=== PATIENT | female | born 1975 | race Caucasian/White ===

== ENCOUNTER → 2016-06-16 | Outpatient (REF) | payer MEDICARE, MEDICAID, OTHER ==
[~2016-06-16] MED LIST: ACET500T37 PO; MOTR200T44 PO; NEXI40CA PO; PERC5TAB6 PO; SYNT112T2 PO
[2016-06-16 17:55] LABS: FREE T4 1.28 NG/DL (0.76-1.46)
== END ==
LOC: M SFHCLERA 14:15
PROVIDERS: ATTEND Physician Assistant
DX: E03.9 Hypothyroidism, unspecified (principal)
CPT/HCPCS: 84439; 84443; G0463

== ENCOUNTER → 2016-07-22 | Outpatient (CLI) | payer MEDICARE, MEDICAID ==
--- NOTE | 2016-07-22 10:28 | REP ---
RIGHT UPPER QUADRANT ULTRASOUND: Real-time sonographic evaluation of right upper quadrant performed. Gallbladder demonstrates no evidence of intraluminal sludge or calculi, wall thickening, or pericholecystic fluid. There is no intrahepatic or extrahepatic biliary dilatation, common bile duct measuring 4 mm in diameter. Liver demonstrates heterogeneous increased echotexture compatible with diffuse fibrofatty infiltration. No gross liver or pancreatic mass is seen. Pancreas is not well seen due to overlying bowel gas. Right kidney demonstrates no hydronephrosis or nephrolithiasis with normal size at 10.1 cm in length. IMPRESSION: Diffuse fibrofatty infiltration of the liver. Signed by Twan Salcedo MD 07/22/2016 04:50 P
== END ==
LOC: M RAD 09:12
PROVIDERS: ATTEND Surgery
DX: K82.4 Cholesterolosis of gallbladder (principal)

== ENCOUNTER → 2016-08-31 | Outpatient (CLI) | payer MEDICARE, MEDICAID ==
--- NOTE | 2016-08-31 18:26 | ECHO ---
DATE OF PROCEDURE: 08/31/2016 REFERRING PHYSICIAN: Jacquelyn Vidales MD PATIENT LOCATION: Outpatient INDICATION: Pulmonary hypertension. HEIGHT: 65 inches WEIGHT: 197 pounds DIMENSIONS: IVS: 0.9 LV: 4.1 LVPW: 1.0 LA: 2.9 Aorta: 2.9 FINDINGS: The study is of good technical quality. Left ventricle is of normal size and normal left ventricle (LV) systolic function. Estimated left ventricular ejection fraction (LVEF) 60-65%. Right ventricle is also normal size and systolic function. All four cardiac valves were well visualized and appear normal. No pericardial effusion is present. Inferior vena cava is normal size. Aortic root and aortic arch appear normal. Abdominal aorta was not visualized. Doppler interrogation reveals competent aortic valve. There is also no significant mitral stenosis or insufficiency and only trace tricuspid insufficiency. Calculated pulmonary artery pressure is within normal limits. Pulmonic valve is functionally competent. Mitral inflow pattern and tissue Doppler imaging of mitral annulus reveal normal diastolic function. CONCLUSIONS: 1. Study is of good technical quality. 2. Normal left ventricle (LV) size and systolic function, normal diastolic function. 3. No significant valvular disease. 4. Normal central venous pressure and likely normal pulmonary artery pressure. COMMENT: Subacute bacterial endocarditis (SBE) prophylaxis is not recommended. This study does not support diagnosis of pulmonary hypertension.
== END ==
LOC: M CARPUL 13:05
PROVIDERS: ATTEND Internal Medicine Rheumatology
DX: M34.1 CR(E)ST syndrome (principal); I10 Essential (primary) hypertension

== ENCOUNTER → 2016-09-17 | Outpatient (REF) | payer MEDICARE, MEDICAID, OTHER ==
[2016-09-17 20:34] LABS: MEAN CORPUSCULAR HEMOGLOBIN 30.1 pg (27.0-33.0); MEAN CORPUSCULAR HGB CONC 33.3 g/dl (32.0-36.5); MEAN CORPUSCULAR VOLUME 90.5 fl (80.0-96.0); RED CELL DISTRIBUTION WIDTH 12.8 % (11.5-14.5)
[2016-09-17 21:19] LABS: ALBUMIN 3.9 GM/DL (3.2-5.2); ALBUMIN/GLOBULIN RATIO 1.15 (1.00-1.93); ALKALINE PHOSPHATASE 58 U/L (45-117); ALT/SGPT 39 U/L (12-78); ANION GAP 7 MEQ/L (8-16); AST/SGOT 23 U/L (15-37); BILIRUBIN,TOTAL 0.6 MG/DL (0.2-1.0); BLOOD UREA NITROGEN 9 MG/DL (7-18); CARBON DIOXIDE LEVEL 26 MEQ/L (21-32); CHLORIDE LEVEL 108 MEQ/L (98-107); CREATININE FOR GFR 0.92 MG/DL (0.55-1.02); GLOMERULAR FILTRATION RATE > 60.0 (>58); GLUCOSE, FASTING 75 MG/DL (70-105); POTASSIUM SERUM 4.1 MEQ/L (3.5-5.1); SODIUM LEVEL 141 MEQ/L (136-145); TOTAL PROTEIN 7.3 GM/DL (6.4-8.2)
== END ==
LOC: M SFHCLERA 15:14
PROVIDERS: ATTEND Physician Assistant
DX: R59.9 Enlarged lymph nodes, unspecified (principal); E03.9 Hypothyroidism, unspecified
CPT/HCPCS: 80053; 84439; 84443; 85027; G0463

== ENCOUNTER → 2017-03-15 | Outpatient (CLI) | payer MEDICARE, MEDICAID, OTHER ==
[~2017-03-15] MED LIST changes: +ACET-683 PO; -ACET500T37 PO; +PERC5TAB12 PO; -PERC5TAB6 PO
--- NOTE | 2017-03-15 17:02 | REP ---
Clinical: Right hip pain. Technique: Neutral and frog lateral views of the right hip. Findings: Mild age-related changes include increased sclerosis to the acetabular roof with subtle marginal spurring. No acute fracture dislocation. The femoral head/neck appear normal. Surrounding soft tissues are unremarkable. Impression: Mild age-related changes. No overt osteoarthritic degenerative changes noted. Signed by Chirag Price MD 03/15/2017 04:53 P
== END ==
LOC: M LRY 15:56
PROVIDERS: ATTEND Physician Assistant
DX: M25.551 Pain in right hip (principal); E03.9 Hypothyroidism, unspecified; Z72.0 Tobacco use; K21.9 Gastro-esophageal reflux disease without esophagitis; H91.93 Unspecified hearing loss, bilateral
CPT/HCPCS: 73502; 80053; 84443; 85027; G0463

== ENCOUNTER → 2017-03-15 | Outpatient (REF) | payer MEDICARE, MEDICAID, OTHER ==
[2017-03-15 19:06] LABS: MEAN CORPUSCULAR HEMOGLOBIN 29.1 pg (27.0-33.0); MEAN CORPUSCULAR HGB CONC 32.6 g/dl (32.0-36.5); MEAN CORPUSCULAR VOLUME 89.3 fl (80.0-96.0); PLATELET COUNT, AUTOMATED 314 10^3/uL (150-450); RED CELL DISTRIBUTION WIDTH 12.6 % (11.5-14.5); WHITE BLOOD COUNT 11.2 10^3/uL (4.0-10.0)
[2017-03-15 19:19] LABS: ALBUMIN 3.8 GM/DL (3.2-5.2); ALBUMIN/GLOBULIN RATIO 1.06 (1.00-1.93); ALKALINE PHOSPHATASE 55 U/L (45-117); ALT/SGPT 26 U/L (12-78); ANION GAP 6 MEQ/L (8-16); AST/SGOT 17 U/L (7-37); BILIRUBIN,TOTAL 0.6 MG/DL (0.2-1.0); BLOOD UREA NITROGEN 9 MG/DL (7-18); CALCIUM LEVEL 8.9 MG/DL (8.5-10.1); CARBON DIOXIDE LEVEL 24 MEQ/L (21-32); CHLORIDE LEVEL 109 MEQ/L (98-107); CREATININE FOR GFR 0.96 MG/DL (0.55-1.02); GLOMERULAR FILTRATION RATE > 60.0 (>58); GLUCOSE, FASTING 81 MG/DL (70-105); SODIUM LEVEL 139 MEQ/L (136-145); TOTAL PROTEIN 7.4 GM/DL (6.4-8.2)
== END ==
LOC: M SFHCLERA 15:51
PROVIDERS: ATTEND Physician Assistant
DX: E03.9 Hypothyroidism, unspecified (principal); M25.551 Pain in right hip

== ENCOUNTER → 2017-07-08 | Outpatient (CLI) | payer MEDICARE, MEDICAID | LOC: M RAD 08:34 | DX: M16.11 Unilateral primary osteoarthritis, right hip (principal) | CPT/HCPCS: 73721 ==

== ENCOUNTER → 2017-09-29 | Outpatient (REF) | payer MEDICARE, MEDICAID, OTHER ==
[2017-09-29 20:15] LABS: CHOLESTEROL LEVEL 185 MG/DL (<200); CHOLESTEROL RISK RATIO 4.204 (<5); HDL CHOLESTEROL 44 MG/DL (>40); NON-HDL-C 141 MG/DL; TRIGLYCERIDES LEVEL 145 MG/DL (<150)
[2017-09-29 20:16] LABS: ESTIMATED AVERAGE GLUCOSE 82 MG/DL (60-110); HEMOGLOBIN A1c 4.5 %
== END ==
LOC: M SFHCLERA 16:11
DX: Z13.1 Encounter for screening for diabetes mellitus (principal); Z13.220 Encounter for screening for lipoid disorders; F17.200 Nicotine dependence, unspecified, uncomplicated; K21.9 Gastro-esophageal reflux disease without esophagitis; I73.00 Raynaud's syndrome without gangrene; E03.9 Hypothyroidism, unspecified; K62.89 Other specified diseases of anus and rectum; M34.9 Systemic sclerosis, unspecified; E66.09 Other obesity due to excess calories; Z68.35 Body mass index [BMI] 35.0-35.9, adult; Z79.899 Other long term (current) drug therapy
CPT/HCPCS: 83036

== ENCOUNTER → 2017-11-03 | Outpatient (REF) | payer MEDICARE, MEDICAID, OTHER | LOC: M SFHCLERA 09:34 | DX: D22.5 Melanocytic nevi of trunk (principal); D22.71 Melanocytic nevi of right lower limb, including hip | CPT/HCPCS: 88305 ==

== ENCOUNTER 2018-02-10 12:30 | Day surgery (SDC) | payer MEDICARE, MEDICAID ==
[2018-02-10] MEDS: NS 1,000 ML IV (13:05)
[2018-02-10] MEDS ORDERED: PROPOFOL 200 MG/20 ML VIAL As Ordered ×2 (13:39→13:47)
== END 2018-02-10 16:42 | disposition home or self-care (01) ==
LOC: M OPP 12:30
DX: R21 Rash and other nonspecific skin eruption (principal); D12.5 Benign neoplasm of sigmoid colon; K64.8 Other hemorrhoids; R19.4 Change in bowel habit; R15.9 Full incontinence of feces; E03.9 Hypothyroidism, unspecified; K21.9 Gastro-esophageal reflux disease without esophagitis; H91.90 Unspecified hearing loss, unspecified ear; M16.11 Unilateral primary osteoarthritis, right hip; M34.9 Systemic sclerosis, unspecified; I73.01 Raynaud's syndrome with gangrene; Z79.899 Other long term (current) drug therapy; Z90.710 Acquired absence of both cervix and uterus
CPT/HCPCS: 45385

== ENCOUNTER → 2018-03-07 | Outpatient (REF) | payer MEDICARE, MEDICAID, OTHER ==
[2018-03-07 21:23] LABS: THYROID STIMULATING HORMONE 0.257 uIU/ML (0.358-3.740)
== END ==
LOC: M SFHCLERA 15:28
DX: E03.9 Hypothyroidism, unspecified (principal); Z23 Encounter for immunization
CPT/HCPCS: 84443

== ENCOUNTER → 2018-07-10 | Outpatient (CLI) | payer MEDICARE, MEDICAID ==
[~2018-07-10] MED LIST changes: +CELE1CAP9; +PANT40TA3
--- NOTE | 2018-07-23 23:32 | ECWPNPC ---
PATIENT NAME: YUSEF TAO : 1975 GENDER: FEMALE VISIT DATE: 07/10/2018 DISCHARGE DATE: 07/10/18 1606 VISIT LOCKED DATE TIME: PHYSICIAN: CYNTHIA MORA MD RESOURCE: CYNTHIA MORA MD REASON FOR APPOINTMENT 1. (R) HIP PAIN- PATIENT IS DEAF HISTORY OF PRESENT ILLNESS PAIN SCREENING: PATIENT HAS A COMPLAINT OF ACUTE OR CHRONIC PAIN :YES 42 YEAR OLD FEMALE PATIENT WITH A HSITORY OF CHRONIC LOW BACK AND RIGHT HIP PAIN. THE PATIENT DESCRIBES THE PAIN ACHING, SORE, STIFF, AND INTERMITTENT WITH A PAIN SCORE OF 4-8/10 DEPENDING ON PHYSICAL ACTIVITY. THE PATIENT SAYS THAT SHE HAS HAD THIS PAIN FOR ABOUT 2 YEARS AND IT IS LOCATED OVER HER LOW BACK AREA AND RIGHT HIP. THE PATIENT SAYS THAT HER RIGHT HIP IS CURRENTLY THE WORST PAIN. THE PATIENT SAYS THAT SHE HAS A HISTORY OF ARTHRITIS OVER HER RIGHT HIP AND HAS RECEIVED INJECTIONS WITH VARIABLE RESULTS. THE PATIENT SAYS THAT SHE HAS DIFFICULTY SLEEPING DUE TO THIS PAIN. FALL RISK SCREENING: SCREENING :NO FALLS REPORTED IN THE LAST YEAR CURRENT MEDICATIONS TAKING LEVOTHYROXINE SODIUM 112 MCG TABLET 1 TABLET ON AN EMPTY STOMACH IN THE MORNING ORALLY ONCE A DAY FOR LOW THYROID TAKING PANTOPRAZOLE SODIUM 40 MG TABLET DELAYED RELEASE 1 TABLET ORALLY ONCE A DAY TAKING SPIRONOLACTONE 50 MG TABLET 1 TABLET FOR 7 DAYS THEN INCREASE TO 2 TABLETS ORALLY WITH FOOD ONCE A DAY NOT-TAKING MELOXICAM 7.5 MG TABLET 1 TABLET ORALLY ONCE A DAY NOT-TAKING DOXYCYCLINE HYCLATE 100 MG CAPSULE 1 CAPSULE ORALLY TWICE A DAY FOR ACNE NOT-TAKING ADAPALENE 0.1 % GEL PEA SIZED AMOUNT EXTERNALLY TO FACE EVERY OTHER NIGHT NOT-TAKING [id number]-[id number] 3.5-46713-9.1 SUSPENSION APPLY ONE DROP INTO BOTH EYES FOUR TIMES A DAY DIRECTED OPHTHALMIC NOT-TAKING ADAPALENE 0.1 % GEL 1 APPLICATION TO AFFECTED AREA IN THE EVENING EXTERNALLY PEA SIZED AMOUNT TO ENTIRE FACE EVERY OTHER DAY MEDICATION LIST REVIEWED AND RECONCILED WITH THE PATIENT PAST MEDICAL HISTORY HYPOTHYROIDISM (2000) LOW BACK PAIN CREST SYNDROME ALLERGIES N.K.D.A. SURGICAL HISTORY LEFT FOOT SURGERY 1996? HYSTERECTOMY- PARTIAL 11/20/14 COLONOSCOPY 02/10/2018 FAMILY HISTORY FATHER: ALIVE, CANCER, SKIN, CANCER, PROSTATE MOTHER: ALIVE, DIABETES SIBLINGS: ALIVE, KIDNEY DISEASE (SISTER) PATERNAL GRAND FATHER: , [place] PATERNAL GRAND MOTHER: ALIVE, CORONARY ARTERY DISEASE MATERNAL GRAND FATHER: , [place] MATERNAL GRAND MOTHER: , STROKE 1 BROTHER(S) , 1 SISTER(S) . SOCIAL HISTORY GENERAL: TOBACCO USE ARE YOU A:CURRENT SMOKER ARE YOU INTERESTED IN QUITTING?NOT READY TO QUIT HOW MANY CIGARETTES A DAY DO YOU SMOKE?03-07 PATIENT COUNSELED ON THE DANGERS OF TOBACCO USE AND URGED TO QUIT:03/07/2018 SMOKING CESSATION INFORMATION GIVEN03/07/2018 LATEX QUESTIONNAIRE LATEX ALLERGY : HAVE YOU EVER DEVELOPED ANY TYPE OF REACTION AFTER HANDLING LATEX PRODUCTS SUCH RUBBER GLOVES, CONDOMS, DIAPHRAGMS, BALLOONS, SOCKS, OR UNDERWEAR?NO LATEX ALLERGY : HAVE YOU EVER DEVELOPED ANY TYPE OF REACTION DURING OR AFTER DENTAL APPOINTMENT, VAGINAL/RECTAL EXAMINATION, SURGICAL PROCEDURE, OR ANY OTHER EXPOSURE?NO DATE ASKED : 07/03/2018 LATEX RISK : HAVE YOU EVER HAD ANY DIFFICULTY BREATHING OR HIVES AFTER EATING OR HANDLING ANY FRUITS, OR VEGETABLES; SUCH KIWI, BANANAS, STONE FRUITS, OR CHESTNUTSNO LATEX RISK : DO YOU HAVE A PREVIOUS PERSONAL HISTORY OF MORE THAN NINE SURGERIES, SPINA BIFIDA, OR REPEATED CATHERTIZATIONS? NO LATEX RISK : ARE YOU FREQUENTLY EXPOSED TO LATEX PRODUCTS IN YOUR OCCUPATION?NO LUNG CANCER SCREENING SMOKING STATUS:CURRENT SMOKER IS THE PATIENT BETWEEN THE AGE OF 53 AND 75?NO BMI CARE GOAL FOLLOW-UP ABOVE NORMAL BMI FOLLOW-UPDIETARY MANAGEMENT EDUCATION, GUIDANCE, AND COUNSELING, DIETARY NEEDS EDUCATION RECREATIONAL DRUG USE DRUG USE?NO CAFFEINE CAFFEINE USE?YES HOW OFTEN AND HOW MUCH? COFFEE, TEA SEXUAL HX HAD SEX IN THE LAST 12 MONTHS (VAGINAL, ORAL, OR ANAL)?NO LMP:2014 HAVE YOU EVER HAD AN STD?NO HIV / HEP-C SCREENING HIV TEST OFFERED TO PATIENT:YES DATE OFFERED:09/29/2017 TEST ACCEPTED:NO HEP-C TEST OFFERED TO PATIENT:YES DATE OFFERED:09/29/2017 REASON:PATIENT DECLINED TEST ACCEPTED:NO REASON:PATIENT DECLINED BROCHURE PROVIDED TO PATIENTNO DENOMINATIONAL [id number] NONE LANGUAGE LANGUAGES SPOKEN:OTHER SIGN EDUCATION LEVEL OF EDUCATION:FINISHED HIGH SCHOOL LEARNING BARRIERS / SPECIAL NEEDS CHANGE FROM LAST VISIT?NO BARRIERS TO LEARNING?NO HEARING IMPAIRED?YES : PT IS DEAF VISION IMPAIRED?YES :CORRECTIVE LENSES COGNITIVELY IMPAIRED?NO READINESS TO LEARN?YES LEARNING PREFERENCES?NO LEARNING CAPABILITIES PRESENT?YES EMOTIONAL BARRIERS?NO SPECIAL DEVICES?NO ABSTRACT MAKER NEEDED?YES DOMESTIC VIOLENCE DO YOU FEEL SAFE IN YOUR ENVIRONMENT?YES OCCUPATION: UNEMPLOYED. DIET: REGULAR. EXERCISE: NO REGULAR EXERCISE. MARITAL STATUS: SINGLE. PAIN CLINIC PFS, CLERGY, PUBLIC HEALTH REFERRALS HAS THE PATIENT BEEN EDUCATED REGARDING HIS/HER PLAN OF CARE?YES HAS THE PATIENT BEEN EDUCATED REGARDING PAIN, THE RISK FOR PAIN, THE IMPORTANCE OF EFFECTIVE PAIN MANAGEMENT, AND THE PAIN ASSESSMENT PROCESS?YES ADVANCE DIRECTIVE ADVANCE DIRECTIVE DISCUSSED WITH PATIENT:YES HCP FORM GIVEN TO PT, HELP OFFERED, PT WANTS TO TAKE HOME AND THINK ABOUT IT. EM HOSPITALIZATION/MAJOR DIAGNOSTIC PROCEDURE SURGERY REVIEW OF SYSTEMS REVIEWED BY: PROVIDER: CYNTHIA MORA MD . CONSTITUTIONAL: ANY CHANGE IN YOUR MEDICAL CONDITION? NO . CHILLS NO . FEVER NO . INFECTION: DO YOU HAVE NEW INFECTIONS? NO . DO YOU HAVE HISTORY OF MRSA? NO . MUSCULOSKELETAL: ANY NEW PATTERNS OF PAIN OR NUMBNESS? YES, BILAT HAND AND FOOT NUMBNESS, TINGLING AT NIGHT . SYTEMIC LUPUS NO . GASTROENTEROLOGY: ANY NEW CHANGE IN BOWEL CONTROL? NO . BARRETTS ESOPHAGUS NO . CIRRHOSIS NO . HEPATITIS NO . LIVER FAILURE NO . ACID REFLUX YES . UNEXPLAINED WEIGHT LOSS NO . GENITOURINARY: ANY NEW CHANGE IN BLADDER CONTROL? NO . IS THERE A CHANCE YOU COULD BE ? NO . HEMATOLOGY/LYMPH: DO YOU TAKE ANY BLOOD THINNERS? (FOR EXAMPLE- COUMADIN, PLAVIX, AGGRENOX, PLATEL, PRADAXA, OR XARELTO) NO . WHEN WAS YOUR LAST DOSE? DATE: TIME: . LOW PLATELET COUNT NO . SICKLE CELL DISEASE NO . VON WILLIEBRANDS NO . FACTOR V LEIDEN NO . THALLASEMIA NO . ANEMIA NO . EASY BRUISING NO . NEUROLOGY: HAVE YOU FALLEN IN THE PAST 12 MONTHS? YES, LAST YEAR FROM LOSS OF BALANCE, PT DENIES TX FOR ANY INJURIES . ANY NEW EXTREMITY NUMBNESS OR WEAKNESS? YES, BILAT HAND AND FOOT NUMBNESS X 5 YEARS . HEAD INJURY NO . DEMENTIA NO . CEREBRAL PALSY NO . MULTIPLE SCLEROSIS NO . DIZZINESS NO . HEADACHE NO . STROKES NO . VERTIGO NO . CARDIOLOGY: DO YOU HAVE A PACEMAKER OR DEFIBRILLATOR? NO . ANGINA NO . HEART ATTACK NO . HEART SURGERY NO . CONGESTIVE HEART FAILURE/FLUID OVERLOAD NO . CHEST PAIN NO . HIGH BLOOD PRESSURE NO . IRREGULAR HEART BEAT NO . RESPIRATORY: HAVE YOU BEEN SICK IN THE PAST WEEK? NO . FEVER NO . FLU LIKE SYMPTOMS? NO . CPAP NO . BYPAP NO . ASTHMA NO . EMPHYSEMA NO . CHRONIC LUNG DISEASES NO . SHORTNESS OF BREATH ON EXERTION NO . COUGH NO . SNORING NO . INTEGUMENTARY: DO YOU HAVE ANY RASHES OR OPEN SORES? NO . ALLERGIC/IMMUNO: ARE YOU ALLERGIC TO IV DYE? NO . ANY NEW ALLERGIES? NO . PSYCHIATRIC: DO YOU HAVE THOUGHTS OF HURTING YOURSELF OR SOMEONE ELSE? NO . ARE YOU ABUSED, NEGLECTED, OR IN AN UNSAFE ENVIRONMENT? NO . ENDOCRINOLOGY: ARE YOU DIABETIC? NO . THYROID DISORDER HYPOTHYROID . OTHER: DO YOU NEED ANY PRESCRIPTIONS? NO . IF YES, PLEASE LIST: ____ . ANY NEW PROBLEMS WITH YOUR MEDICATIONS? NO . WHEN DID YOU LAST EAT? ____ . WHEN DID YOU LAST DRINK? ____ . WHAT DID YOU LAST DRINK? ____ . NAME OF PERSON DRIVING YOU HOME? ____ . DO YOU HAVE ANY OTHER QUESTIONS OR CONCERNS NO . VITAL SIGNS WT 177.8 LBS, HT 64.75 IN, BMI 29.81 INDEX, BP 128/90 MM HG, HR 91 /MIN, RR 18 /MIN, TEMP 98.7 F, OXYGEN SAT % 100%, NA INITIALS SC 13:35, REVIEWED BY: EM. EXAMINATION GENERAL EXAMINATION: PATIENT IS ALERT O X 3 AND COOPERATIVE. LUNGS CLEAR, TO AUSCULTATION. HEART: NO MURMURS OR GALLOPS; FACIAL CRANIAL NERVES ARE GROSSLY NORMAL. GOOD SYMMETRY OF FACIAL MUSCLE MOVEMENT. NORMAL VISUAL DREW. ANTALGIC GAIT. PATIENT IS USING A CANE TO AMBULATE. PAIN OVER THE INGUINAL AREA WITH ROTATION OF THE FEMORAL HEAD. TENDERNESS OVER THE LOW BACK AREA. MRI OF THE RIGHT HIP DONE ON 07/08/2017 SHOWS ARTHRITIC CHANGES. MRI OF THE LUMBAR SPINE DONE ON 10/30/2017 SHOWS FACET ARTHROPATHY CHANGES AT MULTIPLE LEVELS. ASSESSMENTS OSTEOARTHRITIS OF RIGHT HIP, UNSPECIFIED OSTEOARTHRITIS TYPE - M16.11 (PRIMARY) RIGHT HIP PAIN - M25.551 LOW BACK PAIN - M54.5 OTHER CHRONIC PAIN - G89.29 TREATMENT OSTEOARTHRITIS OF RIGHT HIP, UNSPECIFIED OSTEOARTHRITIS TYPE CLINICAL NOTES: WE DISCUSSED SEVERAL ISSUES WITH MRS. TAO'S PAIN MANAGEMENT CASE. DUE TO THE RIGHT HIP OSTEOARTHRITIS, I WOULD LIKE TO MOVE FORWARD WITH A RIGHT HIP INJECTION AT THIS TIME. WE DISCUSSED THE BENEFITS, RISKS, AND ALTERNATIVES OF THE INJECTION AND THE PATIENT WOULD LIKE TO PROCEED. THE PATIENT WILL FOLLOW UP 3 WEEKS AFTER THE INJECTION. INSTRUCTIONS WERE GIVEN, QUESTIONS WERE ANSWERED, PATIENT REPORTS UNDERSTANDING AND AGREES WITH THE PLAN. I, WENDY JIN, DOCUMENTED THE ABOVE INFORMATION ACTING A SCRIBE FOR DR. MORA. I HAVE REVIEWED THE ABOVE DOCUMENT, WRITTEN BY WENDY SANTIZOIBJoao AND I VERIFY THAT IT IS ACCURATE. DEAR DR. DAVIES:THANK YOU FOR YOUR KIND REFERRAL OF MRS TAO. IF YOU WANT TO DISCUSS HER CASE WITH ME PLEASE CALL ME AT THE PAIN CENTER AT [phone]. SINCERELY,CYNTHIA MORA, [facility] . PROCEDURE CODES FA211 ESTABILISHED PATIENT [facility] CHARGE G8427 CURRENT MEDS W/DOSAGES DOCUMENTED G8730 PAIN ASSESS POS TOOL F/U PLAN DOC DISPOSITION & COMMUNICATION FOLLOW UP 3 WEEKS ELECTRONICALLY SIGNED BY CYNTHIA MORA MD, MD ON 07/23/2018 AT 03:52 PM EDT DISCLAIMER : THIS IS A VISIT SUMMARY EXTRACTED FROM THE [employer] CHART. IT IS NOT A COPY OF THE [employer] PROGRESS NOTE. TABBY
== END ==
LOC: M PAIN 13:00
PROVIDERS: ATTEND Anesthesiology
DX: G89.29 Other chronic pain (principal); M16.11 Unilateral primary osteoarthritis, right hip; M25.551 Pain in right hip; M34.1 CR(E)ST syndrome; M54.5 Low back pain; H91.93 Unspecified hearing loss, bilateral; R20.0 Anesthesia of skin; E03.9 Hypothyroidism, unspecified; F17.210 Nicotine dependence, cigarettes, uncomplicated; Z79.899 Other long term (current) drug therapy

== ENCOUNTER → 2018-08-23 | Outpatient (CLI) | payer MEDICARE, MEDICAID ==
[~2018-08-23] MED LIST changes: +BUPIVACAINE HCL 0.25% 30 ML VIAL As Ordered ONE; +ISOVUE-M 300 61% 15ML VIAL (Q9967) As Ordered ONE; +LIDOCAINE 1% SDV INJ 30 ML VIAL As Ordered ONE; +TRIAMCINOLONE ACETONIDE SUSP 40 MG/ML VIAL (J3301) As Ordered ONE; +diazePAM 5 MG TAB As Ordered ONE; +diphenhydrAMINE 25 MG CAP As Ordered ONE
--- NOTE | 2018-08-24 09:07 | REP ---
Right hip: Limited study four views. History: Right hip injection for pain. 23 seconds of fluoroscopy time is reported. Findings: A sequence of four last image hold fluoroscopically obtained spot radiographs of the right hip document needle position and contrast injection for injection procedure Electronically Signed by Iron Lockhart MD 08/24/2018 08:58 A
--- NOTE | 2018-09-09 23:44 | ECWPNPC ---
PATIENT NAME: YUSEF TAO : 1975 GENDER: FEMALE VISIT DATE: 08/23/2018 DISCHARGE DATE: 08/23/18911 VISIT LOCKED DATE TIME: PHYSICIAN: CYNTHIA MORA MD RESOURCE: CYNTHIA MORA MD REASON FOR APPOINTMENT 1. RIGHT HIP HISTORY OF PRESENT ILLNESS HISTORY OF PRESENT ILLNESS: PAIN THE PATIENT DESCRIBES THE PAIN... FALL RISK SCREENING: SCREENING :NO FALLS REPORTED IN THE LAST YEAR CURRENT MEDICATIONS TAKING SPIRONOLACTONE 25 MG TABLET 2 TABLETS ORALLY ONCE A DAY, NOTES: 08/22 1799 TAKING PANTOPRAZOLE SODIUM 40 MG TABLET DELAYED RELEASE 1 TABLET ORALLY ONCE A DAY, NOTES: 08/22 1799 TAKING LEVOTHYROXINE SODIUM 112 MCG TABLET 1 TABLET ON AN EMPTY STOMACH IN THE MORNING ORALLY ONCE A DAY FOR LOW THYROID, NOTES: 08/23 1000 TAKING ADAPALENE 0.1 % GEL PEA SIZED AMOUNT EXTERNALLY TO FACE EVERY OTHER NIGHT, NOTES: 1-2 WEEKS AGO TAKING [id number] 3.5-17208-7.1 SUSPENSION APPLY ONE DROP INTO BOTH EYES FOUR TIMES A DAY DIRECTED OPHTHALMIC , NOTES: 1 MONTH AGO NOT-TAKING MELOXICAM 7.5 MG TABLET 1 TABLET ORALLY ONCE A DAY NOT-TAKING DOXYCYCLINE HYCLATE 100 MG CAPSULE 1 CAPSULE ORALLY TWICE A DAY FOR ACNE DISCONTINUED ADAPALENE 0.1 % GEL 1 APPLICATION TO AFFECTED AREA IN THE EVENING EXTERNALLY PEA SIZED AMOUNT TO ENTIRE FACE EVERY OTHER DAY, NOTES: DUPLICATE MEDICATION LIST REVIEWED AND RECONCILED WITH THE PATIENT PAST MEDICAL HISTORY HYPOTHYROIDISM (2000) LOW BACK PAIN 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 SURGICAL HISTORY LEFT FOOT SURGERY 1996? HYSTERECTOMY- PARTIAL 11/20/14 COLONOSCOPY 02/10/2018 FAMILY HISTORY FATHER: ALIVE, CANCER, SKIN, CANCER, PROSTATE MOTHER: ALIVE, DIABETES SIBLINGS: ALIVE, KIDNEY DISEASE (SISTER) PATERNAL GRAND FATHER: , [place] PATERNAL GRAND MOTHER: ALIVE, CORONARY ARTERY DISEASE MATERNAL GRAND FATHER: , [place] MATERNAL GRAND MOTHER: , STROKE 1 BROTHER(S) , 1 SISTER(S) . SOCIAL HISTORY GENERAL: TOBACCO USE ARE YOU A:CURRENT SMOKER ARE YOU INTERESTED IN QUITTING?NOT READY TO QUIT COUNSELED THE PATIENT ON SMOKING EFFECTS, EDUCATION [id number]/08/2019 HOW MANY CIGARETTES A DAY DO YOU SMOKE?11-20 PATIENT COUNSELED ON THE DANGERS OF TOBACCO USE AND URGED TO QUIT:03/07/2018 SMOKING CESSATION INFORMATION GIVEN03/07/2018 HIV / HEP-C SCREENING HIV TEST OFFERED TO PATIENT:YES DATE OFFERED:09/29/2017 TEST ACCEPTED:NO HEP-C TEST OFFERED TO PATIENT:YES DATE OFFERED:09/29/2017 REASON:PATIENT DECLINED TEST ACCEPTED:NO REASON:PATIENT DECLINED BROCHURE PROVIDED TO PATIENTNO OTHERS AT HOME: IV'S TO RIGHT ARM ONLY, PT HAS CREST SYNDROME. EDUCATION LEVEL OF EDUCATION:FINISHED HIGH SCHOOL DIET: REGULAR. LANGUAGE LANGUAGES SPOKEN:OTHER SIGN DOMESTIC VIOLENCE DO YOU FEEL SAFE IN YOUR ENVIRONMENT?YES BMI CARE GOAL FOLLOW-UP ABOVE NORMAL BMI FOLLOW-UPDIETARY MANAGEMENT EDUCATION, GUIDANCE, AND COUNSELING, DIETARY NEEDS EDUCATION RECREATIONAL DRUG USE DRUG USE?NO EXERCISE: NO REGULAR EXERCISE. LEARNING BARRIERS / SPECIAL NEEDS CHANGE FROM LAST VISIT?NO BARRIERS TO LEARNING?NO HEARING IMPAIRED?YES : PT IS DEAF VISION IMPAIRED?YES :CORRECTIVE LENSES COGNITIVELY IMPAIRED?NO READINESS TO LEARN?YES LEARNING PREFERENCES?NO LEARNING CAPABILITIES PRESENT?YES EMOTIONAL BARRIERS?NO SPECIAL DEVICES?NO RECREATION TEACHER NEEDED?YES LUNG CANCER SCREENING SMOKING STATUS:CURRENT SMOKER IS THE PATIENT BETWEEN THE AGE OF 53 AND 75?NO PAIN CLINIC PFS, CLERGY, PUBLIC HEALTH REFERRALS HAS THE PATIENT BEEN EDUCATED REGARDING HIS/HER PLAN OF CARE?YES HAS THE PATIENT BEEN EDUCATED REGARDING PAIN, THE RISK FOR PAIN, THE IMPORTANCE OF EFFECTIVE PAIN MANAGEMENT, AND THE PAIN ASSESSMENT PROCESS?YES LATEX QUESTIONNAIRE LATEX ALLERGY : HAVE YOU EVER DEVELOPED ANY TYPE OF REACTION AFTER HANDLING LATEX PRODUCTS SUCH RUBBER GLOVES, CONDOMS, DIAPHRAGMS, BALLOONS, SOCKS, OR UNDERWEAR?NO LATEX ALLERGY : HAVE YOU EVER DEVELOPED ANY TYPE OF REACTION DURING OR AFTER DENTAL APPOINTMENT, VAGINAL/RECTAL EXAMINATION, SURGICAL PROCEDURE, OR ANY OTHER EXPOSURE?NO DATE ASKED : 07/03/2018 LATEX RISK : HAVE YOU EVER HAD ANY DIFFICULTY BREATHING OR HIVES AFTER EATING OR HANDLING ANY FRUITS, OR VEGETABLES; SUCH KIWI, BANANAS, STONE FRUITS, OR CHESTNUTSNO LATEX RISK : DO YOU HAVE A PREVIOUS PERSONAL HISTORY OF MORE THAN NINE SURGERIES, SPINA BIFIDA, OR REPEATED CATHERTIZATIONS? NO LATEX RISK : ARE YOU FREQUENTLY EXPOSED TO LATEX PRODUCTS IN YOUR OCCUPATION?NO CAFFEINE CAFFEINE USE?YES HOW OFTEN AND HOW MUCH? COFFEE, TEA ADVANCE DIRECTIVE ADVANCE DIRECTIVE DISCUSSED WITH PATIENT:YES HCP FORM GIVEN TO PT, HELP OFFERED, PT WANTS TO TAKE HOME AND THINK ABOUT IT. EM CHEONDOISM [id number] NONE MARITAL STATUS: SINGLE. OCCUPATION: UNEMPLOYED. SEXUAL HX HAD SEX IN THE LAST 12 MONTHS (VAGINAL, ORAL, OR ANAL)?NO LMP:2014 HAVE YOU EVER HAD AN STD?NO HOSPITALIZATION/MAJOR DIAGNOSTIC PROCEDURE SURGERY REVIEW OF SYSTEMS REVIEWED BY: PROVIDER: . CONSTITUTIONAL: ANY CHANGE IN YOUR MEDICAL CONDITION? NO . CHILLS NO . FEVER NO . INFECTION: DO YOU HAVE NEW INFECTIONS? NO . DO YOU HAVE HISTORY OF MRSA? NO . MUSCULOSKELETAL: ANY NEW PATTERNS OF PAIN OR NUMBNESS? NO . GASTROENTEROLOGY: ANY NEW CHANGE IN BOWEL CONTROL? NO . GENITOURINARY: ANY NEW CHANGE IN BLADDER CONTROL? NO . IS THERE A CHANCE YOU COULD BE ? NO . HEMATOLOGY/LYMPH: DO YOU TAKE ANY BLOOD THINNERS? (FOR EXAMPLE- COUMADIN, PLAVIX, AGGRENOX, PLATEL, PRADAXA, OR XARELTO) NO . WHEN WAS YOUR LAST DOSE? DATE: TIME: . NEUROLOGY: HAVE YOU FALLEN IN THE PAST 12 MONTHS? NO . ANY NEW EXTREMITY NUMBNESS OR WEAKNESS? NO . CARDIOLOGY: DO YOU HAVE A PACEMAKER OR DEFIBRILLATOR? NO . RESPIRATORY: HAVE YOU BEEN SICK IN THE PAST WEEK? NO . FEVER NO . FLU LIKE SYMPTOMS? NO . COUGH NO . INTEGUMENTARY: DO YOU HAVE ANY RASHES OR OPEN SORES? NO . ALLERGIC/IMMUNO: ARE YOU ALLERGIC TO IV DYE? NO . ANY NEW ALLERGIES? NO . PSYCHIATRIC: DO YOU HAVE THOUGHTS OF HURTING YOURSELF OR SOMEONE ELSE? NO . ARE YOU ABUSED, NEGLECTED, OR IN AN UNSAFE ENVIRONMENT? NO . ENDOCRINOLOGY: ARE YOU DIABETIC? NO . OTHER: DO YOU NEED ANY PRESCRIPTIONS? NO . IF YES, PLEASE LIST: ____ . ANY NEW PROBLEMS WITH YOUR MEDICATIONS? NO . WHEN DID YOU LAST EAT? 08/22/18 1700 . WHEN DID YOU LAST DRINK? 08/23/18 1000 . WHAT DID YOU LAST DRINK? WATER . NAME OF PERSON DRIVING YOU HOME? [employer] . DO YOU HAVE ANY OTHER QUESTIONS OR CONCERNS NO . VITAL SIGNS WT 166.2 LBS, HT 64.75 IN, BMI 27.87 INDEX, BP 142/92 MM HG, HR 81 /MIN, RR 18 /MIN, TEMP 97.1 F, OXYGEN SAT % 100%, NA INITIALS SC 13:07, REVIEWED BY: EM. ASSESSMENTS OSTEOARTHRITIS OF RIGHT HIP, UNSPECIFIED OSTEOARTHRITIS TYPE - M16.11 (PRIMARY) RIGHT HIP PAIN - M25.551 TREATMENT OSTEOARTHRITIS OF RIGHT HIP, UNSPECIFIED OSTEOARTHRITIS TYPE [facility] FLUORO GUIDANCE (PAIN)[id number] PROCEDURES PREOPERATIVE DIAGNOSIS: RIGHT HIP OSTEOARTHRITIS. HIP PAINPOSTOPERATIVE DIAGNOSIS: RIGHT HIP OSTEOARTHRITIS. HIP PAINPROCEDURE: INJECTION OF THE RIGHT HIP JOINT UNDER FLUOROSCOPIC GUIDANCESURGEON: CYNTHIA STORY MDANESTHESIA: LOCALPREOPERATIVE NOTE: THE PATIENT HAS HISTORY OF RIGHT HIP PAIN. I EVALUATE THE PATIENT AND REVIEWED THE CHART. I WENT THROUGH THE RISK ALTERNATIVES AND BENEFITS ASSOCIATED WITH A HIP INJECTION WHICH INCLUDE INFECTIONS, NERVE DAMAGE INJECTION INSIDE OF A BLOOD VESSEL, CARDIOVASCULAR REST. PATIENT EXPRESSED THAT WILL LIKE TO PROCEED. THE PATIENT DENIES UNEXPLAINABLE WEIGHT LOSS FEVER CHILLS NEW CHANGES ON HER MEDICAL CONDITION.PROCEDURE NOTE: AFTER CONSENT WAS REVIEWED WITH THE PATIENT WAS BROUGHT TO THE PROCEDURE ROOM AND PLACED IN THE SUPINE POSITION. THE RIGHT INGUINAL AREA WAS CLEANED WITH CHLORAPREP SOLUTION AND DRAPED ASEPTICALLY. PROCEDURE WAS DONE UNDER STERILE CONDITIONS. UNDER FLUOROSCOPIC GUIDANCE A 22-GAUGE SPINAL NEEDLE WAS ADVANCED TO THE LATERAL ASPECT OF THE FEMORAL NECK. I PALPATE AND EVALUATE THE RIGHT INGUINAL AREA .THE POSITION OF THE FEMORAL ARTERY WAS IDENTIFIED. NEEDLE WAS ADVANCED UNDER FLUOROSCOPIC GUIDANCE. AFTER PROPER POSITION OF THE NEEDLE WAS ACHIEVED ISOVUE-M DYE 30% 0.25 ML WAS INJECTED SHOWING ADEQUATE SPREAD OF THE DYE. THEN A SOLUTION OF 3 ML OF BUPIVACAINE 0.125% AND KENALOG 40 MG WAS INJECTED SLOWLY FOLLOWING PATIENT FEEDBACK. THERE WAS NO EVIDENCE OF BLOOD, PARESTHESIA OR ANY OTHER COMPLICATION. PATIENT WAS SENT TO THE RECOVERY ROOM WHERE SHE WAS MOVING THE EXTREMITIES. THERE WERE NO COMPLICATIONS DURING THE PROCEDURE. FLUOROSCOPY TIME WAS 23 SECONDS. POSTOPERATIVE NOTE: PATIENT IS GOING TO BE SITTING IN A FOLLOW-UP. WE ARE LOOKING FOR LASTING PAIN RELIEF WITH THIS INTERVENTION. INSTRUCTIONS WERE GIVING, QUESTIONS WERE ANSWERED, THE PATIENT REPORTS UNDERSTANDING AND AGREES WITH THE PLAN. I, WENDY JIN, DOCUMENTED THE ABOVE INFORMATION ACTING A SCRIBE FOR DR. MORA. I HAVE REVIEWED THE ABOVE DOCUMENT, WRITTEN BY WENDY SANTIZOIBJoao AND I VERIFY THAT IT IS ACCURATE. PROCEDURE CODES 6045F RADXPS IN END [id number] PXD [id number] NEEDLE LOCALIZATION BY XRAY, MODIFIERS: 26 DRAIN/INJ JOINT/BURSA W/O US, MODIFIERS: RT DISPOSITION & COMMUNICATION FOLLOW UP 3 WEEKS ELECTRONICALLY SIGNED BY CYNTHIA MORA MD, MD ON 09/09/2018 AT 04:09 PM EDT DISCLAIMER : THIS IS A VISIT SUMMARY EXTRACTED FROM THE [employer] CHART. IT IS NOT A COPY OF THE [employer] PROGRESS NOTE. TABBY
== END ==
LOC: M PAIN 13:00
PROVIDERS: ATTEND Anesthesiology
DX: M16.11 Unilateral primary osteoarthritis, right hip (principal); M25.551 Pain in right hip; E03.9 Hypothyroidism, unspecified; M34.1 CR(E)ST syndrome; H91.93 Unspecified hearing loss, bilateral; F17.210 Nicotine dependence, cigarettes, uncomplicated; Z79.899 Other long term (current) drug therapy
CPT/HCPCS: 20610; 77002; J3301; Q9967

== ENCOUNTER → 2018-09-04 | Outpatient (REF) | payer MEDICARE, MEDICAID ==
[~2018-09-04] MED LIST changes: -BUPIVACAINE HCL 0.25% 30 ML VIAL As Ordered ONE; -ISOVUE-M 300 61% 15ML VIAL (Q9967) As Ordered ONE; -LIDOCAINE 1% SDV INJ 30 ML VIAL As Ordered ONE; -TRIAMCINOLONE ACETONIDE SUSP 40 MG/ML VIAL (J3301) As Ordered ONE; -diazePAM 5 MG TAB As Ordered ONE; -diphenhydrAMINE 25 MG CAP As Ordered ONE
[2018-09-04 20:48] LABS: BLOOD UREA NITROGEN 10 MG/DL (7-18); CALCIUM LEVEL 9.4 MG/DL (8.5-10.1); CARBON DIOXIDE LEVEL 25 MEQ/L (21-32); CHLORIDE LEVEL 108 MEQ/L (98-107); GLOMERULAR FILTRATION RATE > 60.0 (>58); GLUCOSE, FASTING 81 MG/DL (70-100); POTASSIUM SERUM 3.7 MEQ/L (3.5-5.1); SODIUM LEVEL 141 MEQ/L (136-145); THYROID STIMULATING HORMONE 0.085 uIU/ML (0.358-3.740)
== END ==
LOC: M SFHCLERA 15:12
PROVIDERS: ATTEND Family Medicine
DX: E03.9 Hypothyroidism, unspecified (principal); L70.0 Acne vulgaris
CPT/HCPCS: 80048; 84443; G0463

== ENCOUNTER → 2018-10-03 | Outpatient (CLI) | payer MEDICARE, MEDICAID ==
[~2018-10-03] MED LIST changes: +E-Z-GAS II EFFERVESCENT PACKET (SODIUM BICARB./CITRIC ACID/SIMETHICONE) As Ordered ONE; +E-Z-HD 98% w/w 340GM SUSP BTL As Ordered ONE; +E-Z-PAQUE 96% w/w SUSP 176GM BTL As Ordered ONE
--- NOTE | 2018-10-03 16:27 | REP ---
Examination Requested: Esophagram Barium Swallow Reason For Exam/Comment: Dysphasia Esophagram: The procedure was performed ABBY Renee, under the direct supervision of Dr. Rodriguez. The images were reviewed with Dr. Rodriguez. A single PA chest x-ray is submitted as a unit tender film. The superior mediastinal structures are midline. The heart size is within normal limits. The lungs are clear. Liquid barium and gas producing granules were given in the erect position as well as liquid barium in the prone oblique position, in order to perform a double contrast esophagram examination. Oral and pharyngeal stages of the examination were unremarkable. Esophageal transport is efficient and there is no esophagitis, stricture, or mucosal ring noted. There is no hiatal hernia noted. Gastroesophageal reflux was not visualized throughout the course of the exam. Impression: 1. Unremarkable esophagram. 0.6 minutes of fluoroscopy time was utilized for this procedure. Reviewed by ABBY David 10/03/2018 03:12 P Electronically Signed by Twan Rodriguez MD 10/03/2018 04:18 P
== END ==
LOC: M RAD 08:30
PROVIDERS: ATTEND Family Medicine
DX: R13.10 Dysphagia, unspecified (principal)

== ENCOUNTER → 2018-10-05 | Outpatient (CLI) | payer MEDICARE, MEDICAID ==
[~2018-10-05] MED LIST changes: -E-Z-GAS II EFFERVESCENT PACKET (SODIUM BICARB./CITRIC ACID/SIMETHICONE) As Ordered ONE; -E-Z-HD 98% w/w 340GM SUSP BTL As Ordered ONE; -E-Z-PAQUE 96% w/w SUSP 176GM BTL As Ordered ONE
--- NOTE | 2018-10-10 14:14 | REP ---
DIGITAL DIAGNOSTIC BILATERAL MAMMOGRAPHY WITH CAD, 3D TOMOGRAPHY, AND FOCUSED RIGHT BREAST SONOGRAPHY: HISTORY: Palpable lump in the right breast times 2 weeks. A 3.3 cm lump 3.5 cm from the areolar edge at 1-o'clock position on clinician breast exam. Comparison is made with prior mammography and bilateral breast sonography from June 03, 2017 and June 10, 2017 respectively. Comparison mammography is also reviewed from April 09, 2016 and March 18, 2015. MAMMOGRAPHIC FINDINGS: Routine views of the right breast are augmented by magnified focal spot compression images. A skin marker is affixed to the skin at the site of the palpable lump right breast. Bilateral routine views and 3D tomography are acquired. Breast parenchyma is heterogeneously dense in a pattern which may inhibit the sensitivity of mammography. At the site of the palpable lump, there is a fairly well-circumscribed 3.1 cm x 2.6 cm x 2.6 cm mass in the superior and medial quadrant of the right breast corresponding to the area of the palpable abnormality. Breast parenchyma is heterogeneously dense. There are disbursed microcalcifications present bilaterally. Some of these are located in the vicinity of the palpable lump but they are unchanged and punctate. No spiculation is seen. The mass is visualized on 3D tomography images and has somewhat lobulated or macrolobulated contours. No other abnormality is seen on tomography. SONOGRAPHIC FINDINGS: The right breast is scanned medially from 12-o'clock position to 6-o'clock position. At 1-o'clock position, there is a 2.7 x 2.3 x 2.3 cm anechoic area approximately 5.1 cm from the nipple. This has a well defined back wall and enhanced through transmission consistent with a simple cyst. At 3-o'clock position, there are two anechoic areas measuring 0.3 and 0.6 cm in greatest diameter consistent with small cysts. At 6-o'clock position, there is a 0.8 cm cyst. No sonographically suspicious finding. IMPRESSION: BIRADS 2: BI-RADS/ACR category 2 mammogram. Benign Findings. BIRADS category 2 benign findings. 2.7 cm cyst in the superomedial quadrant of the right breast. This is slightly more prominent than on the prior mammogram. No other suspicious abnormality. This mammogram was interpreted with the aid of an FDA-approved computer-aided detection system. The patient states she had a clinical breast exam in September 2018. The patient letter being requested is M2 dense. This patient's estimated [facility] lifetime risk assessment for the breast cancer is 20.8 %. Enhanced screening in the form of annual bilateral breast MRI scanning is warranted. Bilateral breast MRI scanning is recommended annually, beginning 6 months from now. Electronically Signed by Iron Lockhart MD 10/10/2018 04:00 P
== END ==
LOC: M RAD 15:19
PROVIDERS: ATTEND Family Medicine
DX: Z12.31 Encounter for screening mammogram for malignant neoplasm of breast (principal); N63.10 Unspecified lump in the right breast, unspecified quadrant
CPT/HCPCS: 76642; 77066; G0279

== ENCOUNTER → 2018-10-06 | Outpatient (CLI) | payer MEDICARE, MEDICAID ==
--- NOTE | 2018-10-15 23:41 | ECWPNPC ---
PATIENT NAME: YUSEF TAO : 1975 GENDER: FEMALE VISIT DATE: 10/06/2018 DISCHARGE DATE: 10/06/18 1451 VISIT LOCKED DATE TIME: PHYSICIAN: CYNTHIA MORA MD RESOURCE: CYNTHIA MORA MD REASON FOR APPOINTMENT 1. POST PROC HISTORY OF PRESENT ILLNESS HISTORY OF PRESENT ILLNESS: PAIN THE PATIENT DESCRIBES THE PAIN... 42 YEAR OLD FEMALE PATIENT WITH A HISTORY OF CHRONIC LOW BACK AND RIGHT HIP PAIN. THE PATIENT DESCRIBES THE PAIN ACHING, SHARP, STIFF, DAILY, AND CONTINUOUS WITH A PAIN SCORE OF 7-10/10 DEPENDING ON PHYSICAL ACTIVITY. THE PATIENT SAYS SHE HAS HAD THIS PAIN FOR A COUPLE OF YEARS. THE PATIENT RECEIVED A RIGHT HIP INJECTION ON 08/23/2018, WHICH SHE SAYS OFFERED SOME PAIN RELIEF, HOWEVER THE PAIN HAS RETURNED. THE PATIENT SAYS THE MAIN PAIN IS IN HER LOW BACK THAT FEELS LIKE A SHARP PAIN AND STIFFNESS IN THE MIDDLE OF HER BACK THAT GETS WORSE WITH HER STOMACH PAIN, MOVING, AND PHYSICAL ACTIVITY. THE PATIENT SAYS SHE HAS BEEN HAVING SOME STOMACH ISSUES AND WILL BE HAVING AN ENDOSCOPY DONE TO SEE WHAT IS THE ISSUE. THE PATIENT SAYS SHE IS USING TYLENOL TO HELP WITH HER PAIN, BUT DOES NOT OFFER MUCH RELIEF WITH HER LOW BACK PAIN. THE PATIENT SAYS TUMS DOES NOT HELP WITH HER STOMACH PAIN, BUT PANTOPRAZOLE SODIUM FOR ACID REFLUX HELPS RELIEVE HER PAIN. THE PATIENT MENTIONED SHE HAD A MAMMOGRAM DONE RECENTLY AND A LUMP WAS FOUND. PATIENT DENIES UNEXPLAINABLE WEIGHT LOSS, FEVER, CHILLS, NEW CHANGES ON HER URINARY OR BOWEL CONTROL. FALL RISK SCREENING: SCREENING :NO FALLS REPORTED IN THE LAST YEAR CURRENT MEDICATIONS TAKING PANTOPRAZOLE SODIUM 40 MG TABLET DELAYED RELEASE 1 TABLET ORALLY ONCE A DAY TAKING ADAPALENE 0.1 % GEL PEA SIZED AMOUNT EXTERNALLY TO FACE NEEDED TAKING [id number] 3.5-67089-4.1 SUSPENSION APPLY ONE DROP INTO BOTH EYES FOUR TIMES A DAY DIRECTED OPHTHALMIC NEEDED TAKING SPIRONOLACTONE 25 MG TABLET 2 TABLETS ORALLY ONCE A DAY TAKING LEVOTHYROXINE SODIUM 100 MCG TABLET 1 TABLET ON AN EMPTY STOMACH IN THE MORNING ORALLY ONCE A DAY TAKING TYLENOL EXTRA STRENGTH 500 MG TABLET 1 TABLET NEEDED ORALLY EVERY 6 HRS NOT-TAKING DOCUSATE SODIUM 250 MG CAPSULE 1 CAPSULE NEEDED ORALLY ONCE A DAY, NOTES: NOT STARTED YET-INSURANCE WOULD NOT COVER NOT-TAKING MELOXICAM 7.5 MG TABLET 1 TABLET ORALLY ONCE A DAY NOT-TAKING DOXYCYCLINE HYCLATE 100 MG CAPSULE 1 CAPSULE ORALLY TWICE A DAY FOR ACNE MEDICATION LIST REVIEWED AND RECONCILED WITH THE PATIENT PAST MEDICAL HISTORY HYPOTHYROIDISM (2000) LOW BACK PAIN 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 SURGICAL HISTORY LEFT FOOT SURGERY 1996? HYSTERECTOMY- PARTIAL 11/20/14 COLONOSCOPY 02/10/2018 FAMILY HISTORY FATHER: ALIVE, CANCER, SKIN, CANCER, PROSTATE MOTHER: ALIVE, DIABETES SIBLINGS: ALIVE, KIDNEY DISEASE (SISTER) PATERNAL GRAND FATHER: , [place] PATERNAL GRAND MOTHER: ALIVE, CORONARY ARTERY DISEASE MATERNAL GRAND FATHER: , [place] MATERNAL GRAND MOTHER: , STROKE 1 BROTHER(S) , 1 SISTER(S) . SOCIAL HISTORY GENERAL: TOBACCO USE ARE YOU A:CURRENT SMOKER HOW OFTEN DO YOU SMOKE CIGARETTES?EVERY DAY HOW MANY CIGARETTES A DAY DO YOU SMOKE?6-10 ARE YOU INTERESTED IN QUITTING?THINKING ABOUT QUITTING PATIENT COUNSELED ON THE DANGERS OF TOBACCO USE AND URGED TO QUIT:10/04/2018 SMOKING CESSATION INFORMATION GIVEN10/04/2018 HIV / HEP-C SCREENING HIV TEST OFFERED TO PATIENT:YES DATE OFFERED:09/29/2017 TEST ACCEPTED:NO HEP-C TEST OFFERED TO PATIENT:YES DATE OFFERED:09/29/2017 REASON:PATIENT DECLINED TEST ACCEPTED:NO REASON:PATIENT DECLINED BROCHURE PROVIDED TO PATIENTNO OTHERS AT HOME: IV'S TO RIGHT ARM ONLY, PT HAS CREST SYNDROME. EDUCATION LEVEL OF EDUCATION:FINISHED HIGH SCHOOL DIET: REGULAR. LANGUAGE LANGUAGES SPOKEN:OTHER SIGN DOMESTIC VIOLENCE DO YOU FEEL SAFE IN YOUR ENVIRONMENT?YES BMI CARE GOAL FOLLOW-UP ABOVE NORMAL BMI FOLLOW-UPDIETARY MANAGEMENT EDUCATION, GUIDANCE, AND COUNSELING, DIETARY NEEDS EDUCATION RECREATIONAL DRUG USE DRUG USE?NO EXERCISE: NO REGULAR EXERCISE. 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 :CORRECTIVE LENSES READINESS TO LEARN?YES LEARNING PREFERENCES?NO LEARNING CAPABILITIES PRESENT?YES EMOTIONAL BARRIERS?NO SPECIAL DEVICES?NO MOTOR EQUIPMENT CAPTAIN NEEDED?YES LUNG CANCER SCREENING SMOKING STATUS:CURRENT SMOKER IS THE PATIENT BETWEEN THE AGE OF 53 AND 75?NO PAIN CLINIC PFS, CLERGY, PUBLIC HEALTH REFERRALS HAS THE PATIENT BEEN EDUCATED REGARDING HIS/HER PLAN OF CARE?YES HAS THE PATIENT BEEN EDUCATED REGARDING PAIN, THE RISK FOR PAIN, THE IMPORTANCE OF EFFECTIVE PAIN MANAGEMENT, AND THE PAIN ASSESSMENT PROCESS?YES LATEX QUESTIONNAIRE LATEX ALLERGY : HAVE YOU EVER DEVELOPED ANY TYPE OF REACTION AFTER HANDLING LATEX PRODUCTS SUCH RUBBER GLOVES, CONDOMS, DIAPHRAGMS, BALLOONS, SOCKS, OR UNDERWEAR?NO LATEX ALLERGY : HAVE YOU EVER DEVELOPED ANY TYPE OF REACTION DURING OR AFTER DENTAL APPOINTMENT, VAGINAL/RECTAL EXAMINATION, SURGICAL PROCEDURE, OR ANY OTHER EXPOSURE?NO DATE ASKED : 07/03/2018 LATEX RISK : HAVE YOU EVER HAD ANY DIFFICULTY BREATHING OR HIVES AFTER EATING OR HANDLING ANY FRUITS, OR VEGETABLES; SUCH KIWI, BANANAS, STONE FRUITS, OR CHESTNUTSNO LATEX RISK : DO YOU HAVE A PREVIOUS PERSONAL HISTORY OF MORE THAN NINE SURGERIES, SPINA BIFIDA, OR REPEATED CATHERTIZATIONS? NO LATEX RISK : ARE YOU FREQUENTLY EXPOSED TO LATEX PRODUCTS IN YOUR OCCUPATION?NO CAFFEINE CAFFEINE USE?YES HOW OFTEN AND HOW MUCH? COFFEE, TEA ADVANCE DIRECTIVE ADVANCE DIRECTIVE DISCUSSED WITH PATIENT:YES HCP FORM GIVEN TO PT, HELP OFFERED, PT WANTS TO TAKE HOME AND THINK ABOUT IT. 10/06/18 HOLINESS [id number] NONE MARITAL STATUS: SINGLE. OCCUPATION: UNEMPLOYED. SEXUAL HX HAD SEX IN THE LAST 12 MONTHS (VAGINAL, ORAL, OR ANAL)?NO LMP:2014 HAVE YOU EVER HAD AN STD?NO REVIEWED WITH PT 10/06/18 1318 BV. HOSPITALIZATION/MAJOR DIAGNOSTIC PROCEDURE SURGERY REVIEW OF SYSTEMS REVIEWED BY: PROVIDER: CYNTHIA MORA MD . CONSTITUTIONAL: ANY CHANGE IN YOUR MEDICAL CONDITION? NO . CHILLS NO . FEVER NO . INFECTION: DO YOU HAVE NEW INFECTIONS? NO . DO YOU HAVE HISTORY OF MRSA? NO . MUSCULOSKELETAL: ANY NEW PATTERNS OF PAIN OR NUMBNESS? NO . GASTROENTEROLOGY: ANY NEW CHANGE IN BOWEL CONTROL? NO . GENITOURINARY: ANY NEW CHANGE IN BLADDER CONTROL? NO . IS THERE A CHANCE YOU COULD BE ? NO . HEMATOLOGY/LYMPH: DO YOU TAKE ANY BLOOD THINNERS? (FOR EXAMPLE- COUMADIN, PLAVIX, AGGRENOX, PLATEL, PRADAXA, OR XARELTO) NO . WHEN WAS YOUR LAST DOSE? DATE: TIME: . NEUROLOGY: HAVE YOU FALLEN IN THE PAST 12 MONTHS? NO . ANY NEW EXTREMITY NUMBNESS OR WEAKNESS? NO . CARDIOLOGY: DO YOU HAVE A PACEMAKER OR DEFIBRILLATOR? NO . RESPIRATORY: HAVE YOU BEEN SICK IN THE PAST WEEK? NO . FEVER NO . FLU LIKE SYMPTOMS? NO . COUGH NO . INTEGUMENTARY: DO YOU HAVE ANY RASHES OR OPEN SORES? NO . ALLERGIC/IMMUNO: ARE YOU ALLERGIC TO IV DYE? NO . ANY NEW ALLERGIES? NO . PSYCHIATRIC: DO YOU HAVE THOUGHTS OF HURTING YOURSELF OR SOMEONE ELSE? NO . ARE YOU ABUSED, NEGLECTED, OR IN AN UNSAFE ENVIRONMENT? NO . ENDOCRINOLOGY: ARE YOU DIABETIC? NO . OTHER: DO YOU NEED ANY PRESCRIPTIONS? NO . IF YES, PLEASE LIST: ____ . ANY NEW PROBLEMS WITH YOUR MEDICATIONS? NO . WHEN DID YOU LAST EAT? ____ . WHEN DID YOU LAST DRINK? ____ . WHAT DID YOU LAST DRINK? ____ . NAME OF PERSON DRIVING YOU HOME? ____ . DO YOU HAVE ANY OTHER QUESTIONS OR CONCERNS NO . VITAL SIGNS WT 167 LBS, HT 64.75 IN, BMI 28.00 INDEX, BP 113/57 MM HG, HR 80 /MIN, RR 16 /MIN, TEMP 97.7 F, OXYGEN SAT % 98%, NA INITIALS SC 13:17. EXAMINATION GENERAL EXAMINATION: PATIENT IS ALERT O X 3 AND COOPERATIVE. TENDERNESS IN THE LOW BACK. PRESENCE OF BANDS OF TISSUE AND TRIGGER POINTS WITH RESTRICTION OF MOVEMENT OF THE LOW BACK. MRI OF THE LUMBAR SPINE DONE ON 09/30/2017 SHOWS FACET ARTHROPATHY CHANGES. ASSESSMENTS MYALGIA, OTHER SITE - M79.18 (PRIMARY) LUMBAR PAIN - M54.5 TREATMENT MYALGIA, OTHER SITE CLINICAL NOTES: WE DISCUSSED SEVERAL ISSUES WITH MS. TAO'S PAIN MANAGEMENT CASE. DUE TO THE TRIGGER POINTS, BANDS OF TISSUE, AND RESTRICTION OF MOVEMENT, I WOULD LIKE TO MOVE FORWARD WITH A TRIGGER POINT INJECTION AT THIS TIME. WE DISCUSSED THE BENEFITS, RISKS, AND ALTERNATIVES OF THE INJECTION AND THE PATIENT WOULD LIKE TO PROCEED. I WOULD LIKE TO AVOID PRESCRIBING ANY MEDICATION FOR THE MOMENT AND FOCUS ON RELIEVING THE PATIENT'S PAIN THROUGH INTERVENTIONAL THERAPIES DUE TO HER CURRENT STOMACH ISSUES. THE PATIENT SAID SHE WILL BE HAVING AN ENDOSCOPY PERFORMED IN THE NEAR FUTURE TO FIND THE CAUSE OF THE STOMACH PAIN. THE PATIENT WILL FOLLOW UP IN SEVERAL WEEKS AFTER THE INJECTION. INSTRUCTIONS WERE GIVEN, QUESTIONS WERE ANSWERED, PATIENT REPORTS UNDERSTANDING AND AGREES WITH THE PLAN. I, JUN WHITE, DOCUMENTED THE ABOVE INFORMATION ACTING A SCRIBE FOR DR. MORA. I HAVE REVIEWED THE ABOVE DOCUMENT, WRITTEN BY JUN HOLLY AND I VERIFY THAT IT IS ACCURATE. . OTHERS NOTES: OPTIONS: TRIGGER POINT INJECTION MATERIAL WAS PRINTED. PREVENTIVE MEDICINE PAIN CLINIC TEACHING: PROCEDURE TEACHING PRINTED AND REVIEWED INFORMATION ON TRIGGER POINT INJECTION PROCEDURE WITH PATIENT. ALSO REVIEWED PRE-PROCEDURE INSTRUCTIONS. PATIENT VERBALIZED AN UNDERSTANDING. MARKUS GRANGER 10/06/2018 2:48:44 PM > . PROCEDURE CODES FA211 ESTABILISHED PATIENT MERGED WITH [facility] CHARGE G8427 CURRENT MEDS W/DOSAGES DOCUMENTED G8730 PAIN ASSESS POS TOOL F/U PLAN DOC DISPOSITION & COMMUNICATION FOLLOW UP 3 WEEKS (REASON: TPI) ELECTRONICALLY SIGNED BY CYNTHIA MORA MD, ON 10/15/2018 AT 08:10 PM EDT DISCLAIMER : THIS IS A VISIT SUMMARY EXTRACTED FROM THE [employer] CHART. IT IS NOT A COPY OF THE [employer] PROGRESS NOTE. TABBY
== END ==
LOC: M PAIN 12:45
PROVIDERS: ATTEND Anesthesiology
DX: M79.18 Myalgia, other site (principal); M54.5 Low back pain; M25.551 Pain in right hip; E03.9 Hypothyroidism, unspecified; H91.93 Unspecified hearing loss, bilateral; F17.210 Nicotine dependence, cigarettes, uncomplicated; Z79.899 Other long term (current) drug therapy

== ENCOUNTER → 2018-11-15 | Outpatient (CLI) | payer MEDICARE, MEDICAID ==
[~2018-11-15] MED LIST changes: +BUPIVACAINE HCL 0.25% 10 ML VIAL As Ordered ONE; +BUPIVACAINE HCL 0.25% 30 ML VIAL As Ordered ONE; +TRIAMCINOLONE ACETONIDE SUSP 40 MG/ML VIAL (J3301) As Ordered ONE; +diazePAM 5 MG TAB As Ordered ONE; +diphenhydrAMINE 25 MG CAP As Ordered ONE
--- NOTE | 2018-11-30 00:45 | ECWPNPC ---
PATIENT NAME: YUSEF TAO : 1975 GENDER: FEMALE VISIT DATE: 11/15/2018 DISCHARGE DATE: 11/15/18 1643 VISIT LOCKED DATE TIME: PHYSICIAN: CYNTHIA MORA MD RESOURCE: CYNTHIA MORA MD REASON FOR APPOINTMENT 1. TPI BACK HISTORY OF PRESENT ILLNESS HISTORY OF PRESENT ILLNESS: PAIN THE PATIENT DESCRIBES THE PAIN... FALL RISK SCREENING: SCREENING :NO FALLS REPORTED IN THE LAST YEAR CURRENT MEDICATIONS TAKING PANTOPRAZOLE SODIUM 40 MG TABLET DELAYED RELEASE 1 TABLET ORALLY ONCE A DAY, NOTES: 11/14/18 TAKING ADAPALENE 0.1 % GEL PEA SIZED AMOUNT EXTERNALLY TO FACE NEEDED, NOTES: NONE RECENT TAKING [id number] 3.5-34057-9.1 SUSPENSION APPLY ONE DROP INTO BOTH EYES FOUR TIMES A DAY DIRECTED OPHTHALMIC NEEDED, NOTES: 2 DAYS AGO TAKING SPIRONOLACTONE 25 MG TABLET 2 TABLETS ORALLY ONCE A DAY, NOTES: 11/14/18 TAKING LEVOTHYROXINE SODIUM 100 MCG TABLET 1 TABLET ON AN EMPTY STOMACH IN THE MORNING ORALLY ONCE A DAY, NOTES: 11/15/18 1000 TAKING TYLENOL EXTRA STRENGTH 500 MG TABLET 1 TABLET NEEDED ORALLY EVERY 6 HRS, NOTES: 2 DAYS AGO TAKING DOCUSATE SODIUM 250 MG CAPSULE 1 CAPSULE NEEDED ORALLY ONCE A DAY, NOTES: 11/14/18 NOT-TAKING MELOXICAM 7.5 MG TABLET 1 TABLET ORALLY ONCE A DAY NOT-TAKING DOXYCYCLINE HYCLATE 100 MG CAPSULE 1 CAPSULE ORALLY TWICE A DAY FOR ACNE MEDICATION LIST REVIEWED AND RECONCILED WITH THE PATIENT PAST MEDICAL HISTORY HYPOTHYROIDISM (2000) LOW BACK PAIN 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 SURGICAL HISTORY LEFT FOOT SURGERY 1996? HYSTERECTOMY- PARTIAL 11/20/14 COLONOSCOPY 02/10/2018 FAMILY HISTORY FATHER: ALIVE, CANCER, SKIN, CANCER, PROSTATE MOTHER: ALIVE, DIABETES SIBLINGS: ALIVE, KIDNEY DISEASE (SISTER) PATERNAL GRAND FATHER: , [place] PATERNAL GRAND MOTHER: ALIVE, CORONARY ARTERY DISEASE MATERNAL GRAND FATHER: , [place] MATERNAL GRAND MOTHER: , STROKE 1 BROTHER(S) , 1 SISTER(S) . SOCIAL HISTORY GENERAL: TOBACCO USE ARE YOU A:CURRENT SMOKER HOW OFTEN DO YOU SMOKE CIGARETTES?EVERY DAY HOW MANY CIGARETTES A DAY DO YOU SMOKE?6-10 ARE YOU INTERESTED IN QUITTING?THINKING ABOUT QUITTING PATIENT COUNSELED ON THE DANGERS OF TOBACCO USE AND URGED TO QUIT:10/04/2018 SMOKING CESSATION INFORMATION GIVEN10/04/2018 HIV / HEP-C SCREENING HIV TEST OFFERED TO PATIENT:YES DATE OFFERED:09/29/2017 TEST ACCEPTED:NO HEP-C TEST OFFERED TO PATIENT:YES DATE OFFERED:09/29/2017 REASON:PATIENT DECLINED TEST ACCEPTED:NO REASON:PATIENT DECLINED BROCHURE PROVIDED TO PATIENTNO OTHERS AT HOME: IV'S TO RIGHT ARM ONLY, PT HAS CREST SYNDROME. EDUCATION LEVEL OF EDUCATION:FINISHED HIGH SCHOOL DIET: REGULAR. LANGUAGE LANGUAGES SPOKEN:OTHER SIGN DOMESTIC VIOLENCE DO YOU FEEL SAFE IN YOUR ENVIRONMENT?YES BMI CARE GOAL FOLLOW-UP ABOVE NORMAL BMI FOLLOW-UPDIETARY MANAGEMENT EDUCATION, GUIDANCE, AND COUNSELING, DIETARY NEEDS EDUCATION RECREATIONAL DRUG USE DRUG USE?NO EXERCISE: NO REGULAR EXERCISE. 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 :CORRECTIVE LENSES READINESS TO LEARN?YES LEARNING PREFERENCES?NO LEARNING CAPABILITIES PRESENT?YES EMOTIONAL BARRIERS?NO SPECIAL DEVICES?NO ELEMENTARY TEACHER NEEDED?YES LUNG CANCER SCREENING SMOKING STATUS:CURRENT SMOKER IS THE PATIENT BETWEEN THE AGE OF 53 AND 75?NO PAIN CLINIC PFS, CLERGY, PUBLIC HEALTH REFERRALS HAS THE PATIENT BEEN EDUCATED REGARDING HIS/HER PLAN OF CARE?YES HAS THE PATIENT BEEN EDUCATED REGARDING PAIN, THE RISK FOR PAIN, THE IMPORTANCE OF EFFECTIVE PAIN MANAGEMENT, AND THE PAIN ASSESSMENT PROCESS?YES LATEX QUESTIONNAIRE LATEX ALLERGY : HAVE YOU EVER DEVELOPED ANY TYPE OF REACTION AFTER HANDLING LATEX PRODUCTS SUCH RUBBER GLOVES, CONDOMS, DIAPHRAGMS, BALLOONS, SOCKS, OR UNDERWEAR?NO LATEX ALLERGY : HAVE YOU EVER DEVELOPED ANY TYPE OF REACTION DURING OR AFTER DENTAL APPOINTMENT, VAGINAL/RECTAL EXAMINATION, SURGICAL PROCEDURE, OR ANY OTHER EXPOSURE?NO DATE ASKED : 07/03/2018 LATEX RISK : HAVE YOU EVER HAD ANY DIFFICULTY BREATHING OR HIVES AFTER EATING OR HANDLING ANY FRUITS, OR VEGETABLES; SUCH KIWI, BANANAS, STONE FRUITS, OR CHESTNUTSNO LATEX RISK : DO YOU HAVE A PREVIOUS PERSONAL HISTORY OF MORE THAN NINE SURGERIES, SPINA BIFIDA, OR REPEATED CATHERIZATIONS? NO LATEX RISK : ARE YOU FREQUENTLY EXPOSED TO LATEX PRODUCTS IN YOUR OCCUPATION?NO CAFFEINE CAFFEINE USE?YES HOW OFTEN AND HOW MUCH? COFFEE, TEA ADVANCE DIRECTIVE ADVANCE DIRECTIVE DISCUSSED WITH PATIENT:YES PT HAS HCP FORM AT HOME AND IS THINKING ABOUT IT. DECLINES ASSISTANCE WITH FORM TODAY 11/15/18 JEHOVAH'S WITNESS [id number] NONE MARITAL STATUS: SINGLE. OCCUPATION: UNEMPLOYED. SEXUAL HX HAD SEX IN THE LAST 12 MONTHS (VAGINAL, ORAL, OR ANAL)?NO LMP:2014 HAVE YOU EVER HAD AN STD?NO REVIEWED WITH PT 10/06/18 1318 BVREVIEWED WITH PT 11/15/18 1412 BV. HOSPITALIZATION/MAJOR DIAGNOSTIC PROCEDURE SURGERY REVIEW OF SYSTEMS REVIEWED BY: PROVIDER: . CONSTITUTIONAL: ANY CHANGE IN YOUR MEDICAL CONDITION? NO . CHILLS NO . FEVER NO . INFECTION: DO YOU HAVE NEW INFECTIONS? NO . DO YOU HAVE HISTORY OF MRSA? NO . MUSCULOSKELETAL: ANY NEW PATTERNS OF PAIN OR NUMBNESS? NO . GASTROENTEROLOGY: ANY NEW CHANGE IN BOWEL CONTROL? NO . GENITOURINARY: ANY NEW CHANGE IN BLADDER CONTROL? NO . IS THERE A CHANCE YOU COULD BE ? NO . HEMATOLOGY/LYMPH: DO YOU TAKE ANY BLOOD THINNERS? (FOR EXAMPLE- COUMADIN, PLAVIX, AGGRENOX, PLATEL, PRADAXA, OR XARELTO) NO . WHEN WAS YOUR LAST DOSE? DATE: TIME: . NEUROLOGY: HAVE YOU FALLEN IN THE PAST 12 MONTHS? NO . ANY NEW EXTREMITY NUMBNESS OR WEAKNESS? NO . CARDIOLOGY: DO YOU HAVE A PACEMAKER OR DEFIBRILLATOR? NO . RESPIRATORY: HAVE YOU BEEN SICK IN THE PAST WEEK? NO . FEVER NO . FLU LIKE SYMPTOMS? NO . COUGH NO . INTEGUMENTARY: DO YOU HAVE ANY RASHES OR OPEN SORES? NO . ALLERGIC/IMMUNO: ARE YOU ALLERGIC TO IV DYE? NO . ANY NEW ALLERGIES? NO . PSYCHIATRIC: DO YOU HAVE THOUGHTS OF HURTING YOURSELF OR SOMEONE ELSE? NO . ARE YOU ABUSED, NEGLECTED, OR IN AN UNSAFE ENVIRONMENT? NO . ENDOCRINOLOGY: ARE YOU DIABETIC? NO . OTHER: DO YOU NEED ANY PRESCRIPTIONS? NO . IF YES, PLEASE LIST: ____ . ANY NEW PROBLEMS WITH YOUR MEDICATIONS? NO . WHEN DID YOU LAST EAT? 11/14/18 1930 . WHEN DID YOU LAST DRINK? 11/15/18 1000 . WHAT DID YOU LAST DRINK? WATER . NAME OF PERSON DRIVING YOU HOME? YAYA-[address] BUILDER . DO YOU HAVE ANY OTHER QUESTIONS OR CONCERNS NO . VITAL SIGNS WT 154 LBS, HT 64.75 IN, BMI 25.82 INDEX, BP 107/71 MM HG, HR 86 /MIN, RR 17 /MIN, TEMP 98.0 F, OXYGEN SAT % 98%, NA INITIALS SC 14:00, REVIEWED BY: BV. ASSESSMENTS MYALGIA, OTHER SITE - M79.18 (PRIMARY) PROCEDURES PN TRIGGER POINT INJECTION WITH STEROIDS PRE PROCEDURE DIAGNOSIS 1. MYALGIA 2. PAIN AT BILATERAL THORACIC AREA AND BILATERAL LOW BACK AREA POST PROCEDURE DIAGNOSIS 1. MYALGIA 2. PAIN AT BILATERAL THORACIC AREA AND BILATERAL LOW BACK AREA PROCEDURE TRIGGER POINT INJECTION AT BILATERAL THORACIC AREA AND BILATERAL LOW BACK AREA SURGEON DR. CYNTHIA MORA LEAD ADVISOR NONE ANESTHESIA LOCAL PRE PROCEDURE NOTE THE PATIENT HAS A HISTORY OF CHRONIC PAIN AT THE RIGHT AND LEFT THORACIC AREA AND RIGHT AND LEFT LOW BACK AREA. I EVALUATE THE PATIENT AND REVIEWED THE CHART. THERE IS EVIDENCE OF BANDS OF TISSUE WITH RESTRICTION OF MOVEMENT AND PRESENCE OF TRIGGER POINT AT THE AFFECTED AREA. I WENT OVER THE RISKS, ALTERNATIVES, AND BENEFITS ASSOCIATED WITH THIS PROCEDURE. THE PATIENT WOULD LIKE TO PROCEED AND GIVE CONSENT TO PERFORMED THE PROCEDURE. THE PATIENT DENIES UNEXPLAINABLE WEIGHT LOSS, FEVER, CHILLS, OR NEW CHANGES IN URINARY OR BOWEL CONTROL DESCRIPTION OF PROCEDURE THE PATIENT WAS BROUGHT TO THE PROCEDURE ROOM AND PLACED IN THE SITTING POSITION. THE AREA WAS CLEANED WITH ALCOHOL. THE PROCEDURE WAS DONE USING ASEPTIC STERILE TECHNIQUE. I CHECKED LATERALITY AND THE LEVEL WHERE THE PROCEDURE WAS GOING TO BE PERFORMED WITH THE PATIENT AND THE SUPPORTING STAFF AT THE MOMENT OF THE TIME OUT IN THE PROCEDURE ROOM. USING A 25-GAUGE NEEDLE, TRIGGER POINTS WERE INJECTED AT THE RIGHT AND LEFT THORACIC AREA AND RIGHT AND LEFT LOW BACK AREA WITH A TOTAL OF 40 ML OF BUPIVACAINE 0.25% AND KENALOG 40 MG. THERE WAS NO EVIDENCE OF BLOOD, PARESTHESIA OR CEREBROSPINAL FLUID DURING THE PROCEDURE. THE PATIENT WAS SENT TO THE RECOVERY ROOM. THE PATIENT WAS MOVING THE EXTREMITIES AND DOING WELL. THERE WAS NO COMPLICATION DURING THE PROCEDURE POST PROCEDURE NOTE THE PATIENT WILL BE SEEN IN A FOLLOW UP IN THE NEXT FEW WEEKS. INSTRUCTIONS WERE GIVEN, QUESTIONS WERE ANSWERED, AND THE PATIENT EXPRESSED UNDERSTANDING AND AGREES WITH THE PLAN. I, WENDY JIN, DOCUMENTED THE ABOVE INFORMATION ACTING A SCRIBE FOR DR. MORA. I HAVE REVIEWED THE ABOVE DOCUMENT, WRITTEN BY WENDY HOLLY AND I VERIFY THAT IT IS ACCURATE. PROCEDURE CODES 14178 INJECT TRIGGER POINTS 3/> DISPOSITION & COMMUNICATION FOLLOW UP 3 WEEKS ELECTRONICALLY SIGNED BY CYNTHIA MORA MD, MD ON 11/29/2018 AT 11:57 AM EDT DISCLAIMER : THIS IS A VISIT SUMMARY EXTRACTED FROM THE [employer] CHART. IT IS NOT A COPY OF THE [employer] PROGRESS NOTE. TABBY
== END ==
LOC: M PAIN 13:45
PROVIDERS: ATTEND Anesthesiology
DX: M79.18 Myalgia, other site (principal); M54.5 Low back pain; M54.6 Pain in thoracic spine; E03.9 Hypothyroidism, unspecified; M34.1 CR(E)ST syndrome; F17.210 Nicotine dependence, cigarettes, uncomplicated; Z79.899 Other long term (current) drug therapy
CPT/HCPCS: 20553; J3301

== ENCOUNTER → 2018-12-06 | Outpatient (CLI) | payer MEDICARE, MEDICAID ==
[~2018-12-06] MED LIST changes: -BUPIVACAINE HCL 0.25% 10 ML VIAL As Ordered ONE; -BUPIVACAINE HCL 0.25% 30 ML VIAL As Ordered ONE; -TRIAMCINOLONE ACETONIDE SUSP 40 MG/ML VIAL (J3301) As Ordered ONE; -diazePAM 5 MG TAB As Ordered ONE; -diphenhydrAMINE 25 MG CAP As Ordered ONE
--- NOTE | 2018-12-08 00:11 | ECWPNPC ---
PATIENT NAME: YUSEF TAO : 1975 GENDER: FEMALE VISIT DATE: 12/06/2018 DISCHARGE DATE: 12/06/18 1238 VISIT LOCKED DATE TIME: PHYSICIAN: CL FORTE RESOURCE: CL FORTE REASON FOR APPOINTMENT 1. POST PROC CHECKING IN NOW HISTORY OF PRESENT ILLNESS HISTORY OF PRESENT ILLNESS: PAIN THE PATIENT DESCRIBES THE PAIN... 42 YEAR OLD FEMALE IN FOR POST TPI FOLLOW UP. SHE FEELS THE PROCEDURE WORKED WELL ON HER LOWER BACK BUT NOT IN HER THORACIC AREA. SHE RATES HER PAIN AT A 3/10 FOR HER LOW BACK AND AN 8/10 FOR HER THORACIC. SHE DESCRIBES HER PAIN SHARP AND ACHING. FALL RISK SCREENING: SCREENING :NO FALLS REPORTED IN THE LAST YEAR CURRENT MEDICATIONS TAKING PANTOPRAZOLE SODIUM 40 MG TABLET DELAYED RELEASE 1 TABLET ORALLY ONCE A DAY TAKING ADAPALENE 0.1 % GEL PEA SIZED AMOUNT EXTERNALLY TO FACE NEEDED, NOTES: NONE RECENT TAKING [id number] SUSPENSION APPLY ONE DROP INTO BOTH EYES FOUR TIMES A DAY DIRECTED OPHTHALMIC NEEDED TAKING SPIRONOLACTONE 25 MG TABLET 2 TABLETS ORALLY ONCE A DAY TAKING LEVOTHYROXINE SODIUM 100 MCG TABLET 1 TABLET ON AN EMPTY STOMACH IN THE MORNING ORALLY ONCE A DAY TAKING TYLENOL EXTRA STRENGTH 500 MG TABLET 1 TABLET NEEDED ORALLY EVERY 6 HRS TAKING DOCUSATE SODIUM 250 MG CAPSULE 1 CAPSULE NEEDED ORALLY ONCE A DAY NOT-TAKING MELOXICAM 7.5 MG TABLET 1 TABLET ORALLY ONCE A DAY NOT-TAKING DOXYCYCLINE HYCLATE 100 MG CAPSULE 1 CAPSULE ORALLY TWICE A DAY FOR ACNE MEDICATION LIST REVIEWED AND RECONCILED WITH THE PATIENT PAST MEDICAL HISTORY HYPOTHYROIDISM (2000) LOW BACK PAIN 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 RICO FOR GASTRO ISSUES ALLERGIES N.K.D.A. SURGICAL HISTORY LEFT FOOT SURGERY 1996? HYSTERECTOMY- PARTIAL 11/20/14 COLONOSCOPY 02/10/2018 FAMILY HISTORY FATHER: ALIVE, CANCER, SKIN, CANCER, PROSTATE MOTHER: ALIVE, DIABETES SIBLINGS: ALIVE, KIDNEY DISEASE (SISTER) PATERNAL GRAND FATHER: , [place] PATERNAL GRAND MOTHER: ALIVE, CORONARY ARTERY DISEASE MATERNAL GRAND FATHER: , [place] MATERNAL GRAND MOTHER: , STROKE 1 BROTHER(S) , 1 SISTER(S) . NEPHEW HAS CANCER- RECENT DIAGONSED. SOCIAL HISTORY GENERAL: TOBACCO USE ARE YOU A:CURRENT SMOKER ARE YOU INTERESTED IN QUITTING?THINKING ABOUT QUITTING HOW MANY CIGARETTES A DAY DO YOU SMOKE?6-10 HOW OFTEN DO YOU SMOKE CIGARETTES?EVERY DAY PATIENT COUNSELED ON THE DANGERS OF TOBACCO USE AND URGED TO QUIT:10/04/2018 SMOKING CESSATION INFORMATION GIVEN12/06/2018 HIV / HEP-C SCREENING HIV TEST OFFERED TO PATIENT:YES DATE OFFERED:09/29/2017 TEST ACCEPTED:NO HEP-C TEST OFFERED TO PATIENT:YES DATE OFFERED:09/29/2017 REASON:PATIENT DECLINED TEST ACCEPTED:NO REASON:PATIENT DECLINED BROCHURE PROVIDED TO PATIENTNO OTHERS AT HOME: IV'S TO RIGHT ARM ONLY, PT HAS CREST SYNDROME. EDUCATION LEVEL OF EDUCATION:FINISHED HIGH SCHOOL DIET: REGULAR. LANGUAGE LANGUAGES SPOKEN:OTHER SIGN DOMESTIC VIOLENCE DO YOU FEEL SAFE IN YOUR ENVIRONMENT?YES BMI CARE GOAL FOLLOW-UP ABOVE NORMAL BMI FOLLOW-UPDIETARY MANAGEMENT EDUCATION, GUIDANCE, AND COUNSELING, DIETARY NEEDS EDUCATION RECREATIONAL DRUG USE DRUG USE?NO EXERCISE: NO REGULAR EXERCISE. 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 :CORRECTIVE LENSES READINESS TO LEARN?YES LEARNING PREFERENCES?NO LEARNING CAPABILITIES PRESENT?YES EMOTIONAL BARRIERS?NO SPECIAL DEVICES?NO MASSAGE COORDINATOR NEEDED?YES LUNG CANCER SCREENING SMOKING STATUS:CURRENT SMOKER IS THE PATIENT BETWEEN THE AGE OF 55 AND 77?NO PAIN CLINIC PFS, CLERGY, PUBLIC HEALTH REFERRALS HAS THE PATIENT BEEN EDUCATED REGARDING HIS/HER PLAN OF CARE?YES HAS THE PATIENT BEEN EDUCATED REGARDING PAIN, THE RISK FOR PAIN, THE IMPORTANCE OF EFFECTIVE PAIN MANAGEMENT, AND THE PAIN ASSESSMENT PROCESS?YES LATEX QUESTIONNAIRE LATEX ALLERGY : HAVE YOU EVER DEVELOPED ANY TYPE OF REACTION AFTER HANDLING LATEX PRODUCTS SUCH RUBBER GLOVES, CONDOMS, DIAPHRAGMS, BALLOONS, SOCKS, OR UNDERWEAR?NO LATEX ALLERGY : HAVE YOU EVER DEVELOPED ANY TYPE OF REACTION DURING OR AFTER DENTAL APPOINTMENT, VAGINAL/RECTAL EXAMINATION, SURGICAL PROCEDURE, OR ANY OTHER EXPOSURE?NO DATE ASKED : 07/03/2018 LATEX RISK : HAVE YOU EVER HAD ANY DIFFICULTY BREATHING OR HIVES AFTER EATING OR HANDLING ANY FRUITS, OR VEGETABLES; SUCH KIWI, BANANAS, STONE FRUITS, OR CHESTNUTSNO LATEX RISK : DO YOU HAVE A PREVIOUS PERSONAL HISTORY OF MORE THAN NINE SURGERIES, SPINA BIFIDA, OR REPEATED CATHERIZATIONS? NO LATEX RISK : ARE YOU FREQUENTLY EXPOSED TO LATEX PRODUCTS IN YOUR OCCUPATION?NO CAFFEINE CAFFEINE USE?YES HOW OFTEN AND HOW MUCH? COFFEE, TEA ADVANCE DIRECTIVE ADVANCE DIRECTIVE DISCUSSED WITH PATIENT:YES PT HAS HCP FORM AT HOME AND IS THINKING ABOUT IT. DECLINES ASSISTANCE WITH FORM TODAY 11/15/18 DRUZE [id number] NONE MARITAL STATUS: SINGLE. OCCUPATION: UNEMPLOYED. SEXUAL HX HAD SEX IN THE LAST 12 MONTHS (VAGINAL, ORAL, OR ANAL)?NO LMP:2014 HAVE YOU EVER HAD AN STD?NO REVIEWED WITH PT 10/06/18 1318 BVREVIEWED WITH PT 11/15/18 1412 BVREVIEWED WITH PATIENT 12/06/18 NLJ. HOSPITALIZATION/MAJOR DIAGNOSTIC PROCEDURE SURGERY REVIEW OF SYSTEMS REVIEWED BY: PROVIDER: SONIA FLETCHER . CONSTITUTIONAL: ANY CHANGE IN YOUR MEDICAL CONDITION? NO . CHILLS NO . FEVER NO . INFECTION: DO YOU HAVE NEW INFECTIONS? NO . DO YOU HAVE HISTORY OF MRSA? NO . MUSCULOSKELETAL: ANY NEW PATTERNS OF PAIN OR NUMBNESS? NO- STATES PAIN IS BETTER IN LOWER BACK, HAS HAD ISSUES IN THORACIC AREA, TROUBLE SLEEPING AT NIGHT, COUGHING. STATES SHE IS SEEING DR. RICO FOR CARE AND IS GOING TO HAVING AN ENDOSCOPY . GASTROENTEROLOGY: ANY NEW CHANGE IN BOWEL CONTROL? NO . GENITOURINARY: ANY NEW CHANGE IN BLADDER CONTROL? NO . IS THERE A CHANCE YOU COULD BE ? NO . HEMATOLOGY/LYMPH: DO YOU TAKE ANY BLOOD THINNERS? (FOR EXAMPLE- COUMADIN, PLAVIX, AGGRENOX, PLATEL, PRADAXA, OR XARELTO) NO . WHEN WAS YOUR LAST DOSE? DATE: TIME: . NEUROLOGY: HAVE YOU FALLEN IN THE PAST 12 MONTHS? NO . ANY NEW EXTREMITY NUMBNESS OR WEAKNESS? NO . CARDIOLOGY: DO YOU HAVE A PACEMAKER OR DEFIBRILLATOR? NO . RESPIRATORY: HAVE YOU BEEN SICK IN THE PAST WEEK? NO . FEVER NO . FLU LIKE SYMPTOMS? NO . COUGH YES- PATIENT STATES SHE HAS BEEN COUGHING AND HAS OCCASIONAL TROUBLE BREATHING, STATES SHE HAS BEEN SEEING DR. RICO FOR CARE . INTEGUMENTARY: DO YOU HAVE ANY RASHES OR OPEN SORES? NO . ALLERGIC/IMMUNO: ARE YOU ALLERGIC TO IV DYE? NO . ANY NEW ALLERGIES? NO . PSYCHIATRIC: DO YOU HAVE THOUGHTS OF HURTING YOURSELF OR SOMEONE ELSE? NO . ARE YOU ABUSED, NEGLECTED, OR IN AN UNSAFE ENVIRONMENT? NO . ENDOCRINOLOGY: ARE YOU DIABETIC? NO . OTHER: DO YOU NEED ANY PRESCRIPTIONS? NO . IF YES, PLEASE LIST: ____ . ANY NEW PROBLEMS WITH YOUR MEDICATIONS? NO . WHEN DID YOU LAST EAT? ____ . WHEN DID YOU LAST DRINK? ____ . WHAT DID YOU LAST DRINK? ____ . NAME OF PERSON DRIVING YOU HOME? ____ . DO YOU HAVE ANY OTHER QUESTIONS OR CONCERNS NO . VITAL SIGNS WT 154 LBS, HT 64.75 IN, BMI 25.82 INDEX, BP 135/73 MM HG, HR 60 /MIN, RR 18 /MIN, TEMP 97.3 F, OXYGEN SAT % 94%, SAFE IN ENV? (Y/N) YES, NA INITIALS AW 1141, REVIEWED BY: [email or web address]. EXAMINATION GENERAL EXAMINATION: GENERALNO ACUTE DISTRESS, WELL NOURISHED AND HYDRATED. PSYCHAPPROPRIATE MOOD AND AFFECT . ASSESSMENTS MYALGIA, OTHER SITE - M79.18 (PRIMARY) TREATMENT MYALGIA, OTHER SITE CLINICAL NOTES: 42 YEAR OLD FEMALE IN FOR POST TPI FOLLOW UP. SHE ADMITS TO UPCOMING TEST FOR SOME TROUBLE SWALLOWING AND BREATHING ISSUES. GIVEN PRESENTING SYMPTOMS AND RESULTS OF PHYSICAL EXAMINATION RECOMMENDED WAITING TO REPEAT THORACIC TPI UNTIL WE HAVE THE RESULTS OF HER UPCOMING STUDIES WITH FOLLOW UP IN 2 MONTHS. PATIENT HAS EXPRESSED UNDERSTANDING OF AND WAS IN AGREEMENT WITH TREATMENT PLAN. GIVEN TIME TO ASK QUESTIONS AND EXPRESS CONCERNS. PROCEDURE CODES FA211 ESTABILISHED PATIENT [facility] FACILITY CHARGE DISPOSITION & COMMUNICATION FOLLOW UP 2 MONTHS (REASON: CHRONIC PAIN ) ELECTRONICALLY SIGNED BY DERREK MELLO ON 12/07/2018 AT 08:58 AM EDT DISCLAIMER : THIS IS A VISIT SUMMARY EXTRACTED FROM THE [employer] CHART. IT IS NOT A COPY OF THE [employer] PROGRESS NOTE. MTDD
== END ==
LOC: M PAIN 11:15
PROVIDERS: ATTEND Family Medicine
DX: M79.18 Myalgia, other site (principal); E03.9 Hypothyroidism, unspecified; F17.210 Nicotine dependence, cigarettes, uncomplicated; Z79.899 Other long term (current) drug therapy

== ENCOUNTER 2018-12-25 06:49 | Day surgery (SDC) | payer MEDICARE, MEDICAID ==
[~2018-12-25] VITALS: Ht 167.6 cm; Wt 71.2 kg
[~2018-12-25 06:49] MED LIST changes: +ALDA50TA2 PO; +CVS50CAP PO; +NS 1,000 ML IV ONE; +REFR0.5D8 OP; +[UNRECOGNIZED DRUG - CODE] TOP
[2018-12-25] MEDS ORDERED: PROPOFOL 200 MG/20 ML VIAL As Ordered ONE (07:11)
[2018-12-25] MEDS ORDERED: LIDOCAINE 2% INJ 100 MG/5 ML SDV (FOR ANES.) As Ordered ONE (07:12)
[2018-12-25] MEDS ORDERED: fentaNYL 100 MCG/2 ML INJECTION (J3010) As Ordered ONE (07:12)
--- NOTE | 2018-12-25 07:53 | ROOR ---
Patient Name: Daisha Mercado Procedure Date: 12/25/2018 7:33 AM Date of : 1975 Age: 43 Room: [facility] Gender: Female Note Status: Finalized Procedure: Upper GI endoscopy Indications: Epigastric abdominal pain, Heartburn Providers: Roberto Carlos TOBIAS MD Referring MD: Twan RAMIREZ MD Requesting Provider: Medicines: Monitored Anesthesia Care Complications: No immediate complications. Procedure: Pre-Anesthesia Assessment: - The heart rate, respiratory rate, oxygen saturations, blood pressure, adequacy of pulmonary ventilation, and response to care were monitored throughout the procedure. The Endoscope was introduced through the mouth, and advanced to the second part of duodenum. The upper GI endoscopy was performed with difficulty due to presence of food. The patient tolerated the procedure well. Findings: The examined esophagus was normal. A large amount of food (residue) was found in the cardia and in the gastric body. The examined duodenum was normal. Impression: - Normal esophagus. - A large amount of food (residue) in the stomach c/w Gastroparesis (This precludes visualisation of the stomach).- - Normal examined duodenum. - No specimens collected. Recommendation: - Repeat upper endoscopy at the next available appointment because the preparation was poor. - Gastroparesis diet: - Eat smaller, more frequent meals throughout the day. - Low fat diet. - Liquid/soft foods are tolerated better than solid foods. - Low fiber/well cooked vegetables are tolerated better than high fiber/fibrous foods/raw vegetables. - Avoid medications that inhibit gastric/intestinal motility such as narcotic medications. - My office will call you in the next few days to set you up for a repeat exam. Roberto Carlos Tobias MD Roberto Carlos TOBIAS MD 12/25/2018 7:52:22 AM Electronically signed by Roberto Carlos TOBIAS MD Number of Addenda: 0 Note Initiated On: 12/25/2018 7:33 AM Estimated Blood Loss: Estimated blood loss: none.
[2018-12-25 08:40] VITALS: BP 107/67
== END 2018-12-25 12:02 | disposition home or self-care (01) ==
LOC: M OPP 06:49
PROVIDERS: ATTEND Internal Medicine Gastroenterology
DX: R10.13 Epigastric pain (principal); K21.9 Gastro-esophageal reflux disease without esophagitis; Z79.899 Other long term (current) drug therapy; F17.210 Nicotine dependence, cigarettes, uncomplicated
CPT/HCPCS: 43235; J3010

== ENCOUNTER → 2019-02-05 | Outpatient (CLI) | payer MEDICARE, MEDICAID ==
[~2019-02-05] MED LIST changes: -NS 1,000 ML IV ONE
--- NOTE | 2019-02-07 01:32 | ECWPNPC ---
PATIENT NAME: YUSEF TAO : 1975 GENDER: FEMALE VISIT DATE: 02/05/2019 DISCHARGE DATE: 02/05/19 1441 VISIT LOCKED DATE TIME: PHYSICIAN: CL FORTE RESOURCE: CL FORTE REASON FOR APPOINTMENT 1. 2 MOS HISTORY OF PRESENT ILLNESS HISTORY OF PRESENT ILLNESS: PAIN THE PATIENT DESCRIBES THE PAIN... 43-YEAR-OLD FEMALE IN FOR CHRONIC PAIN FOLLOW-UP. SHE HAS YET TO HAVE THE GASTROPARESIS STUDY DONE BUT DOES ADMIT THAT THE STUDY IS SCHEDULED FOR FEBRUARY 16. SHE RATES HER PAIN CURRENTLY AT AN 8 OUT OF 10 AND DESCRIBES IT SORE, ACHING, AND SHARP. FALL RISK SCREENING: SCREENING :NO FALLS REPORTED IN THE LAST YEAR CURRENT MEDICATIONS TAKING [id number] SUSPENSION APPLY ONE DROP INTO BOTH EYES FOUR TIMES A DAY DIRECTED OPHTHALMIC NEEDED TAKING TYLENOL EXTRA STRENGTH 500 MG TABLET 1 TABLET NEEDED ORALLY EVERY 6 HRS TAKING DOCUSATE SODIUM 250 MG CAPSULE 1 CAPSULE NEEDED ORALLY ONCE A DAY TAKING SPIRONOLACTONE 50 MG TABLET 2 TABLETS ORALLY ONCE A DAY TAKING TRETINOIN 0.05 % CREAM 1 APPLICATION TO AFFECTED AREA IN THE EVENING TO FACE EXTERNALLY ONCE A DAY IN EVENING TO WHOLE FACE AFTER WASHING TAKING LEVOTHYROXINE SODIUM 100 MCG TABLET 1 TABLET ON AN EMPTY STOMACH IN THE MORNING ORALLY ONCE A DAY TAKING PANTOPRAZOLE SODIUM 40 MG TABLET DELAYED RELEASE 1 TABLET ORALLY ONCE A DAY NOT-TAKING MELOXICAM 7.5 MG TABLET 1 TABLET ORALLY ONCE A DAY NOT-TAKING DOXYCYCLINE HYCLATE 100 MG CAPSULE 1 CAPSULE ORALLY TWICE A DAY FOR ACNE MEDICATION LIST REVIEWED AND RECONCILED WITH THE PATIENT PAST MEDICAL HISTORY HYPOTHYROIDISM (2000) LOW BACK PAIN 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 RICO FOR GASTRO ISSUES ALLERGIES N.K.D.A. SURGICAL HISTORY LEFT FOOT SURGERY 1996? HYSTERECTOMY- PARTIAL 11/20/14 COLONOSCOPY 02/10/2018 FAMILY HISTORY FATHER: ALIVE, CANCER, SKIN, CANCER, PROSTATE MOTHER: ALIVE, DIABETES SIBLINGS: ALIVE, KIDNEY DISEASE (SISTER) PATERNAL GRAND FATHER: , [place] PATERNAL GRAND MOTHER: ALIVE, CORONARY ARTERY DISEASE MATERNAL GRAND FATHER: , [place] MATERNAL GRAND MOTHER: , STROKE 1 BROTHER(S) , 1 SISTER(S) . NEPHEW HAS CANCER- RECENT DIAGONSED FATHER HAD SKIN CANCER, UNSURE WHAT TYPE. AUNT ON MATERNAL SIDE HAD BREAST CANCER.DENIES FAMILY HX OF PANCREATIC CANCER. SOCIAL HISTORY GENERAL: TOBACCO USE ARE YOU A:CURRENT SMOKER ARE YOU INTERESTED IN QUITTING?THINKING ABOUT QUITTING COUNSELED THE PATIENT ON SMOKING CESSATION, EDUCATION [id number]/21/2019 HOW MANY CIGARETTES A DAY DO YOU SMOKE?6-10 HOW OFTEN DO YOU SMOKE CIGARETTES?EVERY DAY PATIENT COUNSELED ON THE DANGERS OF TOBACCO USE AND URGED TO QUIT:10/04/2018 SMOKING CESSATION INFORMATION GIVEN12/06/2018 HIV / HEP-C SCREENING HIV TEST OFFERED TO PATIENT:YES DATE OFFERED:09/29/2017 TEST ACCEPTED:NO HEP-C TEST OFFERED TO PATIENT:YES DATE OFFERED:09/29/2017 REASON:PATIENT DECLINED TEST ACCEPTED:NO REASON:PATIENT DECLINED BROCHURE PROVIDED TO PATIENTNO OTHERS AT HOME: IV'S TO RIGHT ARM ONLY, PT HAS CREST SYNDROME. EDUCATION LEVEL OF EDUCATION:FINISHED HIGH SCHOOL DIET: REGULAR. LANGUAGE LANGUAGES SPOKEN:OTHER SIGN DOMESTIC VIOLENCE DO YOU FEEL SAFE IN YOUR ENVIRONMENT?YES BMI CARE GOAL FOLLOW-UP ABOVE NORMAL BMI FOLLOW-UPDIETARY MANAGEMENT EDUCATION, GUIDANCE, AND COUNSELING, DIETARY NEEDS EDUCATION RECREATIONAL DRUG USE DRUG USE?NO EXERCISE: NO REGULAR EXERCISE. 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 READINESS TO LEARN?YES LEARNING PREFERENCES?NO LEARNING CAPABILITIES PRESENT?YES EMOTIONAL BARRIERS?NO SPECIAL DEVICES?NO BIOMEDICAL SPECIALIST NEEDED?YES LUNG CANCER SCREENING SMOKING STATUS:CURRENT SMOKER IS THE PATIENT BETWEEN THE AGE OF 53 AND 75?NO PAIN CLINIC PFS, CLERGY, PUBLIC HEALTH REFERRALS HAS THE PATIENT BEEN EDUCATED REGARDING HIS/HER PLAN OF CARE?YES HAS THE PATIENT BEEN EDUCATED REGARDING PAIN, THE RISK FOR PAIN, THE IMPORTANCE OF EFFECTIVE PAIN MANAGEMENT, AND THE PAIN ASSESSMENT PROCESS?YES LATEX QUESTIONNAIRE LATEX ALLERGY : HAVE YOU EVER DEVELOPED ANY TYPE OF REACTION AFTER HANDLING LATEX PRODUCTS SUCH RUBBER GLOVES, CONDOMS, DIAPHRAGMS, BALLOONS, SOCKS, OR UNDERWEAR?NO LATEX ALLERGY : HAVE YOU EVER DEVELOPED ANY TYPE OF REACTION DURING OR AFTER DENTAL APPOINTMENT, VAGINAL/RECTAL EXAMINATION, SURGICAL PROCEDURE, OR ANY OTHER EXPOSURE?NO DATE ASKED : 07/03/2018 LATEX RISK : HAVE YOU EVER HAD ANY DIFFICULTY BREATHING OR HIVES AFTER EATING OR HANDLING ANY FRUITS, OR VEGETABLES; SUCH KIWI, BANANAS, STONE FRUITS, OR CHESTNUTSNO LATEX RISK : DO YOU HAVE A PREVIOUS PERSONAL HISTORY OF MORE THAN NINE SURGERIES, SPINA BIFIDA, OR REPEATED CATHERIZATIONS? NO LATEX RISK : ARE YOU FREQUENTLY EXPOSED TO LATEX PRODUCTS IN YOUR OCCUPATION?NO CAFFEINE CAFFEINE USE?YES HOW OFTEN AND HOW MUCH? COFFEE, TEA ADVANCE DIRECTIVE ADVANCE DIRECTIVE DISCUSSED WITH PATIENT:YES PT HAS HCP FORM AT HOME AND IS THINKING ABOUT IT. DECLINES ASSISTANCE WITH FORM TODAY JAIN [id number] NONE MARITAL STATUS: SINGLE. OCCUPATION: UNEMPLOYED. SEXUAL HX HAD SEX IN THE LAST 12 MONTHS (VAGINAL, ORAL, OR ANAL)?NO LMP:2014 HAVE YOU EVER HAD AN STD?NO REVIEWED WITH PT 10/06/18 1318 BVREVIEWED WITH PT 11/15/18 1412 BVREVIEWED WITH PATIENT 12/06/18 NLJ. HOSPITALIZATION/MAJOR DIAGNOSTIC PROCEDURE SURGERY REVIEW OF SYSTEMS REVIEWED BY: PROVIDER: SONIA FLETCHER . CONSTITUTIONAL: ANY CHANGE IN YOUR MEDICAL CONDITION? NO . CHILLS NO . FEVER NO . INFECTION: DO YOU HAVE NEW INFECTIONS? NO . DO YOU HAVE HISTORY OF MRSA? NO . MUSCULOSKELETAL: ANY NEW PATTERNS OF PAIN OR NUMBNESS? NO . GASTROENTEROLOGY: ANY NEW CHANGE IN BOWEL CONTROL? NO . GENITOURINARY: ANY NEW CHANGE IN BLADDER CONTROL? NO . IS THERE A CHANCE YOU COULD BE ? NO . HEMATOLOGY/LYMPH: DO YOU TAKE ANY BLOOD THINNERS? (FOR EXAMPLE- COUMADIN, PLAVIX, AGGRENOX, PLATEL, PRADAXA, OR XARELTO) NO . WHEN WAS YOUR LAST DOSE? DATE: TIME: . NEUROLOGY: HAVE YOU FALLEN IN THE PAST 12 MONTHS? NO . ANY NEW EXTREMITY NUMBNESS OR WEAKNESS? NO . CARDIOLOGY: DO YOU HAVE A PACEMAKER OR DEFIBRILLATOR? NO . RESPIRATORY: HAVE YOU BEEN SICK IN THE PAST WEEK? NO . FEVER NO . FLU LIKE SYMPTOMS? NO . COUGH NO . INTEGUMENTARY: DO YOU HAVE ANY RASHES OR OPEN SORES? NO . ALLERGIC/IMMUNO: ARE YOU ALLERGIC TO IV DYE? NO . ANY NEW ALLERGIES? NO . PSYCHIATRIC: DO YOU HAVE THOUGHTS OF HURTING YOURSELF OR SOMEONE ELSE? NO . ARE YOU ABUSED, NEGLECTED, OR IN AN UNSAFE ENVIRONMENT? NO . ENDOCRINOLOGY: ARE YOU DIABETIC? NO . OTHER: DO YOU NEED ANY PRESCRIPTIONS? NO . IF YES, PLEASE LIST: ____ . ANY NEW PROBLEMS WITH YOUR MEDICATIONS? NO . WHEN DID YOU LAST EAT? ____ . WHEN DID YOU LAST DRINK? ____ . WHAT DID YOU LAST DRINK? ____ . NAME OF PERSON DRIVING YOU HOME? ____ . DO YOU HAVE ANY OTHER QUESTIONS OR CONCERNS NO . VITAL SIGNS WT 155.6 LBS, HT 64.75 IN, BMI 26.09 INDEX, BP 120/76 MM HG, HR 87 /MIN, RR 18 /MIN, TEMP 98.0 F, OXYGEN SAT % 100%, NA INITIALS SC 14:16, REVIEWED BY: EM. EXAMINATION GENERAL EXAMINATION: GENERALNO ACUTE DISTRESS, WELL NOURISHED AND HYDRATED. PSYCHAPPROPRIATE MOOD AND AFFECT . LUNGS:CLEAR TO AUSCULTATION BILATERALLY, NO WHEEZES, RHONCHI, RALES. HEART:NO MURMURS, REGULAR RATE AND RHYTHM. ASSESSMENTS MYALGIA, OTHER SITE - M79.18 (PRIMARY) TREATMENT MYALGIA, OTHER SITE CLINICAL NOTES: 43-YEAR-OLD FEMALE IN FOR CHRONIC PAIN FOLLOW-UP. GIVEN PRESENTING SYMPTOMS AND RESULTS OF PHYSICAL EXAMINATION RECOMMENDED FOLLOW-UP AFTER GASTROPARESIS STUDY SO WE CAN POTENTIALLY SCHEDULE A THORACIC TPI. PATIENT HAS EXPRESSED UNDERSTANDING OF AND WAS IN AGREEMENT WITH TREATMENT PLAN. GIVEN TIME TO ASK QUESTIONS AND EXPRESS CONCERNS. PROCEDURE CODES FA211 ESTABILISHED PATIENT [facility] FACILITY CHARGE DISPOSITION & COMMUNICATION FOLLOW UP 4 WEEKS (REASON: CHRONIC PAIN ) ELECTRONICALLY SIGNED BY DERREK MELLO ON 02/06/2019 AT 12:59 PM EDT DISCLAIMER : THIS IS A VISIT SUMMARY EXTRACTED FROM THE [employer] CHART. IT IS NOT A COPY OF THE [employer] PROGRESS NOTE. TABBY
== END ==
LOC: M PAIN 13:30
PROVIDERS: ATTEND Family Medicine
DX: M79.18 Myalgia, other site (principal); E03.9 Hypothyroidism, unspecified; F17.210 Nicotine dependence, cigarettes, uncomplicated; Z79.899 Other long term (current) drug therapy

== ENCOUNTER 2019-02-16 08:51 | Day surgery (SDC) | payer MEDICARE, MEDICAID ==
[~2019-02-16] VITALS: Ht 167.6 cm; Wt 69.4 kg
[~2019-02-16 08:51] MED LIST changes: +NS 1,000 ML IV ONE
[2019-02-16] MEDS ORDERED: LIDOCAINE 2% INJ 100 MG/5 ML SDV (FOR ANES.) As Ordered ONE (08:58)
[2019-02-16] MEDS ORDERED: PROPOFOL 200 MG/20 ML VIAL As Ordered ONE (08:58)
[2019-02-16] MEDS ORDERED: fentaNYL 100 MCG/2 ML INJECTION (J3010) As Ordered ONE (08:59)
[2019-02-16] MEDS ORDERED: ePHEDrine SULFATE 25 MG/5 ML(5MG/ML) SYRINGE As Ordered ONE (10:55)
--- NOTE | 2019-02-16 11:02 | ROOR ---
Patient Name: Daisha Mercado Procedure Date: 02/16/2019 10:39 AM Date of : 1975 Age: 43 Room: [facility] Gender: Female Note Status: Finalized Procedure: Upper GI endoscopy Indications: Dyspepsia, Gastroparesis (stomach full of food after 8 hour fast on EGD of 12/04) Providers: Roberto Carlos TOBIAS MD Referring MD: Twan RAMIREZ MD Requesting Provider: Medicines: Monitored Anesthesia Care Complications: No immediate complications. Procedure: Pre-Anesthesia Assessment: - The heart rate, respiratory rate, oxygen saturations, blood pressure, adequacy of pulmonary ventilation, and response to care were monitored throughout the procedure. The Endoscope was introduced through the mouth, and advanced to the second part of duodenum. The upper GI endoscopy was accomplished without difficulty. The patient tolerated the procedure well. Findings: The esophagus was normal. The stomach was normal. The examined duodenum was normal. Impression: - Normal esophagus. - Normal stomach. - Normal examined duodenum. - No specimens collected. Recommendation: - Observe patient's clinical course. - Gastroparesis diet: - Eat smaller, more frequent meals throughout the day. - Low fat diet. - Liquid/soft foods are tolerated better than solid foods. - Low fiber/well cooked vegetables are tolerated better than high fiber/fibrous foods/raw vegetables. - Avoid medications that inhibit gastric/intestinal motility such as narcotic medications. Roberto Carlos Tobias MD Roberto Carlos TOBIAS MD 02/16/2019 11:02:11 AM Electronically signed by Roberto Carlos TOBIAS MD Number of Addenda: 0 Note Initiated On: 02/16/2019 10:39 AM Estimated Blood Loss: Estimated blood loss: none.
[2019-02-16 11:32] VITALS: BP 92/53
== END 2019-02-16 15:17 | disposition home or self-care (01) ==
LOC: M OPP 08:51
PROVIDERS: ATTEND Internal Medicine Gastroenterology
DX: R10.13 Epigastric pain (principal); K31.84 Gastroparesis; E03.9 Hypothyroidism, unspecified; M34.1 CR(E)ST syndrome; F17.210 Nicotine dependence, cigarettes, uncomplicated; Z79.899 Other long term (current) drug therapy
CPT/HCPCS: 43235; J3010

== ENCOUNTER → 2019-03-13 | Outpatient (CLI) | payer MEDICARE, MEDICAID ==
[~2019-03-13] MED LIST changes: -NS 1,000 ML IV ONE
--- NOTE | 2019-03-15 01:43 | ECWPNPC ---
PATIENT NAME: YUSEF TAO : 1975 GENDER: FEMALE VISIT DATE: 03/13/2019 DISCHARGE DATE: 03/13/19 1458 VISIT LOCKED DATE TIME: PHYSICIAN: CL FORTE RESOURCE: CL FORTE REASON FOR APPOINTMENT 1. 4 WEEKS HISTORY OF PRESENT ILLNESS HISTORY OF PRESENT ILLNESS: PAIN THE PATIENT DESCRIBES THE PAIN... 43-YEAR-OLD FEMALE IN FOR CHRONIC PAIN FOLLOW-UP. SHE RATES HER PAIN CURRENTLY AT A 6 OUT OF 10 AND DESCRIBES IT ACHING, SHARP, SORE, AND STIFF. SHE HAD A WORKUP BY GI AN EGD WAS PERFORMED AND FOUND TO BE NEGATIVE. PATIENT CONTINUES TO HAVE THORACIC BACK PAIN THAT RADIATES TO THE STERNAL AREA. FALL RISK SCREENING: SCREENING :NO FALLS REPORTED IN THE LAST YEAR CURRENT MEDICATIONS TAKING [id number] 3.5-24412-1.1 SUSPENSION APPLY ONE DROP INTO BOTH EYES FOUR TIMES A DAY DIRECTED OPHTHALMIC NEEDED TAKING TYLENOL EXTRA STRENGTH 500 MG TABLET 1 TABLET NEEDED ORALLY EVERY 6 HRS TAKING DOCUSATE SODIUM 250 MG CAPSULE 1 CAPSULE NEEDED ORALLY ONCE A DAY TAKING SPIRONOLACTONE 50 MG TABLET 2 TABLETS ORALLY ONCE A DAY TAKING TRETINOIN 0.05 % CREAM 1 APPLICATION TO AFFECTED AREA IN THE EVENING TO FACE EXTERNALLY ONCE A DAY IN EVENING TO WHOLE FACE AFTER WASHING TAKING LEVOTHYROXINE SODIUM 100 MCG TABLET 1 TABLET ON AN EMPTY STOMACH IN THE MORNING ORALLY ONCE A DAY TAKING PANTOPRAZOLE SODIUM 40 MG TABLET DELAYED RELEASE 1 TABLET ORALLY ONCE A DAY NOT-TAKING MELOXICAM 7.5 MG TABLET 1 TABLET ORALLY ONCE A DAY NOT-TAKING DOXYCYCLINE HYCLATE 100 MG CAPSULE 1 CAPSULE ORALLY TWICE A DAY FOR ACNE MEDICATION LIST REVIEWED AND RECONCILED WITH THE PATIENT PAST MEDICAL HISTORY HYPOTHYROIDISM (2000) LOW BACK PAIN 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 RICO FOR GASTRO ISSUES GLAUCOMA ALLERGIES N.K.D.A. SURGICAL HISTORY LEFT FOOT SURGERY 1996? HYSTERECTOMY- PARTIAL 11/20/14 COLONOSCOPY 02/10/2018 FAMILY HISTORY FATHER: ALIVE, CANCER, SKIN, CANCER, PROSTATE MOTHER: ALIVE, DIABETES SIBLINGS: ALIVE, KIDNEY DISEASE (SISTER) PATERNAL GRAND FATHER: , [place] PATERNAL GRAND MOTHER: ALIVE, CORONARY ARTERY DISEASE MATERNAL GRAND FATHER: , [place] MATERNAL GRAND MOTHER: , STROKE 1 BROTHER(S) , 1 SISTER(S) . NEPHEW HAS CANCER- RECENT DIAGONSED FATHER HAD SKIN CANCER, UNSURE WHAT TYPE. AUNT ON MATERNAL SIDE HAD BREAST CANCER.DENIES FAMILY HX OF PANCREATIC CANCER. SOCIAL HISTORY GENERAL: TOBACCO USE ARE YOU A:CURRENT SMOKER ARE YOU INTERESTED IN QUITTING?THINKING ABOUT QUITTING HOPING TO QUIT AFTER THE NEW YEAR. COUNSELED THE PATIENT ON SMOKING CESSATION, EDUCATION [id number]/26/2019 HOW MANY CIGARETTES A DAY DO YOU SMOKE?6-10 HOW OFTEN DO YOU SMOKE CIGARETTES?EVERY DAY PATIENT COUNSELED ON THE DANGERS OF TOBACCO USE AND URGED TO QUIT:03/13/2019 SMOKING CESSATION INFORMATION GIVEN12/06/2018 HIV / HEP-C SCREENING HIV TEST OFFERED TO PATIENT:YES DATE OFFERED:09/29/2017 TEST ACCEPTED:NO HEP-C TEST OFFERED TO PATIENT:YES DATE OFFERED:09/29/2017 REASON:PATIENT DECLINED TEST ACCEPTED:NO REASON:PATIENT DECLINED BROCHURE PROVIDED TO PATIENTNO OTHERS AT HOME: IV'S TO RIGHT ARM ONLY, PT HAS CREST SYNDROME. EDUCATION LEVEL OF EDUCATION:FINISHED HIGH SCHOOL DIET: REGULAR. LANGUAGE LANGUAGES SPOKEN:OTHER SIGN DOMESTIC VIOLENCE DO YOU FEEL SAFE IN YOUR ENVIRONMENT?YES BMI CARE GOAL FOLLOW-UP ABOVE NORMAL BMI FOLLOW-UPDIETARY MANAGEMENT EDUCATION, GUIDANCE, AND COUNSELING, DIETARY NEEDS EDUCATION RECREATIONAL DRUG USE DRUG USE?NO EXERCISE: NO REGULAR EXERCISE. 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 NEEDED?YES LUNG CANCER SCREENING SMOKING STATUS:CURRENT SMOKER IS THE PATIENT BETWEEN THE AGE OF 53 AND 75?NO PAIN CLINIC PFS, CLERGY, PUBLIC HEALTH REFERRALS HAS THE PATIENT BEEN EDUCATED REGARDING HIS/HER PLAN OF CARE?YES HAS THE PATIENT BEEN EDUCATED REGARDING PAIN, THE RISK FOR PAIN, THE IMPORTANCE OF EFFECTIVE PAIN MANAGEMENT, AND THE PAIN ASSESSMENT PROCESS?YES LATEX QUESTIONNAIRE LATEX ALLERGY : HAVE YOU EVER DEVELOPED ANY TYPE OF REACTION AFTER HANDLING LATEX PRODUCTS SUCH RUBBER GLOVES, CONDOMS, DIAPHRAGMS, BALLOONS, SOCKS, OR UNDERWEAR?NO LATEX ALLERGY : HAVE YOU EVER DEVELOPED ANY TYPE OF REACTION DURING OR AFTER DENTAL APPOINTMENT, VAGINAL/RECTAL EXAMINATION, SURGICAL PROCEDURE, OR ANY OTHER EXPOSURE?NO LATEX RISK : HAVE YOU EVER HAD ANY DIFFICULTY BREATHING OR HIVES AFTER EATING OR HANDLING ANY FRUITS, OR VEGETABLES; SUCH KIWI, BANANAS, STONE FRUITS, OR CHESTNUTSNO LATEX RISK : DO YOU HAVE A PREVIOUS PERSONAL HISTORY OF MORE THAN NINE SURGERIES, SPINA BIFIDA, OR REPEATED CATHERIZATIONS? NO LATEX RISK : ARE YOU FREQUENTLY EXPOSED TO LATEX PRODUCTS IN YOUR OCCUPATION?NO DATE ASKED : 07/03/2018 CAFFEINE CAFFEINE USE?YES HOW OFTEN AND HOW MUCH? COFFEE, TEA ADVANCE DIRECTIVE ADVANCE DIRECTIVE DISCUSSED WITH PATIENT:YES PT HAS HCP FORM AT HOME AND IS THINKING ABOUT IT. DECLINES ASSISTANCE WITH FORM TODAY [id number] NONE MARITAL STATUS: SINGLE. OCCUPATION: UNEMPLOYED. SEXUAL HX HAD SEX IN THE LAST 12 MONTHS (VAGINAL, ORAL, OR ANAL)?NO LMP:2014 HAVE YOU EVER HAD AN STD?NO REVIEWED WITH PT 10/06/18 1318 BVREVIEWED WITH PT 11/15/18 1412 BVREVIEWED WITH PATIENT 12/06/18 NLJREVIEWED WITH PATIENT 03/13/19 1414 JS. HOSPITALIZATION/MAJOR DIAGNOSTIC PROCEDURE SURGERY REVIEW OF SYSTEMS REVIEWED BY: PROVIDER: SONIA FLETCHER . CONSTITUTIONAL: ANY CHANGE IN YOUR MEDICAL CONDITION? YES, GLAUCOMA . CHILLS NO . FEVER NO . INFECTION: DO YOU HAVE NEW INFECTIONS? NO . DO YOU HAVE HISTORY OF MRSA? NO . MUSCULOSKELETAL: ANY NEW PATTERNS OF PAIN OR NUMBNESS? NO . GASTROENTEROLOGY: ANY NEW CHANGE IN BOWEL CONTROL? NO . GENITOURINARY: ANY NEW CHANGE IN BLADDER CONTROL? NO . IS THERE A CHANCE YOU COULD BE ? NO . HEMATOLOGY/LYMPH: DO YOU TAKE ANY BLOOD THINNERS? (FOR EXAMPLE- COUMADIN, PLAVIX, AGGRENOX, PLATEL, PRADAXA, OR XARELTO) NO . WHEN WAS YOUR LAST DOSE? DATE: TIME: . NEUROLOGY: HAVE YOU FALLEN IN THE PAST 12 MONTHS? NO . ANY NEW EXTREMITY NUMBNESS OR WEAKNESS? NO . CARDIOLOGY: DO YOU HAVE A PACEMAKER OR DEFIBRILLATOR? NO . RESPIRATORY: HAVE YOU BEEN SICK IN THE PAST WEEK? NO . FEVER NO . FLU LIKE SYMPTOMS? NO . COUGH NO . INTEGUMENTARY: DO YOU HAVE ANY RASHES OR OPEN SORES? NO . ALLERGIC/IMMUNO: ARE YOU ALLERGIC TO IV DYE? NO . ANY NEW ALLERGIES? NO . PSYCHIATRIC: DO YOU HAVE THOUGHTS OF HURTING YOURSELF OR SOMEONE ELSE? NO . ARE YOU ABUSED, NEGLECTED, OR IN AN UNSAFE ENVIRONMENT? NO . ENDOCRINOLOGY: ARE YOU DIABETIC? NO . OTHER: DO YOU NEED ANY PRESCRIPTIONS? NO . IF YES, PLEASE LIST: ____ . ANY NEW PROBLEMS WITH YOUR MEDICATIONS? NO . WHEN DID YOU LAST EAT? ____ . WHEN DID YOU LAST DRINK? ____ . WHAT DID YOU LAST DRINK? ____ . NAME OF PERSON DRIVING YOU HOME? ____ . DO YOU HAVE ANY OTHER QUESTIONS OR CONCERNS FLU VACCINE NEXT MONTH . VITAL SIGNS WT 155.6 LBS, HT 64.75 IN, BMI 26.09 INDEX, BP 114/65 MM HG, HR 75 /MIN, RR 18 /MIN, TEMP 97.4 F, OXYGEN SAT % 92%, SAFE IN ENV? (Y/N) YES, NA INITIALS AW 1356, REVIEWED BY: MAXWELL. EXAMINATION GENERAL EXAMINATION: GENERALNO ACUTE DISTRESS, WELL NOURISHED AND HYDRATED. PSYCHAPPROPRIATE MOOD AND AFFECT . LUNGS:CLEAR TO AUSCULTATION BILATERALLY, NO WHEEZES, RHONCHI, RALES. HEART:NO MURMURS, REGULAR RATE AND RHYTHM. ASSESSMENTS MYALGIA, OTHER SITE - M79.18 (PRIMARY) TREATMENT MYALGIA, OTHER SITE START CYCLOBENZAPRINE HCL TABLET, 10 MG, 1 TABLET NEEDED, ORALLY, BID NEEDED, 30 DAYS, 60 CLINICAL NOTES: 43-YEAR-OLD FEMALE IN FOR CHRONIC PAIN FOLLOW-UP. GIVEN PRESENTING SYMPTOMS AND RESULTS PHYSICAL EXAMINATION RECOMMENDED SICKLED BENZAPRIL TWICE A DAY NEEDED. INFORMED PATIENT THIS GLOBAL COORDINATOR WOULD DISCUSS PROCEDURES WITH DR. MORA AND CALL HER REGARDING AND PLAN. PATIENT HAS EXPRESSED UNDERSTANDING OF AND WAS IN AGREEMENT WITH TREATMENT PLAN. GIVEN TIME TO ASK QUESTIONS AND EXPRESS CONCERNS. PREVENTIVE MEDICINE PAIN CLINIC TEACHING: MEDICATIONS PRINTED AND REVIEWED INFORMATION ON NEW MEDICATION, CYCLOBENZAPRINE, WITH PATIENT. PATIENT VERBALIZED AN UNDERSTANDING. MARKUS GRANGER 03/13/2019 2:57:34 PM > . PROCEDURE CODES FA211 ESTABILISHED PATIENT [facility] CHARGE DISPOSITION & COMMUNICATION FOLLOW UP 4 WEEKS (REASON: THORACIC BACK PAIN MEDICATION) ELECTRONICALLY SIGNED BY DERREK MELLO ON 03/14/2019 AT 01:55 PM EST DISCLAIMER : THIS IS A VISIT SUMMARY EXTRACTED FROM THE [facility] CHART. IT IS NOT A COPY OF THE [facility] PROGRESS NOTE. TABBY
== END ==
LOC: M PAIN 13:30
PROVIDERS: ATTEND Family Medicine
DX: M79.18 Myalgia, other site (principal); E03.9 Hypothyroidism, unspecified; F17.210 Nicotine dependence, cigarettes, uncomplicated; Z79.899 Other long term (current) drug therapy

== ENCOUNTER → 2019-04-02 | Outpatient (REF) | payer MEDICARE, MEDICAID | LOC: M SFHCLERA 13:59 | PROVIDERS: ATTEND Family Medicine | DX: E03.9 Hypothyroidism, unspecified (principal) | CPT/HCPCS: 84443; 90682; G0008 ==

== ENCOUNTER → 2019-04-19 | Outpatient (CLI) | payer MEDICARE, MEDICAID ==
--- NOTE | 2019-04-21 01:13 | ECWPNPC ---
PATIENT NAME: YUSEF TAO : 1975 GENDER: FEMALE VISIT DATE: 04/19/2019 DISCHARGE DATE: 04/19/19 1417 VISIT LOCKED DATE TIME: PHYSICIAN: CL FORTE RESOURCE: CL FORTE REASON FOR APPOINTMENT 1. 4 WEEKS HISTORY OF PRESENT ILLNESS HISTORY OF PRESENT ILLNESS: PAIN THE PATIENT DESCRIBES THE PAIN... 43-YEAR-OLD FEMALE IN FOR CHRONIC PAIN FOLLOW-UP. SHE HAS HAD AN EGD DONE AND THE RESULTS WERE NEGATIVE FOR PATIENT. SHE RATES HER PAIN CURRENTLY AT A 6 OUT OF 10 AND DESCRIBES IT SORE, SHARP, AND STIFF. SHE WOULD LIKE TO DISCUSS A PROCEDURE TO HELP WITH HER PAIN. FALL RISK SCREENING: SCREENING :NO FALLS REPORTED IN THE LAST YEAR CURRENT MEDICATIONS TAKING [id number] 3.5-26739-0.1 SUSPENSION APPLY ONE DROP INTO BOTH EYES FOUR TIMES A DAY DIRECTED OPHTHALMIC NEEDED TAKING TYLENOL EXTRA STRENGTH 500 MG TABLET 1 TABLET NEEDED ORALLY EVERY 6 HRS TAKING DOCUSATE SODIUM 250 MG CAPSULE 1 CAPSULE NEEDED ORALLY ONCE A DAY TAKING SPIRONOLACTONE 50 MG TABLET 2 TABLETS ORALLY ONCE A DAY TAKING TRETINOIN 0.05 % CREAM 1 APPLICATION TO AFFECTED AREA IN THE EVENING TO FACE EXTERNALLY ONCE A DAY IN EVENING TO WHOLE FACE AFTER WASHING TAKING LEVOTHYROXINE SODIUM 100 MCG TABLET 1 TABLET ON AN EMPTY STOMACH IN THE MORNING ORALLY ONCE A DAY TAKING PANTOPRAZOLE SODIUM 40 MG TABLET DELAYED RELEASE 1 TABLET ORALLY ONCE A DAY TAKING CYCLOBENZAPRINE HCL 10 MG TABLET 1 TABLET NEEDED ORALLY BID NEEDED TAKING NICOTROL 10 MG INHALER 1 CARTRIDGE NEEDED INHALATION 10 TIME(S) A DAY NOT-TAKING MELOXICAM 7.5 MG TABLET 1 TABLET ORALLY ONCE A DAY NOT-TAKING DOXYCYCLINE HYCLATE 100 MG CAPSULE 1 CAPSULE ORALLY TWICE A DAY FOR ACNE MEDICATION LIST REVIEWED AND RECONCILED WITH THE PATIENT PAST MEDICAL HISTORY HYPOTHYROIDISM (2000) LOW BACK PAIN 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 RICO FOR GASTRO ISSUES GLAUCOMA ALLERGIES N.K.D.A. SURGICAL HISTORY LEFT FOOT SURGERY 1996? HYSTERECTOMY- PARTIAL 11/20/14 COLONOSCOPY 02/10/2018 FAMILY HISTORY FATHER: ALIVE, CANCER, SKIN, CANCER, PROSTATE MOTHER: ALIVE, DIABETES SIBLINGS: ALIVE, KIDNEY DISEASE (SISTER) PATERNAL GRAND FATHER: , [place] PATERNAL GRAND MOTHER: ALIVE, CORONARY ARTERY DISEASE MATERNAL GRAND FATHER: , [place] MATERNAL GRAND MOTHER: , STROKE 1 BROTHER(S) , 1 SISTER(S) . NEPHEW HAS CANCER- RECENT DIAGONSED FATHER HAD SKIN CANCER, UNSURE WHAT TYPE. AUNT ON MATERNAL SIDE HAD BREAST CANCER.DENIES FAMILY HX OF PANCREATIC CANCER. SOCIAL HISTORY GENERAL: TOBACCO USE ARE YOU A:FORMER SMOKER HOW LONG HAS IT BEEN SINCE YOU LAST SMOKED?1-3 MONTHS SMOKING CESSATION INFORMATION GIVEN04/02/2019 VAPORNO E-CIGARETTENO HIV / HEP-C SCREENING HIV TEST OFFERED TO PATIENT:YES DATE OFFERED:09/29/2017 TEST ACCEPTED:NO HEP-C TEST OFFERED TO PATIENT:YES DATE OFFERED:09/29/2017 REASON:PATIENT DECLINED TEST ACCEPTED:NO REASON:PATIENT DECLINED BROCHURE PROVIDED TO PATIENTNO OTHERS AT HOME: IV'S TO RIGHT ARM ONLY, PT HAS CREST SYNDROME. EDUCATION LEVEL OF EDUCATION:FINISHED HIGH SCHOOL DIET: REGULAR. LANGUAGE LANGUAGES SPOKEN:OTHER SIGN DOMESTIC VIOLENCE DO YOU FEEL SAFE IN YOUR ENVIRONMENT?YES BMI CARE GOAL FOLLOW-UP ABOVE NORMAL BMI FOLLOW-UPDIETARY MANAGEMENT EDUCATION, GUIDANCE, AND COUNSELING, DIETARY NEEDS EDUCATION RECREATIONAL DRUG USE DRUG USE?NO EXERCISE: NO REGULAR EXERCISE. 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 READINESS TO LEARN?YES LEARNING PREFERENCES?NO LEARNING CAPABILITIES PRESENT?YES EMOTIONAL BARRIERS?NO SPECIAL DEVICES?NO OYSTER TONGER NEEDED?YES LUNG CANCER SCREENING SMOKING STATUS:CURRENT SMOKER IS THE PATIENT BETWEEN THE AGE OF 53 AND 75?NO PAIN CLINIC PFS, CLERGY, PUBLIC HEALTH REFERRALS HAS THE PATIENT BEEN EDUCATED REGARDING HIS/HER PLAN OF CARE?YES HAS THE PATIENT BEEN EDUCATED REGARDING PAIN, THE RISK FOR PAIN, THE IMPORTANCE OF EFFECTIVE PAIN MANAGEMENT, AND THE PAIN ASSESSMENT PROCESS?YES LATEX QUESTIONNAIRE LATEX ALLERGY : HAVE YOU EVER DEVELOPED ANY TYPE OF REACTION AFTER HANDLING LATEX PRODUCTS SUCH RUBBER GLOVES, CONDOMS, DIAPHRAGMS, BALLOONS, SOCKS, OR UNDERWEAR?NO LATEX ALLERGY : HAVE YOU EVER DEVELOPED ANY TYPE OF REACTION DURING OR AFTER DENTAL APPOINTMENT, VAGINAL/RECTAL EXAMINATION, SURGICAL PROCEDURE, OR ANY OTHER EXPOSURE?NO DATE ASKED : 07/03/2018 LATEX RISK : HAVE YOU EVER HAD ANY DIFFICULTY BREATHING OR HIVES AFTER EATING OR HANDLING ANY FRUITS, OR VEGETABLES; SUCH KIWI, BANANAS, STONE FRUITS, OR CHESTNUTSNO LATEX RISK : DO YOU HAVE A PREVIOUS PERSONAL HISTORY OF MORE THAN NINE SURGERIES, SPINA BIFIDA, OR REPEATED CATHERIZATIONS? NO LATEX RISK : ARE YOU FREQUENTLY EXPOSED TO LATEX PRODUCTS IN YOUR OCCUPATION?NO CAFFEINE CAFFEINE USE?YES HOW OFTEN AND HOW MUCH? COFFEE, TEA ADVANCE DIRECTIVE ADVANCE DIRECTIVE DISCUSSED WITH PATIENT:YES PT HAS HCP FORM AT HOME AND IS THINKING ABOUT IT. DECLINES ASSISTANCE WITH FORM TODAY GNOSTICIST [id number] NONE MARITAL STATUS: SINGLE. OCCUPATION: UNEMPLOYED. SEXUAL HX HAD SEX IN THE LAST 12 MONTHS (VAGINAL, ORAL, OR ANAL)?NO LMP:2014 HAVE YOU EVER HAD AN STD?NO REVIEWED WITH PT 10/06/18 1318 BVREVIEWED WITH PT 11/15/18 1412 BVREVIEWED WITH PATIENT 12/06/18 NLJREVIEWED WITH PATIENT 03/13/19 1414 JS. HOSPITALIZATION/MAJOR DIAGNOSTIC PROCEDURE SURGERY REVIEW OF SYSTEMS REVIEWED BY: PROVIDER: SONIA FLETCHER . CONSTITUTIONAL: ANY CHANGE IN YOUR MEDICAL CONDITION? NO . CHILLS NO . FEVER NO . INFECTION: DO YOU HAVE NEW INFECTIONS? NO . DO YOU HAVE HISTORY OF MRSA? NO . MUSCULOSKELETAL: ANY NEW PATTERNS OF PAIN OR NUMBNESS? NO . GASTROENTEROLOGY: ANY NEW CHANGE IN BOWEL CONTROL? NO . GENITOURINARY: ANY NEW CHANGE IN BLADDER CONTROL? NO . IS THERE A CHANCE YOU COULD BE ? NO . HEMATOLOGY/LYMPH: DO YOU TAKE ANY BLOOD THINNERS? (FOR EXAMPLE- COUMADIN, PLAVIX, AGGRENOX, PLATEL, PRADAXA, OR XARELTO) NO . WHEN WAS YOUR LAST DOSE? DATE: TIME: . NEUROLOGY: HAVE YOU FALLEN IN THE PAST 12 MONTHS? NO . ANY NEW EXTREMITY NUMBNESS OR WEAKNESS? NO . CARDIOLOGY: DO YOU HAVE A PACEMAKER OR DEFIBRILLATOR? NO . RESPIRATORY: HAVE YOU BEEN SICK IN THE PAST WEEK? NO . FEVER NO . FLU LIKE SYMPTOMS? NO . COUGH NO . INTEGUMENTARY: DO YOU HAVE ANY RASHES OR OPEN SORES? NO . ALLERGIC/IMMUNO: ARE YOU ALLERGIC TO IV DYE? NO . ANY NEW ALLERGIES? NO . PSYCHIATRIC: DO YOU HAVE THOUGHTS OF HURTING YOURSELF OR SOMEONE ELSE? NO . ARE YOU ABUSED, NEGLECTED, OR IN AN UNSAFE ENVIRONMENT? NO . ENDOCRINOLOGY: ARE YOU DIABETIC? NO . OTHER: DO YOU NEED ANY PRESCRIPTIONS? NO . IF YES, PLEASE LIST: ____ . ANY NEW PROBLEMS WITH YOUR MEDICATIONS? NO . WHEN DID YOU LAST EAT? ____ . WHEN DID YOU LAST DRINK? ____ . WHAT DID YOU LAST DRINK? ____ . NAME OF PERSON DRIVING YOU HOME? ____ . DO YOU HAVE ANY OTHER QUESTIONS OR CONCERNS NO . VITAL SIGNS WT 159.6 LBS, HT 64.75 IN, BMI 26.76 INDEX, BP 117/62 MM HG, HR 74 /MIN, RR 18 /MIN, TEMP 97.3 F, OXYGEN SAT % 93%, NA INITIALS AW 1329, REVIEWED BY: EM. EXAMINATION GENERAL EXAMINATION: GENERALNO ACUTE DISTRESS, WELL NOURISHED AND HYDRATED. PSYCHAPPROPRIATE MOOD AND AFFECT . CHEST:POINT TENDER PROXIMAL TO THE XIPHOID PROCESS . LUNGS:CLEAR TO AUSCULTATION BILATERALLY, NO WHEEZES, RHONCHI, RALES. HEART:NO MURMURS, REGULAR RATE AND RHYTHM. ASSESSMENTS RIB PAIN - R07.81 (PRIMARY) TREATMENT RIB PAIN NOTES: INTERCOSTAL BLOCK T6-T8. CLINICAL NOTES: 43 OLD FEMALE IN FOR CHRONIC PAIN FOLLOW-UP. GIVEN PRESENTING SYMPTOMS AND RESULTS OF PHYSICAL EXAMINATION RECOMMENDED INTERCOSTAL BLOCK T6-T8 WITH POSTPROCEDURAL FOLLOW-UP. PATIENT HAS EXPRESSED UNDERSTANDING OF AND WAS IN AGREEMENT WITH TREATMENT PLAN. GIVEN TIME TO ASK QUESTIONS AND EXPRESS CONCERNS. PROCEDURE CODES FA211 ESTABILISHED PATIENT [facility] CHARGE DISPOSITION & COMMUNICATION FOLLOW UP POSTPROCEDURE (REASON: INTERCOSTAL BLOCK T6-T8) ELECTRONICALLY SIGNED BY DERREK MELLO ON 04/20/2019 AT 03:04 PM EST DISCLAIMER : THIS IS A VISIT SUMMARY EXTRACTED FROM THE [employer] CHART. IT IS NOT A COPY OF THE [employer] PROGRESS NOTE. MTDD
== END ==
LOC: M PAIN 13:00
PROVIDERS: ATTEND Family Medicine
DX: R07.81 Pleurodynia (principal)

== ENCOUNTER → 2019-05-24 | Outpatient (CLI) | payer MEDICARE, MEDICAID ==
--- NOTE | 2019-06-01 05:04 | ECWPNPC ---
PATIENT NAME: YUSEF TAO : 1975 GENDER: FEMALE VISIT DATE: 05/24/2019 DISCHARGE DATE: 05/24/19 1635 VISIT LOCKED DATE TIME: PHYSICIAN: YCNTHIA MORA MD RESOURCE: CYNTHIA MORA MD REASON FOR APPOINTMENT 1. INTERCOSTAL BLOCK T6-T8 HISTORY OF PRESENT ILLNESS HISTORY OF PRESENT ILLNESS: PAIN THE PATIENT DESCRIBES THE PAIN... 43 YEAR OLD FEMALE PATIENT WITH A HISTORY OF CHRONIC THORACIC PAIN. THE PATIENT DESCRIBES THE PAIN ACHING, SHARP, DAILY, AND CONTINUOUS WITH A PAIN SCORE OF 6-10/10 DEPENDING ON PHYSICAL ACTIVITY. THE PATIENT SAYS HER PAIN IS NEAR HER ANTERIOR ABDOMINAL AND LOW STERNUM AREA AND SHE HAS BEEN SUFFERING FROM HER PAIN FOR MANY YEARS. THE PATIENT SAYS SHE HAS HAD AN EXTENSIVE WORK UP DONE BY HER PARTNERSHIP MARKETING MANAGER, DR. MAYFIELD, WHO BELIEVES IT IS COSTOCHONDRITIS AND ASSOCIATED WITH EATING. THE PATIENT SAYS SHE IS ALSO EXPERIENCING THORACIC BACK PAIN. PATIENT DENIES UNEXPLAINABLE WEIGHT LOSS, FEVER, CHILLS, NEW CHANGES ON HER URINARY OR BOWEL CONTROL. FALL RISK SCREENING: SCREENING :NO FALLS REPORTED IN THE LAST YEAR CURRENT MEDICATIONS TAKING [id number] SUSPENSION APPLY ONE DROP INTO BOTH EYES FOUR TIMES A DAY DIRECTED OPHTHALMIC NEEDED, NOTES: 05/23 2299 TAKING TYLENOL EXTRA STRENGTH 500 MG TABLET 1 TABLET NEEDED ORALLY EVERY 6 HRS, NOTES: 05/23 1999 TAKING DOCUSATE SODIUM 250 MG CAPSULE 1 CAPSULE NEEDED ORALLY ONCE A DAY, NOTES: 05/23 1829 TAKING LEVOTHYROXINE SODIUM 100 MCG TABLET 1 TABLET ON AN EMPTY STOMACH IN THE MORNING ORALLY ONCE A DAY, NOTES: 05/24 944 TAKING PANTOPRAZOLE SODIUM 40 MG TABLET DELAYED RELEASE 1 TABLET ORALLY ONCE A DAY, NOTES: 05/24 1199 TAKING CYCLOBENZAPRINE HCL 10 MG TABLET 1 TABLET NEEDED ORALLY BID NEEDED, NOTES: 05/20 TAKING NICOTROL 10 MG INHALER 1 CARTRIDGE NEEDED INHALATION 10 TIME(S) A DAY, NOTES: 05/23 1199 TAKING SPIRONOLACTONE 50 MG TABLET 1.5 TAB ORALLY TWICE A DAY, NOTES: 05/23 1899 TAKING TRETINOIN 0.05 % CREAM 1 APPLICATION TO AFFECTED AREA IN THE EVENING TO FACE EXTERNALLY EVERY OTHER EVENING TO WHOLE FACE AFTER WASHING, NOTES: 05/22 TAKING KETOCONAZOLE 2 % CREAM DIRECTED EXTERNALLY ONCE A DAY, NOTES: NONE RECENT NOT-TAKING MELOXICAM 7.5 MG TABLET 1 TABLET ORALLY ONCE A DAY NOT-TAKING DOXYCYCLINE HYCLATE 100 MG CAPSULE 1 CAPSULE ORALLY TWICE A DAY FOR ACNE MEDICATION LIST REVIEWED AND RECONCILED WITH THE PATIENT PAST MEDICAL HISTORY HYPOTHYROIDISM (2000) LOW BACK PAIN 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 RICO FOR GASTRO ISSUES GLAUCOMA RIGHT HIP PAIN-OSTEOARTHRITIS MYALGIA TOBACO USE DISORDER CONSTIPATION DYSPHAGIA ALLERGIES N.K.D.A. SURGICAL HISTORY LEFT FOOT SURGERY 1996? HYSTERECTOMY- PARTIAL 11/20/14 COLONOSCOPY 02/10/2018 FAMILY HISTORY FATHER: ALIVE, CANCER, SKIN, CANCER, PROSTATE MOTHER: ALIVE, DIABETES, EMOTIONAL ISSUES SIBLINGS: ALIVE, KIDNEY DISEASE (SISTER) PATERNAL GRAND FATHER: , PR PATERNAL GRAND MOTHER: ALIVE, CORONARY ARTERY DISEASE MATERNAL GRAND FATHER: , [place] MATERNAL GRAND MOTHER: , STROKE 1 BROTHER(S) , 1 SISTER(S) . NEPHEW HAS CANCER- RECENT DIAGONSED FATHER HAD SKIN CANCER, UNSURE WHAT TYPE. AUNT ON MATERNAL SIDE HAD BREAST CANCER.DENIES FAMILY HX OF PANCREATIC CANCER. SOCIAL HISTORY GENERAL: TOBACCO USE ARE YOU A:FORMER SMOKER HOW LONG HAS IT BEEN SINCE YOU LAST SMOKED?1-3 MONTHS SMOKING CESSATION INFORMATION GIVEN04/02/2019 VAPORNO E-CIGARETTENO HIV / HEP-C SCREENING HIV TEST OFFERED TO PATIENT:YES DATE OFFERED:09/29/2017 TEST ACCEPTED:NO HEP-C TEST OFFERED TO PATIENT:YES DATE OFFERED:09/29/2017 REASON:PATIENT DECLINED TEST ACCEPTED:NO REASON:PATIENT DECLINED BROCHURE PROVIDED TO PATIENTNO OTHERS AT HOME: IV'S TO RIGHT ARM ONLY, PT HAS CREST SYNDROME. EDUCATION LEVEL OF EDUCATION:FINISHED HIGH SCHOOL DIET: REGULAR. LANGUAGE LANGUAGES SPOKEN:OTHER SIGN DOMESTIC VIOLENCE DO YOU FEEL SAFE IN YOUR ENVIRONMENT?YES BMI CARE GOAL FOLLOW-UP ABOVE NORMAL BMI FOLLOW-UPDIETARY MANAGEMENT EDUCATION, GUIDANCE, AND COUNSELING, DIETARY NEEDS EDUCATION RECREATIONAL DRUG USE DRUG USE?NO EXERCISE: NO REGULAR EXERCISE. LEARNING BARRIERS / SPECIAL NEEDS CHANGE FROM LAST VISIT?NO BARRIERS TO LEARNING?NO HEARING IMPAIRED?YES : PT IS DEAF, PRODUCT DEVELOPMENT ACTUARY PRESENT VISION IMPAIRED?YES :CORRECTIVE LENSES COGNITIVELY IMPAIRED?NO READINESS TO LEARN?YES LEARNING PREFERENCES?NO LEARNING CAPABILITIES PRESENT?YES EMOTIONAL BARRIERS?NO SPECIAL DEVICES?YES :CANE SHEEP RANCHER NEEDED?YES LUNG CANCER SCREENING SMOKING STATUS:CURRENT SMOKER IS THE PATIENT BETWEEN THE AGE OF 53 AND 77?NO PAIN CLINIC PFS, CLERGY, PUBLIC HEALTH REFERRALS HAS THE PATIENT BEEN EDUCATED REGARDING HIS/HER PLAN OF CARE?YES HAS THE PATIENT BEEN EDUCATED REGARDING PAIN, THE RISK FOR PAIN, THE IMPORTANCE OF EFFECTIVE PAIN MANAGEMENT, AND THE PAIN ASSESSMENT PROCESS?YES LATEX QUESTIONNAIRE LATEX ALLERGY : HAVE YOU EVER DEVELOPED ANY TYPE OF REACTION AFTER HANDLING LATEX PRODUCTS SUCH RUBBER GLOVES, CONDOMS, DIAPHRAGMS, BALLOONS, SOCKS, OR UNDERWEAR?NO LATEX ALLERGY : HAVE YOU EVER DEVELOPED ANY TYPE OF REACTION DURING OR AFTER DENTAL APPOINTMENT, VAGINAL/RECTAL EXAMINATION, SURGICAL PROCEDURE, OR ANY OTHER EXPOSURE?NO LATEX RISK : HAVE YOU EVER HAD ANY DIFFICULTY BREATHING OR HIVES AFTER EATING OR HANDLING ANY FRUITS, OR VEGETABLES; SUCH KIWI, BANANAS, STONE FRUITS, OR CHESTNUTSNO LATEX RISK : DO YOU HAVE A PREVIOUS PERSONAL HISTORY OF MORE THAN NINE SURGERIES, SPINA BIFIDA, OR REPEATED CATHERIZATIONS? NO LATEX RISK : ARE YOU FREQUENTLY EXPOSED TO LATEX PRODUCTS IN YOUR OCCUPATION?NO DATE ASKED : 05/24/2019 CAFFEINE CAFFEINE USE?YES HOW OFTEN AND HOW MUCH? COFFEE, TEA ADVANCE DIRECTIVE ADVANCE DIRECTIVE DISCUSSED WITH PATIENT:YES 05/24/2019 PT DOES NOT HAVE ANY ADVANCED DIRECTIVES. PT HAS HCP FORM AT HOME AND IS THINKING ABOUT IT. DECLINES ASSISTANCE WITH FORM TODAY. PENTECOSTAL [id number] NONE MARITAL STATUS: SINGLE. OCCUPATION: UNEMPLOYED. SEXUAL HX HAD SEX IN THE LAST 12 MONTHS (VAGINAL, ORAL, OR ANAL)?NO LMP:2014 HAVE YOU EVER HAD AN STD?NO REVIEWED WITH PT 10/06/18 1318 BVREVIEWED WITH PT 11/15/18 1412 BVREVIEWED WITH PATIENT 12/06/18 NLJREVIEWED WITH PATIENT 03/13/19 1414 JS. HOSPITALIZATION/MAJOR DIAGNOSTIC PROCEDURE SURGERY REVIEW OF SYSTEMS REVIEWED BY: PROVIDER: CYNTHIA MORA MD . CONSTITUTIONAL: ANY CHANGE IN YOUR MEDICAL CONDITION? NO . CHILLS NO . FEVER NO . INFECTION: DO YOU HAVE NEW INFECTIONS? NO . DO YOU HAVE HISTORY OF MRSA? NO . MUSCULOSKELETAL: ANY NEW PATTERNS OF PAIN OR NUMBNESS? NO . GASTROENTEROLOGY: ANY NEW CHANGE IN BOWEL CONTROL? NO . GENITOURINARY: ANY NEW CHANGE IN BLADDER CONTROL? NO . IS THERE A CHANCE YOU COULD BE ? NO . HEMATOLOGY/LYMPH: DO YOU TAKE ANY BLOOD THINNERS? (FOR EXAMPLE- COUMADIN, PLAVIX, AGGRENOX, PLATEL, PRADAXA, OR XARELTO) NO . WHEN WAS YOUR LAST DOSE? DATE: TIME: . NEUROLOGY: HAVE YOU FALLEN IN THE PAST 12 MONTHS? NO . ANY NEW EXTREMITY NUMBNESS OR WEAKNESS? NO . CARDIOLOGY: DO YOU HAVE A PACEMAKER OR DEFIBRILLATOR? NO . RESPIRATORY: HAVE YOU BEEN SICK IN THE PAST WEEK? NO . FEVER NO . FLU LIKE SYMPTOMS? NO . COUGH NO . INTEGUMENTARY: DO YOU HAVE ANY RASHES OR OPEN SORES? NO . ALLERGIC/IMMUNO: ARE YOU ALLERGIC TO IV DYE? NO . ANY NEW ALLERGIES? NO . PSYCHIATRIC: DO YOU HAVE THOUGHTS OF HURTING YOURSELF OR SOMEONE ELSE? NO . ARE YOU ABUSED, NEGLECTED, OR IN AN UNSAFE ENVIRONMENT? NO . ENDOCRINOLOGY: ARE YOU DIABETIC? NO . OTHER: DO YOU NEED ANY PRESCRIPTIONS? NO . IF YES, PLEASE LIST: ____ . ANY NEW PROBLEMS WITH YOUR MEDICATIONS? NO . WHEN DID YOU LAST EAT? ____ . WHEN DID YOU LAST DRINK? ____ . WHAT DID YOU LAST DRINK? ____ . NAME OF PERSON DRIVING YOU HOME? ELIGIO . DO YOU HAVE ANY OTHER QUESTIONS OR CONCERNS NO ENGINE GENERATOR ASSEMBLER Debra POOL WITH PT . VITAL SIGNS WT 168.8 LBS, HT 64.75 IN, BMI 28.30 INDEX, BP 125/81 MM HG, HR 73 /MIN, RR 18 /MIN, TEMP 97.0 F, OXYGEN SAT % 99%, SAFE IN ENV? (Y/N) Y, NA INITIALS AW 1318, REVIEWED BY: [email or web address]. EXAMINATION GENERAL EXAMINATION: PATIENT IS ALERT O X 3 AND COOPERATIVE. TENDERNESS AND SEVERE PAIN OVER XIPHOID PROCESS AND CONNECTION OF STERNUM. TENDERNESS OVER THORACIC BACK AREA. PRESENCE OF BANDS OF TISSUE AND TRIGGER POINTS WITH RESTRICTION OF MOVEMENT OF THE THORACIC BACK AREA. ASSESSMENTS MYALGIA, OTHER SITE - M79.18 (PRIMARY) COSTOCHONDRITIS - M94.0 STERNAL PAIN - R07.89 PAIN IN THORACIC SPINE - M54.6 OTHER CHRONIC PAIN - G89.29 TREATMENT MYALGIA, OTHER SITE CLINICAL NOTES: WE DISCUSSED SEVERAL ISSUES WITH MS. TAO'S PAIN MANAGEMENT CASE. THE PATIENT IS A CANDIDATE FOR TRIGGER POINT INJECTIONS OR AN EPIDURAL FOR HER THORACIC BACK PAIN. HOWEVER, I WOULD LIKE TO ORDER A THORACIC SPINE MRI TO GAIN A BETTER UNDERSTANDING OF WHAT IS CAUSING THE PATIENT'S THORACIC SPINE PAIN. THE PATIENT IS ALSO HAVING ANTERIOR THORACIC PAIN, AND IS A CANDIDATE FOR A COSTOCHONDRAL BLOCK. I SPOKE WITH DR. HENDRICKS ON THE PATIENT'S CASE, REGARDING WHICH IMAGING STUDY WOULD BE APPROPRIATE FOR HER STERNUM PAIN. I WILL ORDER A STERNUM-XIPHOID PROCESS MRI WITH MARKERS/ANTERIOR CHEST WALL MRI WITH MARKERS FOR THE PATIENT. THE PATIENT'S PAIN IS MORE AROUND THE XIPHOID PROCESS AND IS ALSO ASSOCIATED WITH GASTRIC FUNCTIONALITY, THEREFORE I AM ORDERING THIS MRI TO RULE OUT ANY ISSUES AROUND THE AROUND BEFORE MOVING FORWARD WITH ANY INJECTION THERAPY. I ALSO DISCUSSED THE PATIENT'S CASE WITH DR. MAYFIELD, PATIENT'S PARTNERSHIP MARKETING MANAGER, AND HE ADVISED THAT THE PATIENT HAS REFLUX THAT CAN CAUSE SOME OF THE PAIN. DR. MAYFIELD'S OPINION WAS THAT THE PATIENT'S PAIN IS A MIX ELEMENT OF AN ESOPHAGEAL ISSUE AND PAIN OVER XIPHOID PROCESS. I HAD A LONG CONVERSATION WITH THE PATIENT AND WITH THE HELP OF A PRODUCT DEVELOPMENT ACTUARY. I WAS WITH THE PATIENT FOR MORE THAN 30 MINUTES AND MORE THAN HALF OF THAT TIME WAS SPENT DISCUSSING THE PATIENT'S CARE, PROCEDURE OPTIONS, GETTING THE OPINIONS OF OTHER PROVIDERS, AND ADDRESSING ANY QUESTIONS OR CONCERNS OF THE PATIENT. THE PATIENT WILL FOLLOW UP WITH THE NURSE PRACTITIONER IN 7 WEEKS TO GO OVER THE MRI RESULTS AND DISCUSS OPTIONS TO PROCEED WITH. INSTRUCTIONS WERE GIVEN, QUESTIONS WERE ANSWERED, PATIENT REPORTS UNDERSTANDING AND AGREES WITH THE PLAN. I, JUN WHITE, DOCUMENTED THE ABOVE INFORMATION ACTING A SCRIBE FOR DR. MORA. I HAVE REVIEWED THE ABOVE DOCUMENT, WRITTEN BY JUN SANTIZOIBJoao AND I VERIFY THAT IT IS ACCURATE. . COSTOCHONDRITIS [facility] MRI CHEST W/O FOLL [id number] STERNAL PAIN [facility] MRI CHEST W/O FOLL [id number] PAIN IN THORACIC SPINE [facility] MRI SPINE,THORACIC WITHOUT [id number] OTHER CHRONIC PAIN [facility] MRI SPINE,THORACIC WITHOUT [id number] PREVENTIVE MEDICINE PAIN CLINIC TEACHING: PROCEDURE TEACHING PT GIVEN WRITTEN AND VERBAL PRE PROCEDURE INSTRUCTION VIA PRODUCT DEVELOPMENT ACTUARY IN ROOM. PT VERBALIZES UNDERSTANDING OF ALL EDUCATION AND INSTRUCTIONS. DOMITILA RODRIGUEZ 05/24/2019 4:26:56 PM > . PROCEDURE CODES G8427 CURRENT MEDS W/DOSAGES DOCUMENTED G8730 PAIN ASSESS POS TOOL F/U PLAN DOC FA211 ESTABILISHED PATIENT [facility] CHARGE DISPOSITION & COMMUNICATION FOLLOW UP 7 WEEKS (REASON: F/UP WITH FOUNDRY HAND) ELECTRONICALLY SIGNED BY CYNTHIA MORA MD, MD ON 05/31/2019 AT 01:54 PM EST DISCLAIMER : THIS IS A VISIT SUMMARY EXTRACTED FROM THE [employer]ICALWORKS CHART. IT IS NOT A COPY OF THE [employer]ICALWORKS PROGRESS NOTE. MTDD
== END ==
LOC: M PAIN 13:00
PROVIDERS: ATTEND Anesthesiology
DX: M79.18 Myalgia, other site (principal); M94.0 Chondrocostal junction syndrome [Tietze]; R07.89 Other chest pain; M54.6 Pain in thoracic spine; G89.29 Other chronic pain; E03.9 Hypothyroidism, unspecified; Z87.891 Personal history of nicotine dependence; Z79.899 Other long term (current) drug therapy

== ENCOUNTER → 2019-06-04 | Outpatient (CLI) | payer MEDICARE, MEDICAID ==
[~2019-06-04] MED LIST changes: +PROHANCE 279.3MG/ML 15ML VIAL (A9576) As Ordered ONE
--- NOTE | 2019-06-05 08:12 | REP ---
BILATERAL BREAST MRI STUDY WITHOUT AND WITH IV GADOLINIUM: HISTORY: Breast cancer screening. High risk patient. [facility] breast cancer risk assessment score 20.8%. History of cyst on right breast. Comparison mammography and right breast sonography October 05, 2018. TECHNIQUE: Three [facility] MRI imaging was performed with a dedicated breast coil. Axial, coronal, and sagittal T1 and T2-weighted scans were obtained with and without fat saturation in the usual fashion. The study includes dynamically acquired post gadolinium enhanced imaging subtraction imaging. Maximal intensity projection and multiplanar re-formation imaging is included as well. The study was interpreted with the aid of GreenButtonD, an FDA approved computer-aided detection (CAD) software program, on a dedicated breast MRI work station. The gadolinium enhancement dose is 14 mL of intravenous ProHance. FINDINGS: There is a marked pattern of fibroglandular tissue bilaterally in a pattern which is symmetrical. There is no evidence of axillary lymphadenopathy. In the superomedial quadrant of the right breast, there is a low T1, homogeneously high T2 signal intensity nonenhancing simple cyst 2.0 cm in greatest diameter. This corresponds with a cyst seen on recent mammography and ultrasound. There are scattered small subcentimeter cysts bilaterally. Pre- and postcontrast high-resolution T1- and T2-weighted scans show no suspicious morphologic abnormality on either side. There is a moderate pattern of background parenchymal enhancement. There is a 5 mm focus of enhancement and washout in the right breast anterior third with nonenhancing areas felt to be most consistent with a small fibroadenoma. Dynamically acquired sequential post contrast images show no other focus of enhancement washout in either breast to suggest malignancy. Subtraction images show no additional abnormality. IMPRESSION: BIRADS category 3 probably benign findings. 5 mm focus in the right breast suggestive of fibroadenoma. 6-month followup MRI study recommended to document stability over time. Electronically Signed by Iron Lockhart MD 06/05/2019 10:45 A
== END ==
LOC: M RAD 15:47
PROVIDERS: ATTEND Family Medicine
DX: Z12.39 Encounter for other screening for malignant neoplasm of breast (principal); Z91.89 Other specified personal risk factors, not elsewhere classified; N60.11 Diffuse cystic mastopathy of right breast; N60.12 Diffuse cystic mastopathy of left breast
CPT/HCPCS: A9576; C8908

== ENCOUNTER → 2019-06-12 | Outpatient (CLI) | payer MEDICARE, MEDICAID ==
--- NOTE | 2019-06-12 18:18 | REPVR ---
PROCEDURE INFORMATION: Exam: MR Thoracic Spine Without Contrast Exam date and time: 06/12/2019 5:07 PM Age: 43 years old Clinical indication: Pain in thoracic spine; With radiculopathy; Bilateral; Patient HX: PT states increase pain over time no recent injury; Additional info: Costochondritis, pain in t spine TECHNIQUE: Imaging protocol: Multiplanar magnetic resonance images of the thoracic spine without intravenous contrast. COMPARISON: XA THORACIC AORTAGRAM 12/05/2013 10:01 AM FINDINGS: Vertebrae: No compression fracture in the thoracic spine. No thoracic spinal canal stenosis. Spinal cord: No abnormal signal in the thoracic spinal cord. T9-T10: There is a minimally bulging annulus to the left of midline with a small annular tear at the T9-10 level that does not cause spinal canal stenosis. No disc herniation is seen in thoracic spine. Soft tissues: Hiatal hernia. IMPRESSION: There is no spinal canal stenosis in the thoracic spine. There is no compression of thoracic spinal cord. There is no significant degeneration although there is a minimally bulging annulus at T9-10 level it does not cause neural compromise. Electronically signed by: Shabana Garcia On 06/12/2019 18:18:46 PM
--- NOTE | 2019-06-12 18:28 | REP ---
MRI study of the chest wall anterior costal margin without contrast: History: Costochondritis. Pain. Pain in the thoracic spine. Technique: Axial, coronal and sagittal T1 and T2-weighted scans were obtained with and without fat saturation. MRI findings: Cortical and medullary bone signal intensity are normal in the manubrium, sternum, and xyphoid. Costal cartilage signal intensity is normal on T1 and T2-weighted scans. There is no costal cartilage fracture or displacement visible. No mass is seen. No internal mammary adenopathy is appreciated. There is a cyst in the right breast soft tissue superiorly at approximately 12 o'clock position measuring 17 mm in greatest diameter. There is a smaller oval shaped cyst inferiorly in the left breast measuring 8 mm in diameter. No soft tissue mass is seen along the chest wall or within either breast. Low T1, low T2 signal intensity is seen within the esophagus consistent with an air distended thoracic esophagus during the time of the study. Question reflux. No other mediastinal abnormalities observed. Impression: No evidence of mass or bony or cartilage destructive lesion. Incidental simple cysts in the adjacent breast soft tissues. Air filled esophagus. Electronically Signed by Iron Lockhart MD 06/13/2019 07:27 P
== END ==
LOC: M RAD 14:46
PROVIDERS: ATTEND Anesthesiology
DX: M54.6 Pain in thoracic spine (principal); G89.29 Other chronic pain

== ENCOUNTER → 2019-07-11 | Outpatient (CLI) | payer MEDICARE, MEDICAID ==
[~2019-07-11] MED LIST changes: -PROHANCE 279.3MG/ML 15ML VIAL (A9576) As Ordered ONE
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
== END ==
LOC: M PAIN 14:15
PROVIDERS: ATTEND Family Medicine
DX: M54.6 Pain in thoracic spine (principal); G89.29 Other chronic pain; E03.9 Hypothyroidism, unspecified; M79.10 Myalgia, unspecified site; Z87.891 Personal history of nicotine dependence; Z79.899 Other long term (current) drug therapy

== ENCOUNTER → 2019-08-16 | Outpatient (CLI) | payer MEDICARE, MEDICAID ==
[2019-08-16 15:24] VITALS: BP 134/82
--- NOTE | 2019-08-16 17:57 | REP ---
FOCUSED RIGHT BREAST SONOGRAPHY: HISTORY: Ultrasound guidance. Cyst aspiration. FINDINGS: Sonographic guidance is provided to Dr. Goncalves who performed ultrasound-guided cyst aspiration procedure.
--- NOTE | 2019-08-19 10:55 | ROOPDOC ---
[facility] Report Of Operation Report of Operation DATE OF PROCEDURE: 08/19/19 PREPROCEDURE DIAGNOSES: painful right breast cyst POSTPROCEDURE DIAGNOSES: painful right breast cyst PROCEDURE: ultrasound guided aspiration of the right breast cyst SURGEON: Anne Montesinos FLOOR SPACE ALLOCATOR: ANESTHESIA: local ESTIMATED BLOOD LOSS: Approximately 1 mL. COMPLICATIONS: none REMARKS: right breast cyst completely aspirated DESCRIPTION OF PROCEDURE: Lidocaine 1% LOT [id number] Expiration: May 2020 Sodium Bicarbonate 8.4% LOT [id number] Expiration: September 2020 Informed consent was obtained. The most common risk and possible complications including bleeding, hematoma, bruising, infection, injury to surrounding structu res were explained to the patient and she expressed understanding. Patient was taken to the procedure room and placed on the bed in the supine position with the right upper extremity placed along the body. Appropriate time out was done stating patients name, date of , and the procedure to be performed. The right breast was prepped and draped in the usual fashion. The ultrasound was used to confirm the location of the three painful cysts in the right breast at 1:00 5 centimeters from the nipple. Plain Lidocaine 1% and 8.4% sodium bicarbonate 10:1 mix was used to numb the skin, and tissues along the anticipated aspiration tract. 18 G needle was used to aspirate the cyst. Aspirated fluid was serous and it was discarded. Cyst was completely collapsed and images were captured. Manual pressure over the cyst aspiration site and tract was held. No bleeding was noted upon removal of the pressure. Patient tolerated procedure well. Discharge instructions were discussed with the patient and she expressed understanding. ANNE MONTESINOS DO August 19, 2019 10:55
== END ==
LOC: M WHCPRO 14:18
PROVIDERS: ATTEND Surgery
DX: N60.01 Solitary cyst of right breast (principal); N64.4 Mastodynia

== ENCOUNTER → 2020-04-08 | Outpatient (CLI) | payer MEDICARE, MEDICAID ==
[~2020-04-08] MED LIST changes: +PANT40TA29; -PANT40TA3; +PROHANCE 279.3MG/ML 15ML VIAL As Ordered ONE; +PROHANCE 279.3MG/ML 5ML VIAL As Ordered ONE
--- NOTE | 2020-04-09 10:04 | REP ---
INDICATION: HIGH RISK FOR BREAST CA. COMPARISON: MRI 06/04/2019. TECHNIQUE: Three Danitza MRI imaging was performed with a dedicated breast coil. Axial, coronal, and sagittal T1 and T2 weighted scans were obtained with and without fat saturation in the usual fashion. The study includes dynamically acquired post gadolinium-enhanced imaging with image subtraction. Maximum intensity projection and multi planar reformation imaging is included as well. This study is interpreted with the aid of Media Redefined, an FDA approved computer aided detection (CAD) software program, on a dedicated breast MRI workstation. The gadolinium enhancement dose is 16 mL of intravenous ProHance. FINDINGS: There is marked fibroglandular tissue present bilaterally in a fairly symmetrical pattern. Multiple subcentimeter cysts are seen scattered throughout both breasts. A previously noted dominant cyst in the upper inner right breast has resolved. A cyst at 6 o'clock left breast mildly increased in size measuring 1 cm in diameter. There is moderate background parenchymal enhancement in a heterogeneous pattern. Once again in the anterior right breast there is a 5 mm enhancing nodule which is completely unchanged when compared to the prior study. No other discrete enhancing mass or morphologic abnormalities seen bilaterally. There is no axillary adenopathy. IMPRESSION: BI-RADS category 3 probably benign. Stable 5 mm nodule anteriorly in the right breast, likely representing a fibroadenoma. No new enhancing mass or morphologic abnormality. Recommend follow-up MRI in 1 year. <Electronically signed by Twan Salcedo > 04/09/20 1000
== END ==
LOC: M RAD 15:05
PROVIDERS: ATTEND Surgery
DX: N60.01 Solitary cyst of right breast (principal); N60.02 Solitary cyst of left breast; Z91.89 Other specified personal risk factors, not elsewhere classified
CPT/HCPCS: A9576; C8908

== ENCOUNTER → 2020-09-09 | Outpatient (CLI) | payer MEDICARE, MEDICAID ==
[~2020-09-09] MED LIST changes: -PROHANCE 279.3MG/ML 15ML VIAL As Ordered ONE; -PROHANCE 279.3MG/ML 5ML VIAL As Ordered ONE
[2020-09-09 18:30] LABS: BASO # 0.1 10^3/uL (0.0-0.2); BASO % 0.5 % (0.0-1.0); EOS # 0.2 10^3/uL (0.0-0.5); EOS % 1.5 % (0.0-3.0); HEMATOCRIT 41.8 % (36.0-47.0); HEMOGLOBIN 13.5 g/dl (12.0-15.5); LYMPH # 1.9 10^3/uL (1.5-5.0); MEAN CORPUSCULAR HEMOGLOBIN 29.1 pg (27.0-33.0); MEAN CORPUSCULAR HGB CONC 32.3 g/dl (32.0-36.5); MEAN CORPUSCULAR VOLUME 90.1 fl (80.0-96.0); MONO # 0.6 10^3/uL (0.0-0.8); MONO % 5.7 % (2.0-8.0); NEUTROPHILS # 6.9 10^3/uL (1.5-8.5); NEUTROPHILS % 71.6 % (36.0-66.0); PLATELET COUNT, AUTOMATED 369 10^3/uL (150-450); RED BLOOD COUNT 4.64 10^6/uL (4.00-5.40); WHITE BLOOD COUNT 9.7 10^3/uL (4.0-10.0)
[2020-09-09 19:05] LABS: ALT/SGPT 17 U/L (12-78); BILIRUBIN,TOTAL 0.5 MG/DL (0.2-1.0); BLOOD UREA NITROGEN 7 MG/DL (7-18); CALCIUM LEVEL 9.5 MG/DL (8.5-10.1); CARBON DIOXIDE LEVEL 25 MEQ/L (21-32); CHLORIDE LEVEL 107 MEQ/L (98-107); CHOLESTEROL LEVEL 211 MG/DL (<200); CHOLESTEROL RISK RATIO 4.057 (<5); CREATININE FOR GFR 0.81 MG/DL (0.55-1.30); FREE T4 1.31 NG/DL (0.76-1.46); GLOMERULAR FILTRATION RATE > 60.0 (>58); GLUCOSE, FASTING 86 MG/DL (70-100); HDL CHOLESTEROL 52 MG/DL (>40); LDL CHOLESTEROL 138 MG/DL (<100); NON-HDL-C 159 MG/DL; POTASSIUM SERUM 3.8 MEQ/L (3.5-5.1); SODIUM LEVEL 139 MEQ/L (136-145); THYROID STIMULATING HORMONE 0.648 uIU/ML (0.358-3.740); TOTAL PROTEIN 7.5 GM/DL (6.4-8.2); TRIGLYCERIDES LEVEL 107 MG/DL (<150)
[2020-09-09 19:42] LABS: HEMOGLOBIN A1c 4.4 %
== END ==
LOC: M LAB 17:01
PROVIDERS: ATTEND Nurse Practitioner Family
DX: E03.9 Hypothyroidism, unspecified (principal); E78.2 Mixed hyperlipidemia; Z13.1 Encounter for screening for diabetes mellitus; Z79.899 Other long term (current) drug therapy
CPT/HCPCS: 36415; 80053; 80061; 83036; 84439; 84443; 85025; G0463

== ENCOUNTER → 2020-09-16 | Outpatient (CLI) | payer MEDICARE, MEDICAID ==
--- NOTE | 2020-09-16 16:00 | REPMRS ---
Patient History The patient states she has not had a clinical breast exam in over a year. Patient is nulliparous. Family history of breast cancer at age 45 in paternal aunt, colorectal cancer in paternal aunt, prostate cancer at age 55 in father. Took unspecified hormones for 18 years. Pt is deaf, updated history to my best ability. Patient states no breast complaints today. Increase in weight since last mammogram, unsure how much. Digital Woman Screen Mammo: September 16, 2020 - Exam #: [id number] Bilateral CC and MLO view(s) were taken. Technologist: RT Galileo Prior study comparison: October 05, 2018, digital mammo diagnostic bilateral, performed at [facility]. FINDINGS: The breast tissue is heterogeneously dense. This may lower the sensitivity of mammography. Screening. Digital screening (2D) mammography was performed bilaterally in the CC and MLO projections. Additionally, breast tomosynthesis (3D mammography) was performed bilaterally in the CC and MLO projections. Todays exam was compared to the prior exams. By history, the patient has no complaints of a palpable breast abnormality or other significant breast complaints. The breasts are unchanged in size and shape.Once again, dense heterogenous fibroglandular elements are seen bilaterally in a stable appearing pattern but to such a degree that the sensitivity of the mammogram in detecting cancer is decreased. There are no zaid-soft tissue densities or spiculated masses. There is no internal architectural distortion. Calcifications are again seen in the breast/breasts. Some of these are in groups but no one group appears more suspicious than any other. There are no suspicious zaid-calcific clusters. Skin thickening or nipple retraction is not present. IMPRESSION: BI-RADS Category 2- Benign Findings. There is no evidence of malignant alteration of the breasts. Followup examination recommended in one year. The Volpara volumetric breast density category is C, the breasts are heterogenously dense which may obscure small masses. This mammogram was read with the assistance of eMithilaHaat,an FDA approved computer aided detection system for mammography. The lifetime Tyrer-Cuzick score is 20.3 % Negative x-ray reports should not delay surgical consultation if a dominant or clinically suspicious mass is present. Due to the density of the breasts, MRI/whole breast screening ultrasound is warranted. Not all breast cancers can be identified by mammography. Therefore, we recommend that you continue to perform regular breast self-examination and physical examination and then promptly contact your physician of any concerns or changes. Adenosis and dense breasts may obscure an underlying neoplasm. Assessment: BI-RADS/ACR category 2 mammogram. Benign Findings. Recommendation Routine screening mammogram of both breasts in 1 year. Electronically Signed By: Dayton Maguire DO 09/16/20 1600
== END ==
LOC: M WHC 14:14
PROVIDERS: ATTEND Surgery
DX: Z12.31 Encounter for screening mammogram for malignant neoplasm of breast (principal); Z91.89 Other specified personal risk factors, not elsewhere classified; Z80.3 Family history of malignant neoplasm of breast; Z80.8 Family history of malignant neoplasm of other organs or systems; H91.3 Deaf nonspeaking, not elsewhere classified

== ENCOUNTER → 2021-04-16 | Outpatient (CLI) | payer MEDICARE, MEDICAID ==
[~2021-04-16] MED LIST changes: +PROHANCE 279.3MG/ML 15ML VIAL As Ordered ONE; +PROHANCE 279.3MG/ML 5ML VIAL As Ordered ONE
--- NOTE | 2021-04-20 09:00 | REP ---
INDICATION: HIGH RISK FOR BREAST CA, FIBROADENOMA RT BREAST. COMPARISON: Mammogram 09/16/2020, MRI 04/08/2020. TECHNIQUE: Three Danitza MRI imaging was performed with a dedicated breast coil. Axial, coronal, and sagittal T1 and T2 weighted scans were obtained with and without fat saturation in the usual fashion. The study includes dynamically acquired post gadolinium-enhanced imaging with image subtraction. Maximum intensity projection and multi planar reformation imaging is included as well. This study is interpreted with the aid of Vendobots, an FDA approved computer aided detection (CAD) software program, on a dedicated breast MRI workstation. The gadolinium enhancement dose is 17 mL of intravenous ProHance. FINDINGS: There is moderate fibroglandular tissue bilaterally. There is no axillary adenopathy. There are multiple subcentimeter cysts bilaterally. There is a dominant cyst in the 6 o'clock region of the left breast measuring 1.3 cm in diameter. There is moderate background parenchymal enhancement. There is a stable 5 mm fibroadenoma in the superior anterior right breast. There is no suspicious enhancing mass or morphologic abnormality. IMPRESSION: BI-RADS category 2, benign bilateral breast MRI. Stable 5 mm fibroadenoma right breast. Scattered bilateral benign cysts. No suspicious enhancing mass or morphologic abnormality. Yearly supplemental screening MRI of the breasts is recommended for patients with an elevated lifetime risk of breast cancer of 20% or greater, in addition to annual screening mammography, staggered every 6 months. <Electronically signed by Twan Salcedo > 04/20/21 0896
== END ==
LOC: M RAD 16:20
PROVIDERS: ATTEND Surgery
DX: Z91.89 Other specified personal risk factors, not elsewhere classified (principal); D24.1 Benign neoplasm of right breast
CPT/HCPCS: A9576; C8908

== ENCOUNTER → 2021-04-24 | Outpatient (CLI) | payer MEDICARE, MEDICAID ==
[~2021-04-24] MED LIST changes: -PROHANCE 279.3MG/ML 15ML VIAL As Ordered ONE; -PROHANCE 279.3MG/ML 5ML VIAL As Ordered ONE
[2021-04-24 15:49] LABS: BASO % 0.4 % (0.0-1.0); EOS # 0.1 10^3/uL (0.0-0.5); EOS % 1.2 % (0.0-3.0); HEMATOCRIT 39.2 % (36.0-47.0); HEMOGLOBIN 12.5 g/dl (12.0-15.5); LYMPH # 1.4 10^3/uL (1.5-5.0); LYMPH % 13.6 % (24.0-44.0); MEAN CORPUSCULAR HEMOGLOBIN 28.5 pg (27.0-33.0); MEAN CORPUSCULAR HGB CONC 31.9 g/dl (32.0-36.5); MEAN CORPUSCULAR VOLUME 89.5 fl (80.0-96.0); MONO # 0.5 10^3/uL (0.0-0.8); MONO % 4.6 % (2.0-8.0); NEUTROPHILS # 7.9 10^3/uL (1.5-8.5); NEUTROPHILS % 79.6 % (36.0-66.0); PLATELET COUNT, AUTOMATED 252 10^3/uL (150-450); RED BLOOD COUNT 4.38 10^6/uL (4.00-5.40)
[2021-04-24 16:15] LABS: BLOOD UREA NITROGEN 8 MG/DL (7-18); CALCIUM LEVEL 8.9 MG/DL (8.5-10.1); CARBON DIOXIDE LEVEL 27 MEQ/L (21-32); CHLORIDE LEVEL 109 MEQ/L (98-107); CREATININE FOR GFR 0.83 MG/DL (0.55-1.30); GLOMERULAR FILTRATION RATE > 60.0 (>58); GLUCOSE, FASTING 89 MG/DL (70-100); POTASSIUM SERUM 3.7 MEQ/L (3.5-5.1); SODIUM LEVEL 142 MEQ/L (136-145)
[2021-04-24 16:16] LABS: ALBUMIN 3.7 GM/DL (3.2-5.2); ALT/SGPT 41 U/L (12-78); BILIRUBIN,TOTAL 0.7 MG/DL (0.2-1.0); CHOLESTEROL LEVEL 207 MG/DL (<200); FREE T4 1.35 NG/DL (0.76-1.46); HDL CHOLESTEROL 46 MG/DL (>40); LDL CHOLESTEROL 132 MG/DL (<100); NON-HDL-C 161 MG/DL; THYROID STIMULATING HORMONE 0.199 uIU/ML (0.358-3.740); TOTAL PROTEIN 7.1 GM/DL (6.4-8.2); TRIGLYCERIDES LEVEL 143 MG/DL (<150)
== END ==
LOC: M LAB 15:02
PROVIDERS: ATTEND Nurse Practitioner Family
DX: K21.9 Gastro-esophageal reflux disease without esophagitis (principal); E03.9 Hypothyroidism, unspecified; E78.2 Mixed hyperlipidemia

== ENCOUNTER → 2021-05-06 | Outpatient (CLI) | payer MEDICARE, MEDICAID | LOC: M PAIN 14:00 | PROVIDERS: ATTEND Anesthesiology | DX: M25.551 Pain in right hip (principal); M51.16 Intervertebral disc disorders with radiculopathy, lumbar region; E03.9 Hypothyroidism, unspecified; H91.93 Unspecified hearing loss, bilateral; H40.9 Unspecified glaucoma; M79.10 Myalgia, unspecified site; K59.00 Constipation, unspecified; R13.10 Dysphagia, unspecified; M34.1 CR(E)ST syndrome; M16.11 Unilateral primary osteoarthritis, right hip; Z87.891 Personal history of nicotine dependence; Z79.899 Other long term (current) drug therapy; Z88.8 Allergy status to other drugs, medicaments and biological substances ==

== ENCOUNTER 2021-06-05 13:30 | Outpatient (RCR) | payer MEDICARE, MEDICAID | END 2021-06-15 | LOC: M PT 13:30 | PROVIDERS: ATTEND Otolaryngology | DX: M26.602 Left temporomandibular joint disorder, unspecified (principal) ==

== ENCOUNTER → 2021-06-23 | Outpatient (CLI) | payer MEDICARE, MEDICAID | LOC: M PLAIMG 10:19 | PROVIDERS: ATTEND Anesthesiology | DX: M51.16 Intervertebral disc disorders with radiculopathy, lumbar region (principal); M25.551 Pain in right hip; N83.201 Unspecified ovarian cyst, right side ==

== ENCOUNTER 2021-07-10 12:45 | Outpatient (RCR) | payer MEDICARE, MEDICAID | END 2021-07-16 | LOC: M PT 12:45 | PROVIDERS: ATTEND Otolaryngology | DX: M26.602 Left temporomandibular joint disorder, unspecified (principal) ==

== ENCOUNTER → 2021-08-14 | Outpatient (CLI) | payer MEDICARE, MEDICAID | LOC: M PAIN 14:15 | PROVIDERS: ATTEND Nurse Practitioner Family | DX: M25.551 Pain in right hip (principal); M51.16 Intervertebral disc disorders with radiculopathy, lumbar region; E03.9 Hypothyroidism, unspecified; H40.9 Unspecified glaucoma; H91.93 Unspecified hearing loss, bilateral; M16.11 Unilateral primary osteoarthritis, right hip; M79.10 Myalgia, unspecified site; Z87.891 Personal history of nicotine dependence; K59.00 Constipation, unspecified; R13.10 Dysphagia, unspecified; M34.1 CR(E)ST syndrome; Z79.899 Other long term (current) drug therapy; Z88.8 Allergy status to other drugs, medicaments and biological substances ==

== ENCOUNTER → 2021-09-16 | Outpatient (CLI) | payer MEDICARE, MEDICAID | LOC: M WHC 14:56 | PROVIDERS: ATTEND Nurse Practitioner Women's Health | DX: Z12.31 Encounter for screening mammogram for malignant neoplasm of breast (principal); Z91.89 Other specified personal risk factors, not elsewhere classified; Z80.3 Family history of malignant neoplasm of breast; Z80.0 Family history of malignant neoplasm of digestive organs; Z80.42 Family history of malignant neoplasm of prostate; Z92.29 Personal history of other drug therapy ==

== ENCOUNTER → 2021-10-05 | Outpatient (CLI) | payer MEDICARE, MEDICAID | LOC: M PAIN 14:00 | PROVIDERS: ATTEND Nurse Practitioner Family | DX: M25.551 Pain in right hip (principal); M51.16 Intervertebral disc disorders with radiculopathy, lumbar region; E03.9 Hypothyroidism, unspecified; H40.9 Unspecified glaucoma; H91.93 Unspecified hearing loss, bilateral; M34.1 CR(E)ST syndrome; M16.11 Unilateral primary osteoarthritis, right hip; M79.10 Myalgia, unspecified site; K59.00 Constipation, unspecified; R13.10 Dysphagia, unspecified; Z87.891 Personal history of nicotine dependence; Z79.899 Other long term (current) drug therapy; Z88.8 Allergy status to other drugs, medicaments and biological substances ==

== ENCOUNTER 2021-10-08 14:17 | Outpatient (RCR) | payer MEDICARE, MEDICAID | END 2021-10-15 | LOC: M PT 14:17 | PROVIDERS: ATTEND Orthopaedic Surgery | DX: S76.011A Strain of muscle, fascia and tendon of right hip, initial encounter (principal); M47.816 Spondylosis without myelopathy or radiculopathy, lumbar region ==

== ENCOUNTER 2021-10-29 13:00 | Outpatient (RCR) | payer MEDICARE, MEDICAID | END 2021-11-15 | LOC: M PT 13:00 | PROVIDERS: ATTEND Orthopaedic Surgery | DX: S76.011A Strain of muscle, fascia and tendon of right hip, initial encounter (principal); M47.816 Spondylosis without myelopathy or radiculopathy, lumbar region ==

== ENCOUNTER → 2021-11-06 | Outpatient (CLI) | payer MEDICARE, MEDICAID ==
[2021-11-06 18:29] LABS: BASO # 0.1 10^3/uL (0.0-0.2); BASO % 0.4 % (0.0-1.0); EOS % 0.3 % (0.0-3.0); HEMATOCRIT 45.2 % (36.0-47.0); HEMOGLOBIN 14.3 g/dl (12.0-15.5); LYMPH # 1.8 10^3/uL (1.5-5.0); LYMPH % 15.3 % (24.0-44.0); MEAN CORPUSCULAR HEMOGLOBIN 28.4 pg (27.0-33.0); MEAN CORPUSCULAR HGB CONC 31.6 g/dl (32.0-36.5); MEAN CORPUSCULAR VOLUME 89.7 fl (80.0-96.0); MONO # 0.6 10^3/uL (0.0-0.8); NEUTROPHILS % 78.7 % (36.0-66.0); PLATELET COUNT, AUTOMATED 320 10^3/uL (150-450); RED BLOOD COUNT 5.04 10^6/uL (4.00-5.40); WHITE BLOOD COUNT 11.4 10^3/uL (4.0-10.0)
[2021-11-06 18:51] LABS: APPEARANCE, URINE HAZY (CLEAR); BACTERIA, URINE AUTO NEGATIVE (NEGATIVE); BILIRUBIN, URINE AUTO NEGATIVE (NEGATIVE); BLOOD, URINE BLOOD 1+ (NEGATIVE); COLOR, URINE YELLOW (YELLOW); GLUCOSE, URINE (UA) AUTO NEGATIVE (NEGATIVE); KETONE, URINE AUTO 1+ mg/dL (NEGATIVE); LEUKOCYTE ESTERASE, URINE AUTO NEGATIVE (NEGATIVE); MUCUS, URINE SMALL (NEGATIVE); NITRITE, URINE AUTO NEGATIVE (NEGATIVE); PROTEIN, URINE AUTO NEGATIVE (NEGATIVE); RBC, URINE AUTO 1 /HPF (0-3); SPECIFIC GRAVITY URINE AUTO 1.021 (1.002-1.035); SQUAMOUS EPITHELIAL CELL UR AU 4 /HPF (0-6); UROBILINOGEN, URINE AUTO 0.2 mg/dL (0.0-2.0); WBC, URINE AUTO 2 /HPF (0-3)
[2021-11-06 19:33] LABS: BILIRUBIN,TOTAL 0.8 MG/DL (0.2-1.0); CALCIUM LEVEL 9.2 MG/DL (8.5-10.1); CREATININE FOR GFR 1.06 MG/DL (0.55-1.30); FREE T4 1.38 NG/DL (0.76-1.46); GLOMERULAR FILTRATION RATE 59.2 (>58); POTASSIUM SERUM 4.1 MEQ/L (3.5-5.1); THYROID STIMULATING HORMONE 0.326 uIU/ML (0.358-3.740); TOTAL PROTEIN 7.6 GM/DL (6.4-8.2)
== END ==
LOC: M LAB 16:57
PROVIDERS: ATTEND Student in an Organized Health Care Education/Training Program
DX: R53.83 Other fatigue (principal); R39.89 Other symptoms and signs involving the genitourinary system

== ENCOUNTER 2021-12-09 14:30 | Outpatient (RCR) | payer MEDICARE, MEDICAID | END 2021-12-16 | LOC: M PT 14:30 | PROVIDERS: ATTEND Orthopaedic Surgery | DX: S76.011D Strain of muscle, fascia and tendon of right hip, subsequent encounter (principal); M47.816 Spondylosis without myelopathy or radiculopathy, lumbar region ==

== ENCOUNTER → 2021-12-16 | Outpatient (REF) | payer MEDICARE ==
[2021-12-17 18:25] LABS: APPEARANCE, URINE MANUAL CLOUDY (CLEAR); COLOR, URINE MANUAL YELLOW (YELLOW)
[2021-12-17 18:26] LABS: SPECIFIC GRAVITY,URINE MANUAL 1.025 (1.002-1.035)
[2021-12-17 18:28] LABS: BILIRUBIN, URINE MANUAL NEGATIVE (NEGATIVE); GLUCOSE, URINE (UA) MANUAL NEGATIVE (NEGATIVE); KETONE, URINE MANUAL NEGATIVE (NEGATIVE); NITRITE, URINE MANUAL NEGATIVE (NEGATIVE); PROTEIN, URINE MANUAL 1+ mg/dL (NEGATIVE); UROBILINOGEN, URINE MANUAL NORMAL (NORMAL)
[2021-12-17 18:29] LABS: BLOOD URINE MANUAL POSITIVE (NEGATIVE); LEUKOCYTE ESTERASE, URINE MAN POSITIVE (NEGATIVE)
[2021-12-17 18:43] LABS: AMORPHOUS SEDIMENT, URINE LARGE AMOUNT (NEGATIVE); BACTERIA, URINE NONE SEEN; RBC, URINE 0-1 /hpf (0-3); SQUAMOUS EPITHELIAL CELL URINE SMALL AMOUNT /hpf (SMALL AMT); WBC, URINE 0-1 /hpf (0-3)
[2021-12-17 18:45] LABS: HYALINE CAST, URINE NONE SEEN /lpf (0-1)
== END ==
LOC: M SFHCLERA 16:55
PROVIDERS: ATTEND Student in an Organized Health Care Education/Training Program
DX: R82.90 Unspecified abnormal findings in urine (principal)

== ENCOUNTER → 2022-01-06 | Outpatient (REF) | payer MEDICARE, MEDICAID ==
[2022-01-06 15:33] LABS: APPEARANCE, URINE MANUAL CLEAR (CLEAR); COLOR, URINE MANUAL YELLOW (YELLOW); PROTEIN, URINE MANUAL TRACE mg/dL (NEGATIVE)
[2022-01-06 15:34] LABS: BILIRUBIN, URINE MANUAL 1+ (NEGATIVE); BLOOD URINE MANUAL TRACE (NEGATIVE); GLUCOSE, URINE (UA) MANUAL NEGATIVE (NEGATIVE); KETONE, URINE MANUAL NEGATIVE (NEGATIVE); LEUKOCYTE ESTERASE, URINE MAN TRACE (NEGATIVE); NITRITE, URINE MANUAL NEGATIVE (NEGATIVE); UROBILINOGEN, URINE MANUAL NORMAL (NORMAL)
[2022-01-06 16:09] LABS: AMORPHOUS SEDIMENT, URINE SMALL AMOUNT (NEGATIVE); BACTERIA, URINE SMALL AMOUNT; HYALINE CAST, URINE 0-1 /lpf (0-1); MUCUS, URINE SMALL AMOUNT (NEGATIVE); RENAL EPITHELIAL CELLS, URINE SMALL AMOUNT /hpf; SQUAMOUS EPITHELIAL CELL URINE SMALL AMOUNT /hpf (SMALL AMT)
== END ==
LOC: M SMT 15:13
PROVIDERS: ATTEND Physician Assistant
DX: N39.0 Urinary tract infection, site not specified (principal)

== ENCOUNTER 2022-01-12 15:14 | Outpatient (RCR) | payer MEDICARE, MEDICAID | END 2022-01-15 | LOC: M PT 15:14 | PROVIDERS: ATTEND Orthopaedic Surgery | DX: S76.011D Strain of muscle, fascia and tendon of right hip, subsequent encounter (principal); M47.816 Spondylosis without myelopathy or radiculopathy, lumbar region ==

== ENCOUNTER → 2022-01-26 | Outpatient (CLI) | payer MEDICARE, MEDICAID | LOC: M PAIN 14:45 | PROVIDERS: ATTEND Nurse Practitioner Family | DX: M25.551 Pain in right hip (principal); M51.16 Intervertebral disc disorders with radiculopathy, lumbar region; G89.29 Other chronic pain; E03.9 Hypothyroidism, unspecified; M79.10 Myalgia, unspecified site; Z87.891 Personal history of nicotine dependence; Z88.8 Allergy status to other drugs, medicaments and biological substances; Z79.890 Hormone replacement therapy; Z79.899 Other long term (current) drug therapy ==

== ENCOUNTER → 2022-02-03 | Outpatient (REF) | payer MEDICARE, MEDICAID ==
[2022-02-03 20:00] LABS: APPEARANCE, URINE MANUAL CLEAR (CLEAR); COLOR, URINE MANUAL YELLOW (YELLOW)
[2022-02-03 20:01] LABS: BILIRUBIN, URINE MANUAL NEGATIVE (NEGATIVE); BLOOD URINE MANUAL TRACE (NEGATIVE); GLUCOSE, URINE (UA) MANUAL NEGATIVE (NEGATIVE); KETONE, URINE MANUAL NEGATIVE (NEGATIVE); LEUKOCYTE ESTERASE, URINE MAN NEGATIVE (NEGATIVE); NITRITE, URINE MANUAL NEGATIVE (NEGATIVE); PROTEIN, URINE MANUAL NEGATIVE (NEGATIVE); UROBILINOGEN, URINE MANUAL NORMAL (NORMAL)
[2022-02-03 20:48] LABS: RBC, URINE 0-1 /hpf (0-3); SQUAMOUS EPITHELIAL CELL URINE SMALL AMOUNT /hpf (SMALL AMT)
[2022-02-03 20:49] LABS: BACTERIA, URINE SMALL AMOUNT
== END ==
LOC: M SMT 17:10
PROVIDERS: ATTEND Physician Assistant
DX: N39.0 Urinary tract infection, site not specified (principal)

== ENCOUNTER 2022-02-10 14:29 | Outpatient (RCR) | payer MEDICARE, MEDICAID | END 2022-02-15 | LOC: M PT 14:29 | PROVIDERS: ATTEND Orthopaedic Surgery | DX: S76.011A Strain of muscle, fascia and tendon of right hip, initial encounter (principal); M47.816 Spondylosis without myelopathy or radiculopathy, lumbar region ==

== ENCOUNTER 2022-03-16 15:15 | Outpatient (RCR) | payer MEDICARE, MEDICAID | END 2022-03-17 | LOC: M PT 15:15 | PROVIDERS: ATTEND Orthopaedic Surgery | DX: S76.011A Strain of muscle, fascia and tendon of right hip, initial encounter (principal); X58.XXXA Exposure to other specified factors, initial encounter; Y92.9 Unspecified place or not applicable; Y93.9 Activity, unspecified; Y99.9 Unspecified external cause status ==

== ENCOUNTER → 2022-03-29 | Outpatient (CLI) | payer MEDICARE, MEDICAID | LOC: M PAIN 13:45 | PROVIDERS: ATTEND Nurse Practitioner Family | DX: M25.551 Pain in right hip (principal); M51.16 Intervertebral disc disorders with radiculopathy, lumbar region; G89.29 Other chronic pain; E03.9 Hypothyroidism, unspecified; M79.10 Myalgia, unspecified site; Z87.891 Personal history of nicotine dependence; Z88.8 Allergy status to other drugs, medicaments and biological substances; Z79.899 Other long term (current) drug therapy ==

== ENCOUNTER → 2022-04-07 | Outpatient (CLI) | payer MEDICARE, MEDICAID | LOC: M SLEEP 20:00 | PROVIDERS: ATTEND Physician Assistant | DX: R40.0 Somnolence (principal) ==

== ENCOUNTER → 2022-04-28 | Outpatient (CLI) | payer MEDICARE, MEDICAID ==
[2022-04-28 18:31] LABS: BLOOD UREA NITROGEN 11 MG/DL (9-23); CALCIUM LEVEL 8.9 MG/DL (8.5-10.1); CARBON DIOXIDE LEVEL 25 MMOL/L (20-31); CHLORIDE LEVEL 106 MMOL/L (98-107); CREATININE FOR GFR 0.93 MG/DL (0.55-1.30); GLOMERULAR FILTRATION RATE > 60.0 (>58); GLUCOSE, FASTING 77 MG/DL (60-100); POTASSIUM SERUM 4.3 MMOL/L (3.5-5.1); SODIUM LEVEL 139 MMOL/L (136-145)
== END ==
LOC: M PLALAB 15:33
PROVIDERS: ATTEND Nurse Practitioner Women's Health
DX: Z01.812 Encounter for preprocedural laboratory examination (principal); R92.2 Inconclusive mammogram; Z91.89 Other specified personal risk factors, not elsewhere classified

== ENCOUNTER → 2022-05-07 | Outpatient (REF) | payer MEDICARE ==
[2022-05-07 19:32] LABS: APPEARANCE, URINE MANUAL CLEAR (CLEAR); BILIRUBIN, URINE MANUAL NEGATIVE (NEGATIVE); BLOOD URINE MANUAL NEGATIVE (NEGATIVE); COLOR, URINE MANUAL LT YELLOW (YELLOW); GLUCOSE, URINE (UA) MANUAL NEGATIVE (NEGATIVE); KETONE, URINE MANUAL NEGATIVE (NEGATIVE); LEUKOCYTE ESTERASE, URINE MAN NEGATIVE (NEGATIVE); NITRITE, URINE MANUAL NEGATIVE (NEGATIVE); PROTEIN, URINE MANUAL NEGATIVE (NEGATIVE); UROBILINOGEN, URINE MANUAL NORMAL (NORMAL)
== END ==
LOC: M SMT 16:53
PROVIDERS: ATTEND Physician Assistant
DX: N39.0 Urinary tract infection, site not specified (principal)

== ENCOUNTER → 2022-05-10 | Outpatient (CLI) | payer MEDICARE, MEDICAID ==
[~2022-05-10] MED LIST changes: +PROHANCE 279.3MG/ML 15ML VIAL As Ordered ONE; +PROHANCE 279.3MG/ML 5ML VIAL As Ordered ONE
== END ==
LOC: M RAD 11:34
PROVIDERS: ATTEND Nurse Practitioner Women's Health
DX: Z85.3 Personal history of malignant neoplasm of breast (principal); Z91.89 Other specified personal risk factors, not elsewhere classified
CPT/HCPCS: A9576; C8908

== ENCOUNTER 2022-06-07 15:03 | Outpatient (RCR) | payer MEDICARE, MEDICAID ==
[~2022-06-07 15:03] MED LIST changes: -PROHANCE 279.3MG/ML 15ML VIAL As Ordered ONE; -PROHANCE 279.3MG/ML 5ML VIAL As Ordered ONE
== END 2022-06-15 ==
LOC: M PT 15:03
PROVIDERS: ATTEND Orthopaedic Surgery
DX: M25.551 Pain in right hip (principal); M47.816 Spondylosis without myelopathy or radiculopathy, lumbar region

== ENCOUNTER 2022-07-05 15:15 | Outpatient (RCR) | payer MEDICARE, MEDICAID | END 2022-07-16 | LOC: M PT 15:15 | PROVIDERS: ATTEND Orthopaedic Surgery | DX: M25.551 Pain in right hip (principal); M47.816 Spondylosis without myelopathy or radiculopathy, lumbar region ==

== ENCOUNTER → 2022-07-06 | Outpatient (CLI) | payer MEDICARE, MEDICAID | LOC: M PAIN 15:45 | PROVIDERS: ATTEND Nurse Practitioner Family | DX: M25.551 Pain in right hip (principal); M51.16 Intervertebral disc disorders with radiculopathy, lumbar region; E03.9 Hypothyroidism, unspecified; H40.9 Unspecified glaucoma; K59.00 Constipation, unspecified; R13.10 Dysphagia, unspecified; M34.1 CR(E)ST syndrome; Z87.891 Personal history of nicotine dependence; Z79.890 Hormone replacement therapy; Z79.899 Other long term (current) drug therapy; Z88.8 Allergy status to other drugs, medicaments and biological substances ==

== ENCOUNTER → 2022-07-09 | Outpatient (CLI) | payer MEDICARE, MEDICAID ==
[~2022-07-09] MED LIST changes: +BUPIVACAINE HCL 0.5% 30ML VIAL As Ordered ONE; +ISOVUE-300 61% 100ML VIAL As Ordered ONE; +LIDOCAINE 1% MDV 20ML VIAL As Ordered ONE; +methylPREDNISolone SUSP 40MG/ML 1ML VIAL (DEPO MEDROL) As Ordered ONE
== END ==
LOC: M RAD 14:55
PROVIDERS: ATTEND Orthopaedic Surgery
DX: M25.551 Pain in right hip (principal)
CPT/HCPCS: 20610; 77002; J1030; Q9967

== ENCOUNTER 2022-08-11 15:13 | Outpatient (RCR) | payer MEDICARE, MEDICAID ==
[~2022-08-11 15:13] MED LIST changes: -BUPIVACAINE HCL 0.5% 30ML VIAL As Ordered ONE; -ISOVUE-300 61% 100ML VIAL As Ordered ONE; -LIDOCAINE 1% MDV 20ML VIAL As Ordered ONE; -methylPREDNISolone SUSP 40MG/ML 1ML VIAL (DEPO MEDROL) As Ordered ONE
== END 2022-08-15 ==
LOC: M PT 15:13
PROVIDERS: ATTEND Orthopaedic Surgery
DX: M25.551 Pain in right hip (principal); M47.816 Spondylosis without myelopathy or radiculopathy, lumbar region

== ENCOUNTER → 2022-09-17 | Outpatient (CLI) | payer MEDICARE, MEDICAID | LOC: M WHC 13:55 | PROVIDERS: ATTEND Nurse Practitioner Women's Health | DX: Z12.31 Encounter for screening mammogram for malignant neoplasm of breast (principal); Z91.89 Other specified personal risk factors, not elsewhere classified; Z80.3 Family history of malignant neoplasm of breast; N63.20 Unspecified lump in the left breast, unspecified quadrant; N63.10 Unspecified lump in the right breast, unspecified quadrant ==

== ENCOUNTER → 2022-10-15 | Outpatient (CLI) | payer MEDICARE, MEDICAID ==
[2022-10-15 18:19] LABS: BASO % 0.5 % (0.0-1.0); EOS # 0.1 10^3/uL (0.0-0.5); EOS % 0.7 % (0.0-3.0); HEMATOCRIT 40.9 % (36.0-47.0); HEMOGLOBIN 13.5 g/dl (12.0-15.5); LYMPH # 1.7 10^3/uL (1.5-5.0); LYMPH % 19.3 % (24.0-44.0); MEAN CORPUSCULAR HEMOGLOBIN 29.4 pg (27.0-33.0); MEAN CORPUSCULAR VOLUME 89.1 fl (80.0-96.0); MONO # 0.5 10^3/uL (0.0-0.8); MONO % 5.4 % (2.0-8.0); NEUTROPHILS # 6.4 10^3/uL (1.5-8.5); NEUTROPHILS % 73.9 % (36.0-66.0); PLATELET COUNT, AUTOMATED 281 10^3/uL (150-450); RED BLOOD COUNT 4.59 10^6/uL (4.00-5.40); WHITE BLOOD COUNT 8.7 10^3/uL (4.0-10.0)
[2022-10-15 18:34] LABS: ALBUMIN 3.9 G/DL (3.2-5.2); ALKALINE PHOSPHATASE 64 U/L (46-116); ALT/SGPT 27 U/L (7.0-40); AST/SGOT 24 U/L (<34); BILIRUBIN,TOTAL 0.5 MG/DL (0.3-1.2); BLOOD UREA NITROGEN 16 MG/DL (9-23); CALCIUM LEVEL 8.8 MG/DL (8.5-10.1); CARBON DIOXIDE LEVEL 25 MMOL/L (20-31); CHLORIDE LEVEL 108 MMOL/L (98-107); CHOLESTEROL LEVEL 228 MG/DL (<200); CHOLESTEROL RISK RATIO 5.14 (<5); CREATININE FOR GFR 0.99 MG/DL (0.55-1.30); GLOMERULAR FILTRATION RATE > 60.0 (>58); GLUCOSE, FASTING 84 MG/DL (60-100); HDL CHOLESTEROL 44.3 MG/DL (>40); LDL CHOLESTEROL 152.9 MG/DL (<100); NON-HDL-C 183.7 MG/DL; POTASSIUM SERUM 3.9 MMOL/L (3.5-5.1); SODIUM LEVEL 139 MMOL/L (136-145); TOTAL PROTEIN 6.9 G/DL (5.7-8.2); TRIGLYCERIDES LEVEL 154 MG/DL (<150)
[2022-10-15 18:36] LABS: FREE T4 1.24 NG/DL (0.89-1.76)
[2022-10-15 18:37] LABS: THYROID STIMULATING HORMONE 4.371 uIU/ML (0.55-4.78)
== END ==
LOC: M LAB 17:01
PROVIDERS: ATTEND Student in an Organized Health Care Education/Training Program
DX: E03.9 Hypothyroidism, unspecified (principal)

== ENCOUNTER → 2022-10-25 | Outpatient (CLI) | payer MEDICARE, MEDICAID | LOC: M PAIN 15:15 | PROVIDERS: ATTEND Nurse Practitioner Family | DX: M25.551 Pain in right hip (principal); M51.16 Intervertebral disc disorders with radiculopathy, lumbar region; E03.9 Hypothyroidism, unspecified; M54.50 Low back pain, unspecified; M34.1 CR(E)ST syndrome; H91.93 Unspecified hearing loss, bilateral; H40.9 Unspecified glaucoma; M16.11 Unilateral primary osteoarthritis, right hip; M79.18 Myalgia, other site; K59.00 Constipation, unspecified; R13.10 Dysphagia, unspecified; Z87.891 Personal history of nicotine dependence; Z79.890 Hormone replacement therapy; Z79.899 Other long term (current) drug therapy; Z88.8 Allergy status to other drugs, medicaments and biological substances ==

== ENCOUNTER → 2022-11-05 | Outpatient (CLI) | payer MEDICARE, MEDICAID | LOC: M SOG 07:58 | PROVIDERS: ATTEND Orthopaedic Surgery | DX: Z53.9 Procedure and treatment not carried out, unspecified reason (principal) ==

== ENCOUNTER → 2023-01-25 | Outpatient (CLI) | payer MEDICARE, MEDICAID ==
[~2023-01-25] MED LIST changes: +CELE0.09; -CELE1CAP9
== END ==
LOC: M PAIN 14:30
PROVIDERS: ATTEND Nurse Practitioner Family
DX: M25.551 Pain in right hip (principal); M51.16 Intervertebral disc disorders with radiculopathy, lumbar region; G89.29 Other chronic pain; E03.9 Hypothyroidism, unspecified; M54.50 Low back pain, unspecified; H40.9 Unspecified glaucoma; H91.93 Unspecified hearing loss, bilateral; M16.11 Unilateral primary osteoarthritis, right hip; M79.18 Myalgia, other site; K59.00 Constipation, unspecified; R13.10 Dysphagia, unspecified; M34.1 CR(E)ST syndrome; Z87.891 Personal history of nicotine dependence; Z79.899 Other long term (current) drug therapy; Z88.8 Allergy status to other drugs, medicaments and biological substances

== ENCOUNTER 2023-05-10 08:50 | Day surgery (SDC) | payer MEDICARE, MEDICAID ==
[~2023-05-10] VITALS: Ht 167.6 cm; Wt 95.7 kg
[~2023-05-10 08:50] MED LIST changes: +BIMA01SOL OD; +LANS30CA93 PO; +LEVO88TA3 PO; +MINO50CA3 PO; +NS 1,000 ML IV ONE
[2023-05-10] MEDS ORDERED: LIDOCAINE 2% 100MG/5ML SDV (FOR ANES.) As Ordered ONE (09:41)
[2023-05-10] MEDS ORDERED: propofoL 200 MG/20 ML VIAL As Ordered ONE ×2 (09:41→10:30)
[2023-05-10 10:43] VITALS: TEMP 98
[2023-05-10] MEDS ORDERED: GLYCOPYRROLATE INJ 0.2 MG/ML 2 ML VIAL As Ordered ONE (10:47)
[2023-05-10 13:40] VITALS: BP 118/62; O2SAT 97
== END 2023-05-10 14:15 | disposition home or self-care (01) ==
LOC: M OPP 08:50
PROVIDERS: ATTEND Internal Medicine Gastroenterology
DX: Z86.010 Personal history of colon polyps (principal); D12.3 Benign neoplasm of transverse colon; K64.8 Other hemorrhoids; K57.30 Diverticulosis of large intestine without perforation or abscess without bleeding; Z79.2 Long term (current) use of antibiotics; Z79.1 Long term (current) use of non-steroidal anti-inflammatories (NSAID); Z79.890 Hormone replacement therapy; Z79.899 Other long term (current) drug therapy

== ENCOUNTER → 2023-05-13 | Outpatient (CLI) | payer MEDICARE, MEDICAID ==
[~2023-05-13] MED LIST changes: -NS 1,000 ML IV ONE; +PROHANCE 279.3MG/ML 15ML VIAL ONE; +PROHANCE 279.3MG/ML 5ML VIAL ONE
== END ==
LOC: M PLAIMG 13:39
PROVIDERS: ATTEND Nurse Practitioner Women's Health
DX: R92.2 Inconclusive mammogram (principal); Z80.3 Family history of malignant neoplasm of breast; R92.333 Mammographic heterogeneous density, bilateral breasts
CPT/HCPCS: A9576; C8908

== ENCOUNTER → 2023-09-23 | Outpatient (CLI) | payer MEDICARE, MEDICAID ==
[~2023-09-23] MED LIST changes: -PROHANCE 279.3MG/ML 15ML VIAL ONE; -PROHANCE 279.3MG/ML 5ML VIAL ONE
== END ==
LOC: M WHC 14:22
PROVIDERS: ATTEND Nurse Practitioner Women's Health
DX: Z91.89 Other specified personal risk factors, not elsewhere classified (principal); Z80.3 Family history of malignant neoplasm of breast; R92.333 Mammographic heterogeneous density, bilateral breasts; Z12.31 Encounter for screening mammogram for malignant neoplasm of breast

== ENCOUNTER → 2023-10-05 | Outpatient (REF) | payer MEDICARE, MEDICAID ==
[2023-10-05 19:07] LABS: BASO % 0.5 % (0.0-1.0); EOS # 0.1 10^3/uL (0.0-0.5); EOS % 1.2 % (0.0-3.0); HEMATOCRIT 45.1 % (36.0-47.0); HEMOGLOBIN 14.7 g/dl (12.0-15.5); LYMPH # 1.5 10^3/uL (1.5-5.0); LYMPH % 17.1 % (24.0-44.0); MEAN CORPUSCULAR HEMOGLOBIN 29.3 pg (27.0-33.0); MEAN CORPUSCULAR HGB CONC 32.6 g/dl (32.0-36.5); MEAN CORPUSCULAR VOLUME 89.8 fl (80.0-96.0); MONO # 0.5 10^3/uL (0.0-0.8); MONO % 5.4 % (2.0-8.0); NEUTROPHILS # 6.7 10^3/uL (1.5-8.5); NEUTROPHILS % 75.2 % (36.0-66.0); PLATELET COUNT, AUTOMATED 310 10^3/uL (150-450); RED BLOOD COUNT 5.02 10^6/uL (4.00-5.40); WHITE BLOOD COUNT 8.9 10^3/uL (4.0-10.0)
[2023-10-05 19:38] LABS: BILIRUBIN,TOTAL 0.7 MG/DL (0.3-1.2); CALCIUM LEVEL 9.7 MG/DL (8.5-10.1); CHOLESTEROL RISK RATIO 5.38 (<5); CREATININE FOR GFR 1.07 MG/DL (0.55-1.30); LDL CHOLESTEROL 174.2 MG/DL (<100); POTASSIUM SERUM 4.1 MMOL/L (3.5-5.1)
[2023-10-05 19:39] LABS: FREE T4 1.1 NG/DL (0.89-1.76); THYROID STIMULATING HORMONE 7.15 uIU/ML (0.55-4.78)
[2023-10-05 19:42] LABS: HEMOGLOBIN A1c 4.7 % (4.0-6.0)
== END ==
LOC: M SFHCLERA 15:33
PROVIDERS: ATTEND Physician Assistant
DX: E78.2 Mixed hyperlipidemia (principal); E03.9 Hypothyroidism, unspecified; Z79.899 Other long term (current) drug therapy

== ENCOUNTER → 2024-03-23 | Outpatient (REF) | payer MEDICARE, MEDICAID ==
[2024-03-23 17:51] LABS: ALBUMIN 3.6 G/DL (3.2-5.2); ALKALINE PHOSPHATASE 68 U/L (35-104); ALT/SGPT 56 U/L (7.0-40); AST/SGOT 34 U/L (<34); BILIRUBIN,TOTAL 0.7 MG/DL (0.3-1.2); BLOOD UREA NITROGEN 12 MG/DL (9-23); CALCIUM LEVEL 9.7 MG/DL (8.5-10.1); CARBON DIOXIDE LEVEL 25 MMOL/L (20-31); CHLORIDE LEVEL 105 MMOL/L (98-107); CREATININE FOR GFR 0.87 MG/DL (0.55-1.30); GLOMERULAR FILTRATION RATE > 60.0 (>51); GLUCOSE, FASTING 86 MG/DL (60-100); POTASSIUM SERUM 4.2 MMOL/L (3.5-5.1); SODIUM LEVEL 139 MMOL/L (136-145); THYROID STIMULATING HORMONE 2.147 uIU/ML (0.55-4.78); TOTAL 25(OH) VITAMIN D 8.6 NG/ML (20.0-100.0); TOTAL PROTEIN 7.3 G/DL (5.7-8.2)
[2024-03-23 17:53] LABS: FREE T4 1.26 NG/DL (0.89-1.76)
== END ==
LOC: M SFHCLERA 15:00
DX: H91.93 Unspecified hearing loss, bilateral (principal); M34.9 Systemic sclerosis, unspecified; E03.9 Hypothyroidism, unspecified; K21.9 Gastro-esophageal reflux disease without esophagitis; E78.2 Mixed hyperlipidemia; Z79.899 Other long term (current) drug therapy

== ENCOUNTER → 2024-05-09 | Outpatient (CLI) | payer MEDICARE, MEDICAID | LOC: M RAD 12:50 | DX: M79.651 Pain in right thigh (principal) ==

== ENCOUNTER → 2024-06-06 | Outpatient (CLI) | payer MEDICARE, MEDICAID | LOC: M SOG 07:54 | PROVIDERS: ATTEND Physician Assistant | DX: M25.561 Pain in right knee (principal) ==

== ENCOUNTER 2024-11-05 13:41 | Outpatient (RCR) | payer MEDICARE, MEDICAID | END 2024-11-15 | LOC: M PT 13:41 | PROVIDERS: ATTEND Physician Assistant | DX: M25.561 Pain in right knee (principal); Z53.8 Procedure and treatment not carried out for other reasons ==

== ENCOUNTER 2024-11-30 14:28 | Outpatient (RCR) | payer MEDICARE, MEDICAID | END 2024-12-16 | LOC: M PT 14:28 | PROVIDERS: ATTEND Physician Assistant | DX: M25.561 Pain in right knee (principal) ==

== ENCOUNTER → 2024-11-30 | Outpatient (CLI) | payer MEDICARE, MEDICAID ==
[2024-11-30 17:33] LABS: ALT/SGPT 46.0 U/L (7.0-40); AST/SGOT 35.0 U/L (<34)
== END ==
LOC: M LAB 16:05
DX: R74.8 Abnormal levels of other serum enzymes (principal)